=== PATIENT | male | born 1960 | race Caucasian/White ===

== ENCOUNTER → 2016-08-25 | Outpatient (CLI) | payer BC, OTHER ==
[~2016-08-25] VITALS: Ht 165.1 cm; Wt 87.5 kg
[~2016-08-25] MED LIST: ADULT LOW DOSE81 MG PO; ALLOPURINOL 10100 M1 PO; AMBIEN 10 MG TA10 MG PO; AMBIEN CR 6.26.25 MG PO; AMBIENCR PO; ASPIRIN325 PO; FISH OIL 1,0001 EAC5 PO; HALCION0.25 MG PO; LYRICA 75 MG CA75 MG PO; NEURONTIN 300300 M1 PO; OXYCONTIN20 M1 PO; PERCOCET 10-321 EACH PO; RESTORIL15 MG PO; TRILEPTAL150 MG OR; TRILEPTAL150 MG PO
--- NOTE | ~2016-08-25 | HPC ---
[facility] [place] [address] PAIN MANAGEMENT CONSULTATION Name: EUGENIOADALBERTO Oksana Room #: REG [facility] Margaret#: [id number] Admission: 08/25/16 Attend Phys: Noe Jason DO Discharge: Date of : 58 Report #: [id number] THIS REPORT FOR: //name// CC: Harris Jason The patient is a very pleasant 55-year-old gentleman, well known to the pain clinic, typically treated for cervical radiculopathy, status post fairly extensive posterior decompression and neuropathic pain, requiring complex medication management. At last visit, we were concerned for what appeared to be some ongoing persistent hypertension. He returns to pain clinic today. He was seen for a prolonged visit from approximately 08:00 a.m. to 08:30. Greater than 50% of this 25+ minute visit was spent counseling the patient. The patient has been stable on OxyContin 20 mg b.i.d. with Percocet 10/325 up to 4 a day. This equates to a little bit of a supratherapeutic dose, 80 mg of oxycodone equivalent to about 120 mEq of morphine. Nonetheless, he has been quite functional and stable. No problems with daytime somnolence, mental acuity changes, and/or constipation. Last urine drug screen was on 05/16/2016; was positive for prescribed medications and no other medications. We had prescribed Halcion off and on for sleep. He is completely weaned off of this agent. He does use Lyrica, had been prescribed 75 mg 2 tablets at night. He had weaned down to one at night, and really did not notice any manager of change the last 3-4 weeks when he dropped that dose. He returns to pain clinic today noting medications are generally quite sufficient to keep him functional. 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 Notes he has some chronic right shoulder pain, but overall rates his pain at 2/10. PHYSICAL EXAMINATION: Shows a 55-year-old gentleman, BMI is 32.1 kilograms per meter squared. Blood pressure today is 140/84, pulse of 69, respirations are 14. Still on no antihypertensive agents, but he has tried to eat little better, and is trying to lose some weight. BMI today is 32.1 kilograms per meter squared. He had been in the 32.6-32.4, BMI recently. He is again trying to get down to BMI of around 30 kilograms per meter squared. Doing this with dietary discretion and activity. RECOMMENDATION: Long discussion with the patient today about, trying to gradually wean opiate, our goal will be to get down to around 60 mg of oxycodone. Roughly equivalent to 90 mEq of morphine. We talked about trying to drop one Percocet a day (currently takes 4 p.r.n.), drop down to about 3 a day over the next month, and if able, perhaps drop one tablet to 1/2 tablet i.e., using two of the 10 mg Percocet and one 5 mg Percocet p.r.n. Again, with a total goal of dropping down to two Percocet 10/325 and continuing OxyContin [address] [address] PAIN MANAGEMENT CONSULTATION Name: ADALBERTO BECKER Room #: REG [facility] Robles#: [id number] Admission: 08/25/16 Attend Phys: Noe SarabiaGaudencio Eren, DO Discharge: Date of : 58 Report #: [id number] mg b.i.d. over the month. We also talked about Lyrica, having dropped from 150 mg to 75 mg with no notable change in the past 3 weeks. I did give him samples of 50 mg Lyrica tablets to take at bedtime (21 tablets). If he does 3 weeks of this medication, and notes no significant change or i.e. increase in his pain, we will have him simply discontinue that agent altogether. We reviewed the fact that opiate medications are being used to provide analgesia adequate to support activities of daily living, not attempting to achieve a specific pain score on the 0-10 Visual Analog Scale. The current opiate medications are providing sufficient analgesia to allow the patient to participate in activities of daily living. The patient is not exhibiting any aberrant behavior suggestive of drug diversion. The patient is not having any adverse reactions to medications. The patient is not suffering from daytime somnolence or mental acuity changes. The patient is managing opiate-induced constipation with appropriate ciod-mrs-lumugrf agents and dietary considerations. The patient was counseled on concern for caution with operating a motor vehicle while using opiate medications. A physical exam was performed and the patient's functional status was evaluated. All patients with back pain were advised against the bed rest greater than 4 days and were advised to return to normal activities. Pain score assessment was noted and the treatment plan was reviewed with the patient. All current medications, both prescribed and OTC were reviewed and reconciled on the electronic medical record. Tobacco screening was accomplished and smoking cessation was advised when indicated. BMI was noted and diet/exercise modification was recommended for all patients following outside normal parameters. I reviewed with the patient today their responsibilities to safeguard prescription medications, reviewed their responsibility to utilize medications only as prescribed by the physician. They are to seek and receive pain medications only from 1 physician group ( [facility]). They are to use 1 pharmacy and keep the clinic informed if they change pharmacies. Their responsibilities include making followup visits in a timely fashion and to avoid abrupt discontinuation of medication usage. Their responsibilities further include bringing their medications (bottles from the pharmacy with residual pills) to the visit for possible confirmation of pill counts and the patient understands it is their responsibility to submit to random drug screens to ensure both that the medications prescribed are present, and that no other controlled substances are present. All prescriptions provided today were generated electronically. ASSESSMENT: Cervical radiculopathy status post decompressive laminectomy, neuropathic pain component, requiring complex medication management. Prolonged [facility] [address] [place] [address] PAIN MANAGEMENT CONSULTATION Name: ADALBERTO BECKER Room #: REG [facility] Margaret#: [id number] Admission: 08/25/16 Attend Phys: Noe Jason DO Discharge: Date of : 58 Report #: [id number] visit with the patient today, spent reviewing therapeutic options, discussing rationale for trying to use the lowest opiate load, i.e., no significant changes in functional status, with low doses, greater than about 90-100 mg of morphine and concern for higher risk of drug overdose with these agents. The patient understands and is "on board". Discharged in good and stable condition. Followup will be in 3 months for reevaluation. I will have him bring back his prescription bottles. We will do pill-count and see how he was able to wean agents, although for the next 3 months, I did write for his current dose, i.e. Percocet 10/325 up to 4 a day, along with his baseline OxyContin 20 mg b.i.d. <ELECTRONICALLY SIGNED> By: Noe Jason DO 08/27/16 0729 [id number] Noe Jason DO /nt
[2016-08-25 08:16] VITALS: BP 140/84
== END | disposition home or self-care (01) ==
LOC: PAIN 06:57
DX: M54.12 Radiculopathy, cervical region (principal); G89.29 Other chronic pain; Z98.890 Other specified postprocedural states

== ENCOUNTER → 2016-10-31 | Outpatient (CLI) | payer BC, OTHER ==
[~2016-10-31] VITALS: Ht 167.6 cm; Wt 88.0 kg
[~2016-10-31] MED LIST changes: +PERCOCET 7.5-31 EAC1 PO; +PERCOCET 7.5-31 EACH PO
--- NOTE | ~2016-10-31 | HPC ---
[facility] [place] [place] [address] PAIN MANAGEMENT CONSULTATION Name: EUGENIO,ADALBERTO Oksana [facility] [id number] Admission: 10/31/16 Attend Phys: Noe Jason DO Discharge: Date of : 58 Report #: [id number] THIS REPORT FOR: //name// CC: JEFFERY Jason DATE OF SERVICE: 10/31/2016 The patient is a very pleasant 56-year-old gentleman long treated for cervical radiculopathy status post decompressive laminectomy, neuropathic pain requiring complex medication management. Last seen in the pain clinic on 08/25/2016. Continued on baseline narcotics including OxyContin 20 mg b.i.d. with Percocet 10/325 four a day. He successfully weaned off Lyrica with really no significant changes in his function. Today, we did discuss concern for supratherapeutic opiate load, taken essentially 150 mEq of morphine (100 mg of oxycodone) daily. After a long discussion, we elected to trial weaning 10% overall, we will decrease Percocet 10/325 to a 7.5/325 four a day, continuing OxyContin 20 mg b.i.d. The patient notes overall pain is about 3/10, well controlled with current medication. Notes he feels a little more alert during the day having weaned Lyrica. Notes pain continues in the neck and right shoulder. PHYSICAL EXAMINATION: Shows a 56-year-old gentleman, BMI is 31.3 kilograms per meter squared. Vital signs show modest hypertension of 159/87, pulse 67, respirations 14. Cervical range of motion is limited, significant cosmetic defect in the mid cervical spine, status post decompressive laminectomy multiple levels here. Does have limited cervical range of motion. Upper extremity strength, however, is preserved. Medications were reconciled. ASSESSMENT: Symptomatic cervical radiculopathy, status post decompressive laminectomy and neuropathic pain requiring complex medication management. RECOMMENDATIONS: Continue OxyContin 20 mg b.i.d. We will try decreasing the Percocet 10/325 to 7.5/325 tablet. This represents an overall 10% decrease in his opiate load. Follow up in 3 months for reevaluation. A note is made of that urine drug screen 05/26/2016 was positive for prescribed medications. [address] [address] PAIN MANAGEMENT CONSULTATION Name: EUGENIOADALBERTO Room #: REG [facility] Robles#: [id number] Admission: 10/31/16 Attend Phys: Noe Jason DO Discharge: Date of : 58 Report #: [id number] Discharged in good and stable condition. Follow up in 3 months. By: [id number] Noe Jason DO /nt
[2016-10-31 09:53] VITALS: BP 159/87
== END ==
LOC: PAIN 06:55
DX: M54.12 Radiculopathy, cervical region (principal)

== ENCOUNTER → 2017-01-12 | Outpatient (CLI) | payer BC, OTHER ==
[~2017-01-12] VITALS: Ht 167.6 cm; Wt 87.5 kg
--- NOTE | ~2017-01-12 | HPC ---
[place] [address] PAIN MANAGEMENT CONSULTATION Name: EUGENIOADALBERTO Oksana Room #: REG [facility] Robles#: [id number] Admission: 01/12/17 Attend Phys: Noe Jason DO Discharge: Date of : 58 Report #: [id number] THIS REPORT FOR: //name// CC: JEFFERY Jason DATE OF SERVICE: 01/12/2017 HISTORY OF PRESENT ILLNESS: The patient is a very pleasant 56-year-old gentleman being seen for symptomatic cervical radiculopathy status post extensive decompressive laminectomy, neuropathic pain requiring complex medication management. The patient returns to pain clinic today, last visit 10/31/2016. We continued OxyContin 20 mg b.i.d., but decreased Percocet from 10-7.5/325 four a day. Decreased oxycodone overall dose nominally from 80 to 70 mg. The patient notes perhaps some slight change, but states he is doing reasonably well with this. 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 He went back to school, got a masters in education. 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 We have elected to continue the Percocet 7.5/325 through this month and next month. They resume football training in March when I will increase his Percocet back to 10/325 at that point. He notes that discontinuing the Lyrica, which we had done earlier in the year, has afforded significant improvement in his sedation concerns. Really did not have significant change in neuropathic pain. PHYSICAL EXAMINATION: Otherwise notes 56-year-old gentleman. BMI is 31.2 kilograms per meter squared. Significant cervical kyphotic change secondary to the surgery and a posterior midline defect secondary to the extensive decompression. Upper extremity strength is preserved though he has pain, right greater than left arm and slight decrease in subjective strength, though again he is fairly robust active gentleman I cannot deter a significant loss. HEART: Regular rhythmical. LUNGS: Clear. VITAL SIGNS: Stable as noted in the EMR. We reviewed the fact that opiate medications are being used to provide analgesia adequate to support activities of daily living, not attempting to achieve a specific pain score on the 0-10 Visual Analog Scale. The current opiate medications are providing sufficient analgesia to allow the patient to participate in activities of daily living. The patient is not exhibiting any aberrant behavior suggestive of drug diversion. The patient is not having any [address] [address] PAIN MANAGEMENT CONSULTATION Name: EUGENIOADALBERTO Oksana Room #: REG [facility] Margaret#: [id number] Admission: 01/12/17 Attend Phys: Noe Jason DO Discharge: Date of : 58 Report #: [id number] adverse reactions to medications. The patient is not suffering from daytime somnolence or mental acuity changes. The patient is managing opiate-induced constipation with appropriate okrz-hdy-emckase agents and dietary considerations. The patient was counseled on concern for caution with operating a motor vehicle while using opiate medications. A physical exam was performed and the patient's functional status was evaluated. All patients with back pain were advised against the bed rest greater than 4 days and were advised to return to normal activities. Pain score assessment was noted and the treatment plan was reviewed with the patient. All current medications, both prescribed and OTC were reviewed and reconciled on the electronic medical record. Tobacco screening was accomplished and smoking cessation was advised when indicated. BMI was noted and diet/exercise modification was recommended for all patients following outside normal parameters. I reviewed with the patient today their responsibilities to safeguard prescription medications, reviewed their responsibility to utilize medications only as prescribed by the physician. They are to seek and receive pain medications only from 1 physician group ( [facility]). They are to use 1 pharmacy and keep the clinic informed if they change pharmacies. Their responsibilities include making followup visits in a timely fashion and to avoid abrupt discontinuation of medication usage. Their responsibilities further include bringing their medications (bottles from the pharmacy with residual pills) to the visit for possible confirmation of pill counts and the patient understands it is their responsibility to submit to random drug screens to ensure both that the medications prescribed are present, and that no other controlled substances are present. All prescriptions provided today were generated electronically. ASSESSMENT: Chronic pain syndrome requiring complex medication management, neuropathic pain, status post cervical decompressive laminectomy requiring complex medication management. RECOMMENDATION: 1. Continue OxyContin 20 mg b.i.d. unchanged. 2. Continue Percocet 7.5/325 for this month and next month, I have taken the liberty of increasing back to 10/325 product for the "eight week" release prescription, which will be in March. I will see him back in 3 months to evaluate efficacy. Incidentally, the last urine drug screen was in May of 2016, positive for prescribed medications. <ELECTRONICALLY SIGNED> By: Noe Jason DO 01/14/17 1252 [id number] 1212 Noe Jason DO /nt
[2017-01-12 08:00] VITALS: BP 130/86
== END | disposition home or self-care (01) ==
LOC: PAIN 06:33
DX: G89.4 Chronic pain syndrome (principal); M54.12 Radiculopathy, cervical region; F11.20 Opioid dependence, uncomplicated; Z98.890 Other specified postprocedural states

== ENCOUNTER → 2017-04-03 | Outpatient (CLI) | payer BC, OTHER ==
--- NOTE | ~2017-04-03 | HPC ---
[facility] [place] [address] PAIN MANAGEMENT CONSULTATION Name: EUGENIO,ADALBERTO Oksana Room #: REG [facility] Margaret#: [id number] Admission: 04/03/17 Attend Phys: Noe Jason DO Discharge: Date of : 58 Report #: [id number] THIS REPORT FOR: //name// CC: JEFFERY Jason HISTORY OF PRESENT ILLNESS: The patient is a pleasant 56-year-old gentleman long treated for symptomatic cervical radiculopathy status post extensive decompressive laminectomy, neuropathic pain requiring high risk complex medication management. The patient has been remarkably stable on current medications, though at last visit, we did increase his Percocet a little from 7.5/325 to 10/325. The patient returns to pain clinic today noting pain is in the neck, right shoulder and arm, chronic, rates at 4 on a VAS and exacerbated with activity. 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 He continues to be quite physically active. Notes that the slight increase in his opiate analgesic has been helpful. We reviewed the fact that opiate medications are being used to provide analgesia adequate to support activities of daily living, not attempting to achieve a specific pain score on the 0-10 Visual Analog Scale. The current opiate medications are providing sufficient analgesia to allow the patient to participate in activities of daily living. The patient is not exhibiting any aberrant behavior suggestive of drug diversion. The patient is not having any adverse reactions to medications. The patient is not suffering from daytime somnolence or mental acuity changes. The patient is managing opiate-induced constipation with appropriate ykhu-iei-prrrnzc agents and dietary considerations. The patient was counseled on concern for caution with operating a motor vehicle while using opiate medications. A physical exam was performed and the patient's functional status was evaluated. All patients with back pain were advised against the bed rest greater than 4 days and were advised to return to normal activities. Pain score assessment was noted and the treatment plan was reviewed with the patient. All current medications, both prescribed and OTC were reviewed and reconciled on the electronic medical record. Tobacco screening was accomplished and smoking cessation was advised when indicated. BMI was noted and diet/exercise modification was recommended for all patients following outside normal parameters. I reviewed with the patient today their responsibilities to safeguard prescription medications, reviewed their responsibility to utilize medications only as prescribed by the physician. They are to seek and receive pain medications only from 1 physician group ( [facility]). They are to use 1 pharmacy and keep the clinic informed if they change pharmacies. Their [address] [address] PAIN MANAGEMENT CONSULTATION Name: ADALBERTO BECKER [facility] [id number] Admission: 04/03/17 Attend Phys: Noe Jason DO Discharge: Date of : 58 Report #: [id number] responsibilities include making followup visits in a timely fashion and to avoid abrupt discontinuation of medication usage. Their responsibilities further include bringing their medications (bottles from the pharmacy with residual pills) to the visit for possible confirmation of pill counts and the patient understands it is their responsibility to submit to random drug screens to ensure both that the medications prescribed are present, and that no other controlled substances are present. All prescriptions provided today were generated electronically. PHYSICAL EXAMINATION: Shows a 56-year-old gentleman. BMI is 31.2 kilograms per meter squared. Vital signs stable. Cervical range of motion is significantly limited, also has significant cosmetic defect, status post extensive posterior decompressive laminectomy. Upper extremity strength, however, is fairly preserved. Gait is tandem. Lower extremity strength is preserved. ASSESSMENT: Symptomatic cervical radiculopathy status post decompressive laminectomy requiring high risk complex medication management. RECOMMENDATIONS: 1. Buccal swab today, no aberrant behavior suggestive for drug diversion, simply complying with opiate consent to treat contract. 2. Continue current medication including OxyContin 20 mg b.i.d. and Percocet 10/325 up to 4 a day. 3. Follow up in 3 months for reevaluation, earlier if needed. <ELECTRONICALLY SIGNED> By: Noe Jason DO 04/09/17 0847 1219 Noe Jason DO /nt
[2017-04-03 13:07] VITALS: BP 148/95
== END | disposition home or self-care (01) ==
LOC: PAIN 12:53
DX: M54.12 Radiculopathy, cervical region (principal); G89.29 Other chronic pain; Z98.890 Other specified postprocedural states; Z87.891 Personal history of nicotine dependence

== ENCOUNTER → 2017-09-24 | Outpatient (CLI) | payer BC, OTHER ==
[~2017-09-24] VITALS: Ht 167.6 cm; Wt 91.5 kg
[~2017-09-24] MED LIST changes: +OXYCONTIN10 M1 PO; +PERCOCET 10-321 EAC1 PO
--- NOTE | ~2017-09-24 | HPC ---
[facility] [place] [address] PAIN MANAGEMENT CONSULTATION Name: EUGENIOADALBERTO Oksana Room #: REG [facility] Margaret#: [id number] Admission: 09/24/17 Attend Phys: Noe Jason DO Discharge: Date of : 58 Report #: [id number] THIS REPORT FOR: //name// CC: JEFFERY Jason DATE OF SERVICE: 09/24/2017 HISTORY OF PRESENT ILLNESS: The patient is a very pleasant 56-year-old gentleman being treated for cervical radiculopathy status post decompressive laminectomy, neuropathic pain requiring complex medication management. Last seen in the pain clinic on 06/18/2017, continued on Percocet 10/325 four a day for breakthrough pain, OxyContin 20 mg b.i.d. for baseline pain. Equates to about 120 mEq of morphine. We talked about weaning in the spring. He returns to the pain clinic today. His prior random drug screen on 04/03/2017 was positive for prescribed medications as well as nicotine. He states he does use occasional tobacco "dip." I did stress the patient today there is a correlation with nicotine use and axial back pain. Suggest that he consider discontinuing nicotine use. Otherwise, he notes he is doing well with current medication. 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 Does note with physical activity, pain does become a little more problematic. Continues to have pain in neck, shoulder and arms. We reviewed the fact that opiate medications are being used to provide analgesia adequate to support activities of daily living, not attempting to achieve a specific pain score on the 0-10 Visual Analog Scale. The current opiate medications are providing sufficient analgesia to allow the patient to participate in activities of daily living. The patient is not exhibiting any aberrant behavior suggestive of drug diversion. The patient is not having any adverse reactions to medications. The patient is not suffering from daytime somnolence or mental acuity changes. The patient is managing opiate-induced constipation with appropriate fyud-qjt-lmmsyes agents and dietary considerations. The patient was counseled on concern for caution with operating a motor vehicle while using opiate medications. A physical exam was performed and the patient's functional status was evaluated. All patients with back pain were advised against the bed rest greater than 4 days and were advised to return to normal activities. Pain score assessment was noted and the treatment plan was reviewed with the patient. All current medications, both prescribed and OTC were reviewed and reconciled on the electronic medical record. Tobacco screening was accomplished and smoking cessation was advised when indicated. BMI was noted and diet/[place] [address] PAIN MANAGEMENT CONSULTATION Name: ADALBERTO BECKER Room #: REG [facility] Margaret#: [id number] Admission: 09/24/17 Attend Phys: Noe Jason DO Discharge: Date of : 58 Report #: [id number] modification was recommended for all patients following outside normal parameters. I reviewed with the patient today their responsibilities to safeguard prescription medications, reviewed their responsibility to utilize medications only as prescribed by the physician. They are to seek and receive pain medications only from 1 physician group ([facility]). They are to use 1 pharmacy and keep the clinic informed if they change pharmacies. Their responsibilities include making followup visits in a timely fashion and to avoid abrupt discontinuation of medication usage. Their responsibilities further include bringing their medications (bottles from the pharmacy with residual pills) to the visit for possible confirmation of pill counts and the patient understands it is their responsibility to submit to random drug screens to ensure both that the medications prescribed are present, and that no other controlled substances are present. All prescriptions provided today were generated electronically. PHYSICAL EXAMINATION: Otherwise unchanged. Cervical range of motion is significantly limited. Fairly significant cosmetic defect, status post posterior approach of cervical fusion. Upper extremity strength, however, is fairly significant. Gait is tandem. Lower extremity strength is preserved. ASSESSMENT: Symptomatic cervical radiculopathy, status post posterior decompressive laminectomy and fusion, neuropathic pain requiring complex medication management. RECOMMENDATION: Continue OxyContin 20 mg b.i.d. For the next 3 months, we will continue Percocet 10/325 up to 4 a day. We will plan on decreasing this to 7.5/325 at next visit, we had tried to wean opiate in the summer in the past and has done reasonably well. Discharged in good and stable condition. Follow up in 3 months for reevaluation. <ELECTRONICALLY SIGNED> By: Noe Jason DO 09/28/17 0747 [id number] Noe Jason DO /nt
[2017-09-24 14:17] VITALS: BP 151/83
== END ==
LOC: PAIN 07:10
DX: M54.12 Radiculopathy, cervical region (principal); M96.1 Postlaminectomy syndrome, not elsewhere classified; Z79.899 Other long term (current) drug therapy

== ENCOUNTER → 2017-12-10 | Outpatient (CLI) | payer BC, OTHER ==
[~2017-12-10] VITALS: Ht 167.6 cm; Wt 89.2 kg
[~2017-12-10] MED LIST changes: -OXYCONTIN10 M1 PO; -PERCOCET 10-321 EAC1 PO
--- NOTE | ~2017-12-10 | HPC ---
[facility] [place] [place] [address] [place] [address] PAIN MANAGEMENT CONSULTATION Name: EUGENIOADALBERTO Oksana Room #: REG [facility]#: [id number] Admission: 12/10/17 Attend Phys: Noe Jason DO Discharge: Date of : 58 Report #: [id number] THIS REPORT FOR: //name// CC: JEFFERY Jason DATE OF SERVICE: 12/10/2017 The patient is a very pleasant 57-year-old gentleman, long treated in the pain clinic for symptomatic cervical radiculopathy requiring complex medication management with neuropathic pain component. The patient had extensive posterior cervical decompression with some myelopathic symptoms, but has been stable on Percocet 10/325 four a day with OxyContin 20 mg for breakthrough pain b.i.d. This equates to fairly high dose of opiate, 120 mg of morphine a day. At last visit, 09/24/2017, we had discussed need to start to wean opiate load over time. The patient was also counseled regarding nicotine use (tobacco "dip"). He returns to pain clinic today noting subjective pain score is 2 on a VAS. 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 He continues to be quite physically active. 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 He returned to school getting 2 master's degrees, both in education and special needs education. He is desirous of making an impact on young lives and is looking towards working in school administration in the near future. 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 He denies any problem with daytime somnolence, mental acuity changes or constipation. PHYSICAL EXAMINATION: GENERAL: Shows a pleasant 57-year-old gentleman with significant cosmetic defect status post extensive posterior cervical decompression, mild cervical kyphosis. VITAL SIGNS: The BMI 31.7 kg per meter squared, blood pressure 143/88, pulse 60, respirations 16, room air oxygen saturation is 100%. MUSCULOSKELETAL: Cervical range of motion is limited. Upper extremity strength is preserved. Gait is tandem. We reviewed the fact that opiate medications are being used to provide analgesia adequate to support activities of daily living, not attempting to achieve a specific pain score on the 0-10 Visual Analog Scale. [place] [address] PAIN MANAGEMENT CONSULTATION Name: ADALBERTO BECKER Room #: REG [facility]#: [id number] Admission: 12/10/17 Attend Phys: Noe Jason DO Discharge: Date of : 58 Report #: [id number] medications are providing sufficient analgesia to allow the patient to participate in activities of daily living. The patient is not exhibiting any aberrant behavior suggestive of drug diversion. The patient is not having any adverse reactions to medications. The patient is not suffering from daytime somnolence or mental acuity changes. The patient is managing opiate-induced constipation with appropriate ixme-gpn-jgjcxvd agents and dietary considerations. The patient was counseled on concern for caution with operating a motor vehicle while using opiate medications. A physical exam was performed and the patient's functional status was evaluated. All patients with back pain were advised against the bed rest greater than 4 days and were advised to return to normal activities. Pain score assessment was noted and the treatment plan was reviewed with the patient. All current medications, both prescribed and OTC were reviewed and reconciled on the electronic medical record. Tobacco screening was accomplished and smoking cessation was advised when indicated. BMI was noted and diet/exercise modification was recommended for all patients following outside normal parameters. I reviewed with the patient today their responsibilities to safeguard prescription medications, reviewed their responsibility to utilize medications only as prescribed by the physician. They are to seek and receive pain medications only from 1 physician group ( [facility]). They are to use 1 pharmacy and keep the clinic informed if they change pharmacies. Their responsibilities include making followup visits in a timely fashion and to avoid abrupt discontinuation of medication usage. Their responsibilities further include bringing their medications (bottles from the pharmacy with residual pills) to the visit for possible confirmation of pill counts and the patient understands it is their responsibility to submit to random drug screens to ensure both that the medications prescribed are present, and that no other controlled substances are present. All prescriptions provided today were generated electronically. Last random drug screen, 04/03/2017, was positive for prescribed medications. ASSESSMENT: Symptomatic cervical radiculopathy status post decompressive laminectomy, myelopathic symptoms with neuropathic pain component, requiring complex medication management. RECOMMENDATION: As discussed with the patient on the last visit, we pointed out that we are trying to wean all patients to under 90 mg of morphine equivalents. Currently, he is at 120. We have elected to continue OxyContin 20 mg b.i.d. unchanged. We will decrease Percocet 10/325 to 7.5/325. It is roughly an 11% decrease in his overall opiate load, dropping down to 70 mg of oxycodone (105 morphine milligram equivalents). I have taken the liberty of writing for this medication for 2 months. We will follow up at that time. Our plan will be to [address] [address] PAIN MANAGEMENT CONSULTATION Name: ADALBERTO BECKER Room #: [facility]#: [id number] Admission: 12/10/17 Attend Phys: Noe Jason DO Discharge: Date of : 58 Report #: [id number] decrease further down to 90 mg morphine equivalent (60 mg of oxycodone). We can do this by decreasing Percocet to 5/325 or by decreasing the OxyContin load. Unfortunately, OxyContin 15 mg, I believe, might not be covered by his insurance, we may have to use asymmetric dosing, OxyContin 20 mg in the morning and 10 at night. The patient was discharged in good and stable condition after moderately prolonged visit, greater than 50% of the 25-minute visit was spent counseling the patient, reviewing CDC recommendations and discussing our plan for opiate wean. <ELECTRONICALLY SIGNED> By: Noe Jason DO 12/14/17 0711 [id number] Noe Jason DO /nt
[2017-12-10 13:47] VITALS: BP 143/88
== END ==
LOC: PAIN 05:51
DX: M54.12 Radiculopathy, cervical region (principal)

== ENCOUNTER → 2018-01-11 | Outpatient (CLI) | payer BC, OTHER ==
[~2018-01-11] VITALS: Ht 167.6 cm; Wt 90.7 kg
[~2018-01-11] MED LIST changes: +OXYCONTIN10 M1 PO
--- NOTE | ~2018-01-11 | HPC ---
[facility] [place] [address] [place] [address] PAIN MANAGEMENT CONSULTATION Name: JADEN BECKER Oksana Room #: REG [facility]#: [id number] Admission: 01/11/18 Attend Phys: Noe Jason DO Discharge: Date of : 58 Report #: [id number] THIS REPORT FOR: //name// CC: JEFFERY OSBORNE Physician staff Noe Jason DATE OF SERVICE: 01/11/2018 Jaden "Chris" Ernestine is a pleasant 57-year-old gentleman being seen for symptomatic cervical radiculopathy and myelopathic concerns, requiring complex medication management. Last visit 12/10/2017, we had lowered his overall opiate load. He had been stable for several years and OxyContin 20 mg b.i.d. with Percocet 10/325 four a day, equating to roughly 120 mg of morphine equivalents. Last visit, we tried decreasing the Percocet to a 7.5/325 product, 1 tablet 4 times a day, decreasing his overall opiate load to 105 mg morphine equivalents daily. Last random drug screen on 04/03/2017 is positive for prescribed medications, did note positive nicotine. The patient admits to chewing tobacco. He did quit smoking years ago. The patient returns today noting he is doing well. Pain is a 2 on a VAS. Does have some concerns about some increasing weakness in the left hand. He states he has been dropping objects. He had had prior fairly extensive cervical fusion, posterior decompression due to myelopathic symptoms now a decade ago (initial cervical decompression had been 15 years ago). PHYSICAL EXAMINATION: Today does show a 57-year-old gentleman, BMI is 32.3 kg/m2. Blood pressure is 145/72, pulse 69, respirations 14. Cranial nerves 2-12 are grossly intact. Pupils equal, react to light and accommodation. Extraocular muscles are intact. Cervical range of motion is limited in all planes, perhaps 15-20%. Upper extremity strength is generally preserved with the exception that he has some left-sided hypothenar wasting and decreased hand grasp with opposition to the ring and thumb and fifth finger. Two-point discrimination is symmetric about the arms and hands. Biceps reflex is difficult to elicit on the left. It is +1 on the right. Brachioradialis and triceps reflexes are symmetric. Tinel's is negative. Lower extremity patellar reflex absent on the left, 2/4 in the left, 1/4 on the right. Achilles reflexes are symmetric. We reviewed the fact that opiate medications are being used to provide analgesia adequate to support activities of daily living, not attempting to achieve a specific pain score on the 0-10 Visual Analog Scale. The current opiate [address] [address] PAIN MANAGEMENT CONSULTATION Name: JADEN BECKER Room #: REG [facility]#: [id number] Admission: 01/11/18 Attend Phys: Noe Jason DO Discharge: Date of : 58 Report #: [id number] medications are providing sufficient analgesia to allow the patient to participate in activities of daily living. The patient is not exhibiting any aberrant behavior suggestive of drug diversion. The patient is not having any adverse reactions to medications. The patient is not suffering from daytime somnolence or mental acuity changes. The patient is managing opiate-induced constipation with appropriate iuov-uju-peecfkr agents and dietary considerations. The patient was counseled on concern for caution with operating a motor vehicle while using opiate medications. A physical exam was performed and the patient's functional status was evaluated. All patients with back pain were advised against the bed rest greater than 4 days and were advised to return to normal activities. Pain score assessment was noted and the treatment plan was reviewed with the patient. All current medications, both prescribed and OTC were reviewed and reconciled on the electronic medical record. Tobacco screening was accomplished and smoking cessation was advised when indicated. BMI was noted and diet/exercise modification was recommended for all patients following outside normal parameters. I reviewed with the patient today their responsibilities to safeguard prescription medications, reviewed their responsibility to utilize medications only as prescribed by the physician. They are to seek and receive pain medications only from 1 physician group ( [facility]). They are to use 1 pharmacy and keep the clinic informed if they change pharmacies. Their responsibilities include making followup visits in a timely fashion and to avoid abrupt discontinuation of medication usage. Their responsibilities further include bringing their medications (bottles from the pharmacy with residual pills) to the visit for possible confirmation of pill counts and the patient understands it is their responsibility to submit to random drug screens to ensure both that the medications prescribed are present, and that no other controlled substances are present. All prescriptions provided today were generated electronically. I had a prolonged visit with the patient today. The patient was seen from approximately 8:10 to 8:35; greater than 50% of the 25-minute visit was spent counseling the patient. Again, we reviewed concerns for continued nicotine use. I talked about trying to get opiate load under 90 mg morphine equivalents; we discussed CDC risk statification groupings. To this end, we have elected to start an asymmetric OxyContin dosing. States his pain is primarily throughout the day with activity. We will continue OxyContin 20 mg in the morning, but decreased OxyContin 10 at bedtime. Med change today: 1. Oxycontin 20 mg bid decreased to 20 mg AM and 10 mg PM, [address] [place] [address] PAIN MANAGEMENT CONSULTATION Name: JADEN BECKER Room #: [facility]#: [id number] Admission: 01/11/18 Attend Phys: Noe Jason DO Discharge: Date of : 58 Report #: [id number] 2. Percocet 7.5/325 QID (no change) 3. MS Equivalent : 105 mg/d decreased to 90 mg MS equiv/d. The patient is traveling out of state next month. I did instruct the nurses to enable "early release" on his prescriptions if needed. The patient was given 4 and 8-week release prescriptions presently. We will have him follow up in 10-12 weeks. We will have him follow up with one of the [facility] physicians. He has been remarkably stable on his medications. He has always been compliant. No problems with aberrant behaviors suggestive of drug diversion. Discharged in good and stable condition today. Medication changes as noted above. <ELECTRONICALLY SIGNED> By: Noe Jason DO 01/11/18 1047 [id number] Noe Jason DO /nt
[2018-01-11 08:08] VITALS: BP 145/72
== END ==
LOC: PAIN 07:08
DX: G89.29 Other chronic pain (principal); M54.12 Radiculopathy, cervical region; F11.90 Opioid use, unspecified, uncomplicated; Z79.899 Other long term (current) drug therapy

== ENCOUNTER → 2018-03-16 | Outpatient (CLI) | payer BC, OTHER ==
[~2018-03-16] VITALS: Ht 167.6 cm; Wt 90.7 kg
--- NOTE | ~2018-03-16 | HPC ---
[facility] [address] [place] [address] PAIN MANAGEMENT CONSULTATION Name: EUGENIOADALBERTO Oksana Room #[facility] [id number] Admission: 03/16/18 Attend Phys: Doug Jason DO Discharge: Date of : 58 Report #: [id number] THIS REPORT FOR: //name// CC: Doug Whipple Physician staff DATE OF SERVICE: 03/16/2018 REFERRING PHYSICIAN: Dr. Arnie Whipple CHIEF COMPLAINT: Neck pain, bilateral upper extremity pain and paresthesias. HISTORY OF PRESENT ILLNESS: As you know, the patient is a pleasant 57-year-old male who has been followed by my partner, Dr. Noe Jason for extended period of time for chronic neck pain with myelopathic concerns. The patient has been continued on medication management and has been remarkably stable with his oxycodone and OxyContin combinations. He is currently taking 30 mg OxyContin per day along with 7.5/325 Percocet 4 a day. He is at the maximum CDC recommended guidelines of 90 morphine equivalents a day. He returns today in followup visit, further adjustments in his medication management to reduce below the CDC's guidelines, so that he can be seen on an every other month basis. He denies any side effects of medication. He is placing the pain score no greater than 2/10. He states his pain is chronic and aching in sensation and exacerbated with activities and medications, rest and seated position tends to improve pain. ALLERGIES: No known drug allergies. CURRENT MEDICATIONS: [place]-3 fish oil 1 tab per day, allopurinol 100 mg once a day, oxycodone 7.5/325 four times a day, OxyContin 10 mg morning and 20 mg at night. SOCIAL HISTORY: The patient denies tobacco, alcohol, IV or illicit drug use. 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 He is working, not receiving workmen's compensation, unaccompanied today. IMAGING: No new imaging available. K-TRACS and M-TRACS shows no concerning entries. He appears to be filling his medications appropriately. PHYSICAL EXAMINATION: VITAL SIGNS: Blood pressure 143/84, pulse is 57, respiratory rate 16 and unlabored, the patient 99% on room air. Height 5 feet 6 inches tall, weight [address] [address] PAIN MANAGEMENT CONSULTATION Name: ADALBERTO BECKER Oksana Room #: REG [facility]#: [id number] Admission: 03/16/18 Attend Phys: Doug Jason DO Discharge: Date of : 58 Report #: [id number] pounds and BMI calculated 32.3. GENERAL: Well-developed, well-nourished, well-hydrated, 57-year-old male. He appears his stated age. He is placing current pain score no greater than 2/10. HEENT: Normocephalic and atraumatic. Pupils are equal, round and reactive to light. EXTREMITIES: Show no clubbing, no cyanosis and no edema. MUSCULOSKELETAL: Upper extremity strength is generally well preserved 5/5 except for strength over the index and thumb on the left, which shows atrophy of the musculature. Triceps, brachioradialis and biceps reflexes were equal and symmetrical. Tinel's is negative. Phalen's negative. Cervical provocation testing is met with severe restriction of motion. ASSESSMENT: 1. Cervical radiculopathy. 2. Cervical spondylosis with radiculopathy. 3. Displacement of cervical intervertebral disk with radiculopathy. 4. Failed cervical spine surgery. 5. Chronic intractable pain. 6. Opioid dependency. PLAN: 1. The patient returns today in followup visit stating he is receiving good benefit with the OxyContin and oxycodone combination. We have discussed with the patient CDC's guidelines of 90 morphine equivalents or greater require the patient to be seen on a monthly basis. He wishes to reduce his dose to fall within the 50 to 90 mg range of morphine equivalents, which will allow him to be seen on an every other month basis. We will make the following changes in medication therapy today. 2. The patient was provided prescription of OxyContin 10 mg dose in the morning and 20 mg at night. He was given 30 tablets of each with releases of today and 4 weeks from today. 3. The patient was provided a prescription of Percocet 7.5/325 up to 4 tablets a day. I have given the patient #110 tablets, which places the patient below daily CDC's recommended 90 morphine equivalents when calculated over a month. This will allow the patient to be seen on a every other month basis. He was given a prescription of 110 tablets releasing today, 4 weeks from today, 3 months' worth of medication. 4. The patient will submit to a drug screen. He has showed appropriate drug screen in 04/2017. This is a followup per our opioid contract. Findings will be available to the patient next week. 5. We reviewed the fact that opiate medications are being used to provide analgesia adequate to support activities of daily living, not attempting to achieve a specific pain score on the 0-10 Visual Analog Scale. The current opiate medications are providing sufficient analgesia to allow the patient to participate in activities of daily living. The patient is not exhibiting any aberrant behavior suggestive of drug diversion. The patient is not having any [address] [place] [address] PAIN MANAGEMENT CONSULTATION Name: ADALBERTO BECKER Room #: REG [facility]#: [id number] Admission: 03/16/18 Attend Phys: Doug Jason DO Discharge: Date of : 58 Report #: [id number] adverse reactions to medications. The patient is not suffering from daytime somnolence or mental acuity changes. The patient is managing opiate-induced constipation with appropriate desw-dkw-xbctfqx agents and dietary considerations. The patient was counseled on concern for caution with operating a motor vehicle while using opiate medications. A physical exam was performed and the patient's functional status was evaluated. All patients with back pain were advised against the bed rest greater than 4 days and were advised to return to normal activities. Pain score assessment was noted and the treatment plan was reviewed with the patient. All current medications, both prescribed and OTC were reviewed and reconciled on the electronic medical record. Tobacco screening was accomplished and smoking cessation was advised when indicated. BMI was noted and diet/exercise modification was recommended for all patients following outside normal parameters. I reviewed with the patient today their responsibilities to safeguard prescription medications, reviewed their responsibility to utilize medications only as prescribed by the physician. They are to seek and receive pain medications only from 1 physician group ( [facility]). They are to use 1 pharmacy and keep the clinic informed if they change pharmacies. Their responsibilities include making followup visits in a timely fashion and to avoid abrupt discontinuation of medication usage. Their responsibilities further include bringing their medications (bottles from the pharmacy with residual pills) to the visit for possible confirmation of pill counts and the patient understands it is their responsibility to submit to random drug screens to ensure both that the medications prescribed are present, and that no other controlled substances are present. All prescriptions provided today were generated electronically. 6. The patient will return to our clinic in 2 months for medication management, at that time discuss efficacy of the medication and determine if any other changes need to be made. <ELECTRONICALLY SIGNED> By: Doug Jason DO 03/17/18 0838 [id number] Doug Jason DO /nt
[2018-03-16 08:02] VITALS: BP 143/84
== END ==
LOC: PAIN 07:01
DX: M47.22 Other spondylosis with radiculopathy, cervical region (principal); M50.20 Other cervical disc displacement, unspecified cervical region; G89.4 Chronic pain syndrome; F11.20 Opioid dependence, uncomplicated

== ENCOUNTER → 2018-04-28 | Outpatient (CLI) | payer BC, OTHER ==
[~2018-04-28] VITALS: Ht 167.6 cm; Wt 89.0 kg
[~2018-04-28] MED LIST changes: +PERCOCET 10-321 EAC1 PO
--- NOTE | ~2018-04-28 | HPC ---
[facility] [place] [address] PAIN MANAGEMENT CONSULTATION Name: ADALBERTO BECKER Room #: REG [facility]#: [id number] Admission: 04/28/18 Attend Phys: Doug Jason DO Discharge: Date of : 58 Report #: [id number] THIS REPORT FOR: //name// CC: Dr. Arnie OSBORNE Physician staff DATE OF SERVICE: 04/28/2018 REFERRING PHYSICIAN: Dr. Arnie Osborne. CHIEF COMPLAINT: Neck pain, bilateral upper extremity pain with paresthesias. HISTORY OF PRESENT ILLNESS: As you know, the patient is a very pleasant 57-year-old male who returns today in followup visit for adjustments in medication management. As you are aware, we made changes in his medication therapy at last visit to try to comply with CDC's recommended no more than 90 morphine equivalents a day. The patient returns wishing to adjust further the medications to provide better analgesic benefit, but remained within the recommended 90 morphine equivalents. He states his pain today is at level 2/10. Denies any changes in medical history other than the changes in our treatments from last visit. He returns today to make further adjustments. ALLERGIES: No known drug allergies. CURRENT MEDICATIONS: [place]-3 fish oil 1 tab per day, allopurinol 100 mg once a day, oxycodone 7.5/325 three times a day, OxyContin 10 mg in the morning and 20 mg at night. SOCIAL HISTORY: The patient denies tobacco, alcohol, IV or illicit drug use. 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 He is working, not receiving workmen's compensation, unaccompanied today. IMAGING: No new imaging available. K-TRACS and MO-TRACS shows no concerning injuries, appears to be filling his medications appropriately. PHYSICAL EXAMINATION: VITAL SIGNS: Blood pressure 137/82, pulse 65, respiratory rate 18 and unlabored. The patient is 97% on room air. Height 5 feet 6 inches tall, weight 196.2 pounds, BMI calculated 31.7. GENERAL: Well-developed, well-nourished, well-hydrated 57-year-old male appearing stated age, placing pain score today 2/10. HEENT: Normocephalic, atraumatic. Pupils equal, round, reactive to light. [facility] [address] [place] [address] PAIN MANAGEMENT CONSULTATION Name: ADALBERTO BECKER Oksana Room #: REG [facility].#: [id number] Admission: 04/28/18 Attend Phys: Doug Jason DO Discharge: Date of : 58 Report #: [id number] EXTREMITIES: Show no clubbing, no cyanosis, no edema. MUSCULOSKELETAL Lower extremity strength is generally well preserved 5/5 except for strength over the index finger and thumb on the left, which does show again atrophy of the musculature, triceps, brachioradialis and biceps reflexes equal and symmetrical 2+/4. Tinel's negative and Phalen's negative. Cervical provocation testing is met with severe restriction of motion. Pain generated with this maneuver. ASSESSMENT: 1. Cervical radiculopathy. 2. Cervical spondylosis with radiculopathy. 3. Displacement of cervical intervertebral disk with radiculopathy. 4. Failed cervical spine surgery. 5. Chronic intractable pain. 6. Complicated medication management. PLAN: 1. The patient returns today in followup visit requesting further alteration in his medication management. At present, he does not feel the 7.5/325 mg Percocets are working as well as it tends. He is wishing to reduce his long-acting formulation to 10 mg twice a day and increasing his breakthrough pain medication from 7.5/325 oxycodone to 10/325 oxycodone. This does remain just at the highest level of opioids recommended in a chronic pain patient. We have agreed to alter the medication at this time. We will trial this for 2 months and then determine if continuation of this treatment would be warranted. 2. The patient was provided prescription of OxyContin 10 mg dose 1 tab p.o. b.i.d., #60, releases of today, 4 weeks from today, 3 months' worth of medication. 3. The patient was provided prescription of Percocet 10/325 one tab p.o. q. 6 hours p.r.n. for pain, #120, releases of today, 4 weeks from today, 2 months' worth of medication. 4. We reviewed the fact that opiate medications are being used to provide analgesia adequate to support activities of daily living, not attempting to achieve a specific pain score on the 0-10 Visual Analog Scale. The current opiate medications are providing sufficient analgesia to allow the patient to participate in activities of daily living. The patient is not exhibiting any aberrant behavior suggestive of drug diversion. The patient is not having any adverse reactions to medications. The patient is not suffering from daytime somnolence or mental acuity changes. The patient is managing opiate-induced constipation with appropriate wxmb-qbj-ayknldd agents and dietary considerations. The patient was counseled on concern for caution with operating a motor vehicle while using opiate medications. A physical exam was performed and the patient's functional status was evaluated. All patients with back pain were advised against the bed rest greater than 4 days and were advised to return to normal activities. Pain score assessment was [address] [place] [address] PAIN MANAGEMENT CONSULTATION Name: ADALBERTO BECKER Room #: [facility]#: [id number] Admission: 04/28/18 Attend Phys: Doug Jason DO Discharge: Date of : 58 Report #: [id number] noted and the treatment plan was reviewed with the patient. All current medications, both prescribed and OTC were reviewed and reconciled on the electronic medical record. Tobacco screening was accomplished and smoking cessation was advised when indicated. BMI was noted and diet/exercise modification was recommended for all patients following outside normal parameters. I reviewed with the patient today their responsibilities to safeguard prescription medications, reviewed their responsibility to utilize medications only as prescribed by the physician. They are to seek and receive pain medications only from 1 physician group ( [facility]). They are to use 1 pharmacy and keep the clinic informed if they change pharmacies. Their responsibilities include making followup visits in a timely fashion and to avoid abrupt discontinuation of medication usage. Their responsibilities further include bringing their medications (bottles from the pharmacy with residual pills) to the visit for possible confirmation of pill counts and the patient understands it is their responsibility to submit to random drug screens to ensure both that the medications prescribed are present, and that no other controlled substances are present. All prescriptions provided today were generated electronically. 5. The patient will return to our clinic in 2 months for ongoing medication therapy, earlier if further changes need to be made. <ELECTRONICALLY SIGNED> By: Doug Jason DO 05/04/18 1259 [id number] Doug Jason DO /javan
[2018-04-28 13:52] VITALS: BP 137/82
== END ==
LOC: PAIN 06:55
DX: M47.22 Other spondylosis with radiculopathy, cervical region (principal); G89.4 Chronic pain syndrome; M50.10 Cervical disc disorder with radiculopathy, unspecified cervical region; Z79.899 Other long term (current) drug therapy

== ENCOUNTER → 2018-06-16 | Outpatient (CLI) | payer BC, OTHER ==
[~2018-06-16] VITALS: Ht 167.6 cm; Wt 88.8 kg
--- NOTE | ~2018-06-16 | HPC ---
[facility] [address] PAIN MANAGEMENT CONSULTATION Name: ADALBERTO BECKER Room #: REG [facility]#: [id number] Admission: 06/16/18 Attend Phys: Doug Jason DO Discharge: Date of : 58 Report #: [id number] THIS REPORT FOR: //name// CC: Doug Whipple Physician staff DATE OF SERVICE: 06/16/2018 REFERRING PHYSICIAN: Dr. Arnie Whipple. CHIEF COMPLAINT: Neck pain, bilateral upper extremity pain and paresthesias. HISTORY OF PRESENT ILLNESS: As you know, the patient is a very pleasant 57-year-old male who returns today in followup visit for continuation of medication therapy. He is placing current pain score 2/10. He is denying any side effects to the medication at this time including somnolence, decreased mental acuity, disorientation, confusion or mental slowing. He indicates pain is increased with activity, improves with medications, rest and seated position. He returns today in followup visit requesting to receive refill of medications. We have taken the liberty of reviewing K-TRACS, which shows no aberrant entries. He has been appropriate with his therapy to date. He returns requesting refills of his Lyrica, OxyContin and Percocet. ALLERGIES: No known drug allergies. CURRENT MEDICATIONS: [place]-3 fish oil 1 tab per day, allopurinol 100 mg once a day, oxycodone 7.5/325 three times a day, OxyContin 10 mg in the morning and 20 mg at night and Lyrica 75 mg b.i.d. SOCIAL HISTORY: The patient denies tobacco, alcohol or IV or illicit drug use. 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 He is working, not receiving workmen's compensation, unaccompanied today. IMAGING DATA: No new imaging available. PHYSICAL EXAMINATION: VITAL SIGNS: Blood pressure 139/90, pulse 68 and respiratory rate 16 and unlabored. The patient is 97% on room air. Height 5 feet 6 inches tall, weight 195.8 pounds and BMI calculated 31.6. GENERAL: Well-developed, well-nourished, well-hydrated 57-year-old male appearing stated age, placing current pain score at around 2/10. HEENT: Normocephalic and atraumatic. Pupils equal, round and reactive to light. Extraocular muscles are intact. Sclerae nonicteric, without injection. EXTREMITIES: Show no clubbing, no [place]osis [place] [address] PAIN MANAGEMENT CONSULTATION Name: ADALBERTO BECKER [facility] #: [facility] [id number] Admission: 06/16/18 Attend Phys: Doug Jason DO Discharge: Date of : 58 Report #: [id number] MUSCULOSKELETAL: Upper extremity strength is well preserved 5/5, muscle bulk and tone equal and symmetrical in upper extremities. There does appear to be slight atrophy of the musculature over the left index finger and thumb. Phalen's negative and Tinel's negative. Cervical provocation testing met with severe restriction of motion. Spurling's test positive. ASSESSMENT: 1. Cervical radiculopathy. 2. Cervical spondylosis with radiculopathy. 3. Displacement of the cervical intervertebral disk with radiculopathy. 4. Failed cervical spine surgery. 5. Chronic intractable pain. 6. Complicated medication management. PLAN: 1. The patient returns today in followup visit requesting refills of his OxyContin and Percocet as well as his Lyrica. We initiated Lyrica therapy in hopes of improving neuropathic pain. He is noticing some improvement. We will begin escalating this dose further as he is showing no side effects and he has noted some improvement. The following changes were made in medication management today. 2. The patient will continue his Lyrica 75 mg dose, we will escalate to b.i.d. dose with plans to escalate up to 150 mg b.i.d. if necessary. He was given a prescription of Lyrica today with 2 refills. 3. The patient was provided a prescription of OxyContin 10 mg dose. He will take 1 tab in the morning and 1 tab at noon. He was given #60 tablets, releases of today and 4 weeks from today, 2 months' worth of medication. 4. The patient was provided prescription of OxyContin 20 mg dose 1 tab p.o. at bedtime, #30 with releases of today, 4 weeks from today and 2 months' worth of medication. 5. The patient was provided prescription of Percocet 10/325 one tab p.o. q. 6 hours p.r.n. for pain, #120, releasing today, 4 weeks from today. 6. We reviewed the fact that opiate medications are being used to provide analgesia adequate to support activities of daily living, not attempting to achieve a specific pain score on the 0-10 Visual Analog Scale. The current opiate medications are providing sufficient analgesia to allow the patient to participate in activities of daily living. The patient is not exhibiting any aberrant behavior suggestive of drug diversion. The patient is not having any adverse reactions to medications. The patient is not suffering from daytime somnolence or mental acuity changes. The patient is managing opiate-induced constipation with appropriate bpek-vul-pnkbonx agents and dietary considerations. The patient was counseled on concern for caution with operating a motor vehicle while using opiate medications. A physical exam was performed and the patient's functional status was evaluated. All patients with back pain were advised against the bed rest greater than 4 [facility] [address] [place] [address] PAIN MANAGEMENT CONSULTATION Name: EUGENIOADALBERTO Oksana Room #: REG [facility]#: [id number] Admission: 06/16/18 Attend Phys: Doug Jason DO Discharge: Date of : 58 Report #: [id number] days and were advised to return to normal activities. Pain score assessment was noted and the treatment plan was reviewed with the patient. All current medications, both prescribed and OTC were reviewed and reconciled on the electronic medical record. Tobacco screening was accomplished and smoking cessation was advised when indicated. BMI was noted and diet/exercise modification was recommended for all patients following outside normal parameters. I reviewed with the patient today their responsibilities to safeguard prescription medications, reviewed their responsibility to utilize medications only as prescribed by the physician. They are to seek and receive pain medications only from 1 physician group ( [facility]). They are to use 1 pharmacy and keep the clinic informed if they change pharmacies. Their responsibilities include making followup visits in a timely fashion and to avoid abrupt discontinuation of medication usage. Their responsibilities further include bringing their medications (bottles from the pharmacy with residual pills) to the visit for possible confirmation of pill counts and the patient understands it is their responsibility to submit to random drug screens to ensure both that the medications prescribed are present, and that no other controlled substances are present. All prescriptions provided today were generated electronically. 7. We will see the patient back in followup visit in 2 months. By: 0812 0900 Doug Jason DO /nt
[2018-06-16 09:56] VITALS: BP 139/90
== END ==
LOC: PAIN 07:09
DX: M54.2 Cervicalgia (principal); M25.511 Pain in right shoulder; G89.29 Other chronic pain; Z79.899 Other long term (current) drug therapy; Z79.891 Long term (current) use of opiate analgesic; Z72.89 Other problems related to lifestyle

== ENCOUNTER → 2018-08-11 | Outpatient (CLI) | payer BC, OTHER ==
[~2018-08-11] VITALS: Ht 167.6 cm; Wt 91.6 kg
[~2018-08-11] MED LIST changes: +OXYCODONE-ACET1 EAC2 PO
[2018-08-11 10:02] VITALS: BP 165/87
--- NOTE | 2018-08-11 10:04 | NUR ---
Pain Clinic Assessment: 1. History of Osteoarthritis: NO History of Rheumatoid Arthritis: NO 2. Height: 5 ft. 6 in. 167.6 cm. Weight: 202.0 lb. oz. 91.627 kg. Patient's BMI: 32.6 3. Vital Signs: BP: 165/87 Pulse: 73 Resp: 16 Temp: 02 Sat: 98 ECG Mon: 4. Pain Intensity: 2 5. Fall Risk: Dizziness: N Needs help standing or walking: N Fallen in the last 3 months: N Fall risk comments: 6. Patient on Blood Thinner: None 7. History of Hypertension: N 8. Opioid Therapy greater than 6 weeks: Y Opiate Contract Signed: 03/14/16 9. Risk Assessment Tool Provided: MODERATE RISK 01/07 10. Functional Assessment Tool: 11. Recreational Drug Use: Never Drug Type: Tobacco Use: Never Smoker Tobacco Type: Amount or Packs/day: How Many Years: Alcohol Use: Past use Frequency: Quant:
--- NOTE | 2018-08-12 09:16 | HPC ---
[facility] [place] [address] [place] [address] PAIN MANAGEMENT CONSULTATION Name: ADALBERTO BECKER Oksana Room #: [facility] [id number] Admission: 08/11/18 Attend Phys: Erica Puentes Discharge: Date of : 58 Report #: [id number] THIS REPORT FOR: //name// CC: Erica OSBORNE Physician staff DATE OF SERVICE: 08/11/2018 CHIEF COMPLAINT: Neck pain, bilateral upper extremity pain and paresthesias. HISTORY OF PRESENT ILLNESS: As you know, this is a very pleasant 57-year-old gentleman who returns to the pain clinic today for continuation of medication therapy. He tells me his pain score is a 2/10 today in his neck and right shoulder. He has pain increases with activity, but the medication and resting are very helpful. He tells me that the current medication regimen that he is on is a very good balance and it is working well for him. He would like a refill of his medications. He does tell me that he will be going on vacation in October for spring break with his family and would need an early refill by just a few days at that time. He just wanted us to be aware of that and wondering if we would be able to accommodate an early refill for his vacation. The patient does deny any daytime sleepiness or constipation. He tells me that he takes medications to help with any constipation that he may have [id number]-[id number]. He would like a refill of his OxyContin, oxycodone and Lyrica today. ALLERGIES: No known drug allergies. CURRENT LIST OF MEDICATIONS: Oxycodone 10/325 up to 4 times a day, OxyContin 10 mg twice a day, Lyrica 75 mg daily, allopurinol 100 mg daily and fish oil twice a day. PQRS: 1. Denies any osteoarthritis or rheumatoid arthritis. 2. Height is 5 feet 6 inches, weight is 202, BMI is 32.6. 3. Vital signs: Blood pressure 165/87, pulse is 73, respirations 16, oxygen sat 98%. 4. Pain score is 2/10. 5. Fall risk. Denies dizziness, does not need help walking or standing, has not fallen in the last 3 months. 6. The patient is not on any blood thinners or any antihypertensive medicines. 7. Opiate therapy is greater than 6 weeks, therefore an opioid contract is on the chart. 8. His risk assessment tool is moderate and his functional assessment of 21/70. 9. The patient does not use any recreational drugs, does not smoke and does not drink alcohol. [address] [address] PAIN MANAGEMENT CONSULTATION Name: ADALBERTO BECKER Room #: REG Frank Robles#: [id number] Admission: 08/11/18 Attend Phys: Erica Puentes Discharge: Date of : 58 Report #: [id number] We did check the prescription monitoring system, filling appropriately from Dr. Doug Jason. It still remains on his K-TRACS of a prescription filled by Dioni Ordaz, which [facility] inadvertently put the wrong physician in. The patient tried to get that removed, but it is a script actually from Dr. Doug Jason. The patient does have a recent drug screen on the chart. PHYSICAL EXAMINATION: GENERAL: This is a well-developed, well-nourished, well-hydrated 57-year-old gentleman who appears his stated age, placing his pain score at 2/10 today. HEENT: Normocephalic, atraumatic. Pupils equal, round and reactive to light. Extraocular muscles are intact. EXTREMITIES: No clubbing, no cyanosis, no edema. MUSCULOSKELETAL: Upper extremity strength is judged to be 5/5 symmetrically in upper extremity, does complain of some tenderness in his right shoulder and lower neck. The patient complains of pain on rotational range of motion of his cervical spine. ASSESSMENT: 1. Cervical radiculopathy. 2. Cervical spondylosis with radiculopathy. 3. Displacement of cervical intervertebral disk with radiculopathy. 4. Failed cervical spine surgery. 5. Chronic intractable pain. 6. Complicated medical management under terms of written opioid agreement. We reviewed the fact that opiate medications are being used to provide analgesia adequate to support activities of daily living, not attempting to achieve a specific pain score on the 0-10 Visual Analog Scale. The current opiate medications are providing sufficient analgesia to allow the patient to participate in activities of daily living. The patient is not exhibiting any aberrant behavior suggestive of drug diversion. The patient is not having any adverse reactions to medications. The patient is not suffering from daytime somnolence or mental acuity changes. The patient is managing opiate-induced constipation with appropriate mmbv-yse-dopwoss agents and dietary considerations. The patient was counseled on concern for caution with operating a motor vehicle while using opiate medications. A physical exam was performed and the patient's functional status was evaluated. All patients with back pain were advised against the bed rest greater than 4 days and were advised to return to normal activities. Pain score assessment was noted and the treatment plan was reviewed with the patient. All current medications, both prescribed and OTC were reviewed and reconciled on the electronic medical record. Tobacco screening was accomplished and smoking cessation was advised when indicated. BMI was noted and diet/exercise modification was recommended for all patients following outside normal parameters. [facility] [address] [place] [address] PAIN MANAGEMENT CONSULTATION Name: ADALBERTO BECKER Room #: REG RUBA Robles#: [id number] Admission: 08/11/18 Attend Phys: Erica SO Sanchezjc Discharge: Date of : 58 Report #: [id number] I reviewed with the patient today their responsibilities to safeguard prescription medications, reviewed their responsibility to utilize medications only as prescribed by the physician. They are to seek and receive pain medications only from 1 physician group ( [facility]). They are to use 1 pharmacy and keep the clinic informed if they change pharmacies. Their responsibilities include making followup visits in a timely fashion and to avoid abrupt discontinuation of medication usage. Their responsibilities further include bringing their medications (bottles from the pharmacy with residual pills) to the visit for possible confirmation of pill counts and the patient understands it is their responsibility to submit to random drug screens to ensure both that the medications prescribed are present, and that no other controlled substances are present. All prescriptions provided today were generated electronically. PLAN: 1. Treatment options were discussed with the patient today, he tells me that he is doing well with his pain control on his current pain regimen. He tells me that he has decreased his Lyrica from twice a day to once at bedtime, feels that is very helpful, script given today for 75 mg of Lyrica #30 with one additional refill. 2. OxyContin 10 mg twice a day, script given for today and 4-week of that medication. The patient recently filled medicine and is on time. 3. Percocet , #120, scripts for today and for an 8-week release, giving him 3 months of his Percocet, this will make it, so his OxyContin and his oxycodone are together at the same time. The patient had had extra OxyContin in the past, from when he was weaning down, he still had some extra medications that he had used, so we will only give him 2 months of that medication today. Within 3 months, the patient should be back on the same schedule for his narcotic scripts. The patient verbalizes understanding of why these scripts were written this way today. 4. The patient will be going on spring break in October. He was requesting early refill at that time. The pharmacy will call and ask for an early refill for 2-3 days early from his scheduled fill, so he does not have to try and fill the prescription in [place]. A note will be written on the chart for this. The patient is seen today in collaboration with Dr. Doug Jason. He will follow up in 3 months' time frame and then return to a 2-month followup appointment after that appointment. <ELECTRONICALLY SIGNED> By: Erica Puentes 08/12/18 0916 [id number] Erica Puentes /nt
== END ==
LOC: PAIN 06:51
DX: M47.22 Other spondylosis with radiculopathy, cervical region (principal); M50.10 Cervical disc disorder with radiculopathy, unspecified cervical region; G89.4 Chronic pain syndrome; Z79.891 Long term (current) use of opiate analgesic; Z79.899 Other long term (current) drug therapy

== ENCOUNTER → 2018-10-25 | Outpatient (CLI) | payer BC, OTHER ==
[~2018-10-25] VITALS: Ht 167.6 cm; Wt 91.4 kg
[2018-10-25 08:13] VITALS: BP 149/99
--- NOTE | 2018-10-25 08:21 | NUR ---
Pain Clinic Assessment: 1. History of Osteoarthritis: NO History of Rheumatoid Arthritis: NO 2. Height: 5 ft. 6 in. 167.6 cm. Weight: 201.4 lb. oz. 91.355 kg. Patient's BMI: 32.5 3. Vital Signs: BP: 149/99 Pulse: 63 Resp: 16 Temp: 02 Sat: 100 ECG Mon: 4. Pain Intensity: 2 5. Fall Risk: Dizziness: N Needs help standing or walking: N Fallen in the last 3 months: N Fall risk comments: 6. Patient on Blood Thinner: None 7. History of Hypertension: N 8. Opioid Therapy greater than 6 weeks: Y Opiate Contract Signed: 03/14/16 9. Risk Assessment Tool Provided: 3 low 10. Functional Assessment Tool: 11. Recreational Drug Use: Never Drug Type: Tobacco Use: Never Smoker Tobacco Type: Amount or Packs/day: How Many Years: Alcohol Use: Past use Frequency: Quant:
--- NOTE | 2018-10-26 07:39 | HPC ---
[facility] [address] [address] [place] [address] PAIN MANAGEMENT CONSULTATION Name: ADALBERTO BECKER Room #: REG [facility] Margaret#: [id number] Admission: 10/25/18 ������������������ Attend Phys: Erica Puentes Discharge: ������������������ Date of : 58 Report #: [id number] THIS REPORT FOR: //name// CC: Erica OSBORNE Physician staff DATE OF SERVICE: 10/25/2018 CHIEF COMPLAINT: Neck pain and bilateral upper extremity pain. HISTORY OF PRESENT ILLNESS: The patient returns to the pain clinic today for refill of his medications. He is a very pleasant 58-year-old gentleman who has had ongoing neck pain and right shoulder pain. 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 He tells me in the past he had tried Dr. 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 He tells me that medications and rest are very helpful in relieving his pain. He denies any problems with constipation. He tells me he also finds that his Lyrica is very helpful, especially in the evening and at nighttime. ALLERGIES: No known drug allergies. CURRENT LIST OF MEDICATIONS: Lyrica 75 mg daily, oxycodone 10/325 four times a day, OxyContin 10 mg b.i.d., allopurinol 100 mg daily and omega-3 1000 mg b.i.d. PQRS: 1. The patient denies any history of osteoarthritis or rheumatoid arthritis. 2. Height is 5 feet 6 inches, weight is 201 and BMI is 32. 3. Vital signs: Blood pressure 149/99, pulse 63, respirations 16 and oxygen sat 100. 4. Pain score 2/10. 5. Denies dizziness, does not need help walking or standing, has not fallen in the last 3 months. 6. The patient is not on blood thinners and he does not take hypertension medicines. 7. Opioid therapy is greater than 6 weeks; therefore, an opioid signed contract is on the chart. His risk assessment tool is low. Functional assessment is . 8. Recreational drug use, he denies. He does not smoke and occasionally drinks alcohol. We checked the prescription monitoring system. The patient filling appropriately for his medications from our doctor and there is also a recent drug screen on the chart that coincides with the medicines [place] [address] PAIN MANAGEMENT CONSULTATION Name: ADALBERTO BECKER Room #: REG [facility]#: [id number] Admission: 10/25/18 ������������������ Attend Phys: Erica Puentes Discharge: ������������������ Date of : 58 Report #: [id number] PHYSICAL EXAMINATION: GENERAL: This is a well-developed, well-nourished 58-year-old gentleman who appears his stated age. Placing his pain score today at 2/10. He is alert and orientated and a very good historian. HEENT: Normocephalic and atraumatic. Pupils equal, round and reactive to light. Extraocular eye muscles are intact. EXTREMITIES: No clubbing, no cyanosis and no edema. MUSCULOSKELETAL: Upper extremity strength judged to be 5/5 in all major muscle groups. He does complain of some pain in his neck with rotational range of motion. ASSESSMENT: 1. Cervical radiculopathy. 2. Cervical spondylosis with radiculopathy. 3. Displacement of cervical intervertebral disk with radiculopathy. 4. Failed cervical spine surgery. 5. Complex intractable pain. 6. Complex medical management in terms of written opioid agreement. We reviewed the fact that opiate medications are being used to provide analgesia adequate to support activities of daily living, not attempting to achieve a specific pain score on the 0-10 Visual Analog Scale. The current opiate medications are providing sufficient analgesia to allow the patient to participate in activities of daily living. The patient is not exhibiting any aberrant behavior suggestive of drug diversion. The patient is not having any adverse reactions to medications. The patient is not suffering from daytime somnolence or mental acuity changes. The patient is managing opiate-induced constipation with appropriate gqwn-qbf-yghynjz agents and dietary considerations. The patient was counseled on concern for caution with operating a motor vehicle while using opiate medications. A physical exam was performed and the patient's functional status was evaluated. All patients with back pain were advised against the bed rest greater than 4 days and were advised to return to normal activities. Pain score assessment was noted and the treatment plan was reviewed with the patient. All current medications, both prescribed and OTC were reviewed and reconciled on the electronic medical record. Tobacco screening was accomplished and smoking cessation was advised when indicated. BMI was noted and diet/exercise modification was recommended for all patients following outside normal parameters. I reviewed with the patient today their responsibilities to safeguard prescription medications, reviewed their responsibility to utilize medications only as prescribed by the physician. They are to seek and receive pain medications only from 1 physician group ( [facility]). They are to use [address] [address] PAIN MANAGEMENT CONSULTATION Name: ADALBERTO BECKER Room #: REG RUBA Robles#: [id number] Admission: 10/25/18 ������������������ Attend Phys: Erica Puentes Discharge: ������������������ Date of : 58 Report #: [id number] pharmacy and keep the clinic informed if they change pharmacies. Their responsibilities include making followup visits in a timely fashion and to avoid abrupt discontinuation of medication usage. Their responsibilities further include bringing their medications (bottles from the pharmacy with residual pills) to the visit for possible confirmation of pill counts and the patient understands it is their responsibility to submit to random drug screens to ensure both that the medications prescribed are present, and that no other controlled substances are present. All prescriptions provided today were generated electronically. PLAN: 1. We discussed treatment options with the patient today. I discussed with him that OxyContin has been slowly being removed from the market by the assembler faucets and he takes OxyContin 10 twice a day. The patient also is at the 90 morphine milliequivalent according to the CDC guidelines; therefore, we should start to think about decreasing his medications. The patient's pain score is 2/10, very well controlled with these medications that he is willing to try and decrease. We discussed a plan as to take twice a day for another 2 weeks, then to decrease to 1 tablet a day for the next 2 weeks in the next month and then to decrease to one pill every other day. If he feels like he can just stop after one pill a day, he will do that, but this gives him several months to decrease his medications. He will continue to take his oxycodone 10/325 four times a day. The patient understands the need to decrease his medications. He thinks that he should be able to do that, not having too much increase in pain. He states that injections used to help in the past and we discussed having another cervical injection if his pain during this decrease does become bothersome. 2. Script was given today for OxyContin 10 mg #60 for release today and 4-week. 3. Oxycodone 10/325, #120 to be released today and 4-week and Lyrica 75 mg tablets, #30 with one additional refill. 4. The patient will call if he is having problems reducing his medicines or for when he needs another appointment for medication refills. 5. The patient seen with Dr. Doug Jason who collaborated care. ��������������������������������������������� <ELECTRONICALLY SIGNED> ���������������������������������������� By: Erica Puentes ��������������������������������������������� 10/26/18 0739 [id number] Erica Puentes /nt
== END ==
LOC: PAIN 06:50
DX: M47.22 Other spondylosis with radiculopathy, cervical region (principal); M50.10 Cervical disc disorder with radiculopathy, unspecified cervical region; G89.4 Chronic pain syndrome; Z79.891 Long term (current) use of opiate analgesic; Z79.899 Other long term (current) drug therapy

== ENCOUNTER → 2018-12-16 | Outpatient (CLI) | payer BC, OTHER ==
[~2018-12-16] VITALS: Ht 167.6 cm; Wt 89.6 kg
[2018-12-16 08:52] VITALS: BP 143/91
--- NOTE | 2018-12-16 09:05 | NUR ---
Pain Clinic Assessment: 1. History of Osteoarthritis: NO History of Rheumatoid Arthritis: NO 2. Height: 5 ft. 6 in. 167.6 cm. Weight: 197.6 lb. oz. 89.631 kg. Patient's BMI: 31.9 3. Vital Signs: BP: 143/91 Pulse: 69 Resp: 16 Temp: 02 Sat: 100 ECG Mon: 4. Pain Intensity: 4 NOW 7 AVG 5. Fall Risk: Dizziness: N Needs help standing or walking: N Fallen in the last 3 months: N Fall risk comments: 6. Patient on Blood Thinner: None 7. History of Hypertension: N 8. Opioid Therapy greater than 6 weeks: Y Opiate Contract Signed: 03/14/16 9. Risk Assessment Tool Provided: 3 low 10. Functional Assessment Tool: 11. Recreational Drug Use: Never Drug Type: Tobacco Use: Never Smoker Tobacco Type: Amount or Packs/day: How Many Years: Alcohol Use: Past use Frequency: Quant:
--- NOTE | 2018-12-17 08:17 | HPC ---
[facility] [place] [address] PAIN MANAGEMENT CONSULTATION Name: ADALBERTO BECKER [facility]: [facility] [id number] Admission: 12/16/18 ������������������ Attend Phys: Erica Puentes Discharge: ������������������ Date of : 58 Report #: [id number] THIS REPORT FOR: //name// CC: Erica OSBORNE Physician staff DATE OF SERVICE: 12/16/2018 CHIEF COMPLAINT: Neck pain and bilateral upper extremity pain. HISTORY OF PRESENT ILLNESS: This is a very pleasant 58-year-old gentleman who returns to the pain clinic today for his ongoing chronic neck and right shoulder pain. He tells me his pain score is 4 currently, but an average is 7/10. 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 He tells me he has no problems with constipation or daytime sleepiness. His pain is worse with his activity, but the medications and resting and sitting are very helpful. ALLERGIES: No known drug allergies. EGGS. MEDICATIONS: Lyrica 75 mg daily, Percocet 10/325 up to 4 times a day, OxyContin 10 mg b.i.d., allopurinol daily and fish oil daily. PQRS: 1. Denies any history of osteoarthritis or rheumatoid arthritis. 2. Height is 5 feet 6 inches, weight is 197 pounds, BMI is 31. 3. Vital signs: Blood pressure 143/91, pulse is 69, respirations 16, oxygen sat is 100. 4. Pain score is 4/10 with an average of 7/10. 5. Denies dizziness. Does not need help walking or standing. Has not fallen in the last three months. 6. The patient is not on any blood thinners. He does not take medicine for hypertension. 7. Opioid therapy is greater than 6 weeks; therefore, opioid signed contact is on the chart. 8. Risk assessment tool is low. Functional assessment is . 9. Recreational drug use: He denies. He is not a smoker and does not drink alcohol. We did check the prescription monitoring system. The patient is filling appropriately for his medications. He does have a recent drug screen on the chart. No aberrant behavior noted and he does tell me he safeguards his medications. [address] [address] PAIN MANAGEMENT CONSULTATION Name: ADALBERTO BECKER Room #: REG Frank Robles#: [id number] Admission: 12/16/18 ������������������ Attend Phys: Erica Puentes Discharge: ������������������ Date of : 58 Report #: [id number] PHYSICAL EXAMINATION: GENERAL: This is a well-developed, well-nourished 58-year-old gentleman, who appears his stated age. Placing his pain score today at 4/10. He is alert and orientated and his affect is appropriate. HEENT: Normocephalic, atraumatic. Pupils equal, round and reactive to light. Extraocular eye muscles are intact. EXTREMITIES: No clubbing, no cyanosis, no edema. MUSCULOSKELETAL: Complains of pain in his neck with rotational range of motion and flexion, extension that does radiate into his upper right shoulder. His upper extremity strength judged to be 5/5 in all major muscle groups. ASSESSMENT: 1. Cervical radiculopathy. 2. Cervical spondylosis with radiculopathy. 3. Displacement of cervical intervertebral disk with radiculopathy. 4. Failed cervical spine surgery. 5. Complex intractable pain. 6. Complex medical management in terms of written opioid agreement. We reviewed the fact that opiate medications are being used to provide analgesia adequate to support activities of daily living, not attempting to achieve a specific pain score on the 0-10 Visual Analog Scale. The current opiate medications are providing sufficient analgesia to allow the patient to participate in activities of daily living. The patient is not exhibiting any aberrant behavior suggestive of drug diversion. The patient is not having any adverse reactions to medications. The patient is not suffering from daytime somnolence or mental acuity changes. The patient is managing opiate-induced constipation with appropriate nany-uqs-yspizpc agents and dietary considerations. The patient was counseled on concern for caution with operating a motor vehicle while using opiate medications. A physical exam was performed and the patient's functional status was evaluated. All patients with back pain were advised against the bed rest greater than 4 days and were advised to return to normal activities. Pain score assessment was noted and the treatment plan was reviewed with the patient. All current medications, both prescribed and OTC were reviewed and reconciled on the electronic medical record. Tobacco screening was accomplished and smoking cessation was advised when indicated. BMI was noted and diet/exercise modification was recommended for all patients following outside normal parameters. I reviewed with the patient today their responsibilities to safeguard prescription medications, reviewed their responsibility to utilize medications only as prescribed by the physician. They are to seek and receive pain medications only from 1 physician group ([facility]). They are to use [address] [address] PAIN MANAGEMENT CONSULTATION Name: ADALBERTO BECKER Room #: REG RUBA Robles#: [id number] Admission: 12/16/18 ������������������ Attend Phys: Erica Puentes Discharge: ������������������ Date of : 58 Report #: [id number] pharmacy and keep the clinic informed if they change pharmacies. Their responsibilities include making followup visits in a timely fashion and to avoid abrupt discontinuation of medication usage. Their responsibilities further include bringing their medications (bottles from the pharmacy with residual pills) to the visit for possible confirmation of pill counts and the patient understands it is their responsibility to submit to random drug screens to ensure both that the medications prescribed are present, and that no other controlled substances are present. All prescriptions provided today were generated electronically. PLAN: 1. We discussed treatment options with the patient. The patient is going to try over this summer to decrease his OxyContin to try and wean off of that. He tells me he has been doing some reading about the CDC guidelines. We discussed that his morphine milliequivalent is 90. The government would like to try to have people at 50 or below. This patient does have chronic ongoing pain issues. I do not know that we will get him to that number. The patient would like to at least try to get off his OxyContin. When school is out, he is going to try to decrease to one OxyContin a day and then after 3-4 weeks, decrease the other OxyContin and see if he is able to tolerate his pain with just taking his breakthrough pain medicines. We did discuss possibly increasing his Lyrica back up to two a day if his pain increases with his radicular and neuropathic components. The patient is agreeable with this plan. 2. Scripts given today for OxyContin 10 mg #60 for release today and 4-week and oxycodone 10/325, #120 to release today and 4-week, Lyrica 75 mg q. day, #30 with one additional refill. Samples given for 75 mg of Lyrica in case the patient does need to increase his Lyrica dose after he has decreased his OxyContin. 3. The patient was instructed to call if he is having any problems with weaning and needs to ask us additional questions. 4. The patient is seen with Dr. Hanson, who collaborated care today. ��������������������������������������������� <ELECTRONICALLY SIGNED> ���������������������������������������� By: Erica Puentes ��������������������������������������������� 12/17/18 0817 [id number] [id number] Erica Puentes /nt
== END ==
LOC: PAIN 06:45
DX: M47.22 Other spondylosis with radiculopathy, cervical region (principal); M50.10 Cervical disc disorder with radiculopathy, unspecified cervical region; G89.4 Chronic pain syndrome; Z79.899 Other long term (current) drug therapy; Z98.1 Arthrodesis status

== ENCOUNTER → 2019-01-18 | Outpatient (CLI) | payer BC, OTHER | LOC: MRI 10:17 | DX: M47.22 Other spondylosis with radiculopathy, cervical region (principal); M50.121 Cervical disc disorder at C4-C5 level with radiculopathy; M50.122 Cervical disc disorder at C5-C6 level with radiculopathy; M50.123 Cervical disc disorder at C6-C7 level with radiculopathy; M48.02 Spinal stenosis, cervical region; M48.04 Spinal stenosis, thoracic region; M25.78 Osteophyte, vertebrae ==

== ENCOUNTER → 2019-03-01 | Outpatient (CLI) | payer BC, OTHER ==
[~2019-03-01] VITALS: Ht 167.6 cm; Wt 88.5 kg
[~2019-03-01] MED LIST changes: +FLEXERIL PO; +IBUPROFEN 800800 M1 PO; +MEDROL DOSPAK21 TA1 PO
[2019-03-01 08:49] VITALS: BP 158/86
--- NOTE | 2019-03-01 08:58 | NUR ---
Pain Clinic Assessment: 1. History of Osteoarthritis: NO History of Rheumatoid Arthritis: NO 2. Height: 5 ft. 6 in. 167.6 cm. Weight: 195.0 lb. oz. 88.452 kg. Patient's BMI: 31.5 3. Vital Signs: BP: 158/86 Pulse: 64 Resp: 14 Temp: 02 Sat: 99 ECG Mon: 4. Pain Intensity: 4 5. Fall Risk: Dizziness: N Needs help standing or walking: N Fallen in the last 3 months: N Fall risk comments: 6. Patient on Blood Thinner: None 7. History of Hypertension: N 8. Opioid Therapy greater than 6 weeks: Y Opiate Contract Signed: 03/14/16 9. Risk Assessment Tool Provided: 3 low 10. Functional Assessment Tool: 11. Recreational Drug Use: Never Drug Type: Tobacco Use: Never Smoker Tobacco Type: Amount or Packs/day: How Many Years: Alcohol Use: Past use Frequency: Quant:
--- NOTE | 2019-03-08 09:14 | HPC ---
[facility] [place] [address] [place] [address] PAIN MANAGEMENT CONSULTATION Name: EUGENIOADALBERTO Oksana [facility] #: [facility] [id number] Admission: 03/01/19 ������������������ Attend Phys: Doug Jason DO Discharge: ������������������ Date of : 58 Report #: [id number] THIS REPORT FOR: //name// CC: Dr. Sole OSBORNE DATE OF SERVICE: 03/01/2019 REFERRING PHYSICIAN: Dr. Osborne CHIEF COMPLAINT: Neck pain, right upper extremity pain with paresthesias, intermittent left lower extremity pain with paresthesias. HISTORY OF PRESENT ILLNESS: As you know, the patient is a very pleasant 58-year-old male returning in followup visit for medication management. He has recently seen Dr. Milton Teran, his neurosurgeon who has advised a cervical fusion. At this point, the patient and Dr. Tearn decided he would return to physical therapy to try to strengthen his right upper extremity musculature. Once he has completed this, then surgery options may be necessary. He has begun physical therapy, has been in approximately 2-3 weeks. He is seeing improvement in his mobility. Pain remains about a level 4/10. He returns today in followup visit stating medications are working beneficially despite the pain level of 4/10. He wishes a refills on medication and discuss his possible surgical options. ALLERGIES: No known drug allergies. CURRENT MEDICATIONS: Lyrica 75 mg p.o. at bedtime, Percocet 10/325 six times a day p.r.n. pain, OxyContin 10 mg b.i.d., allopurinol 100 mg once a day, and omega-3 fish oil 1 tab a day. SOCIAL HISTORY: The patient denies tobacco, alcohol, IV, or illicit drug use. He is unaccompanied today. IMAGING: No new imaging available. PHYSICAL EXAMINATION: VITAL SIGNS: Blood pressure 158/86, pulse 64, respiratory rate 14 and unlabored. The patient is 99% on room air. Height 5 feet 6 inches tall, weight 195 pounds, BMI calculated 31.5. GENERAL: Well-developed, well-nourished, well-hydrated 58-year-old male appearing stated age, pain is rated today 4/10. HEENT: Normocephalic, atraumatic. Pupils equal, round, reactive to light. EXTREMITIES: Show no clubbing, no cyanosis, and no edema. MUSCULOSKELETAL: Upper extremity strength remains symmetrical 5/5[place] [address] PAIN MANAGEMENT CONSULTATION Name: ADALBERTO BECKER Room #: [facility]#: [id number] Admission: 03/01/19 ������������������ Attend Phys: Doug Jason DO Discharge: ������������������ Date of : 58 Report #: [id number] decreased muscle bulk noted with biceps and triceps on the right when compared to left. Spurling's test is positive right. ASSESSMENT: 1. Cervical radiculopathy. 2. Cervical spondylosis with radiculopathy. 3. Displacement of cervical intervertebral disk with radiculopathy. 4. Failed cervical spine surgery. 5. Complicated medication management utilizing scheduled medications. 6. Chronic intractable pain. PLAN: 1. The patient returns today in followup visit where we have discussed at length the surgical options presented with Dr. Milton Teran at their last visit. I do feel that Dr. Teran is correct and that, a cervical fusion would be necessary. I also agree that physical therapy to maintain use of the right upper extremity is important and he has noted good improvement in his mobility, strength remains equal and symmetrical, though he does have diminished muscle bulk on the right when compared to left. This is being evaluated and treated through the physical therapy group. As for pain control, his pain is now a level 4/10, which is a reduction of nearly 50% since our last visit. He wishes no changes in medication management at this time. 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 He returns for medication management. 2. We reviewed the fact that opiate medications are being used to provide analgesia adequate to support activities of daily living, not attempting to achieve a specific pain score on the 0-10 Visual Analog Scale. The current opiate medications are providing sufficient analgesia to allow the patient to participate in activities of daily living. The patient is not exhibiting any aberrant behavior suggestive of drug diversion. The patient is not having any adverse reactions to medications. The patient is not suffering from daytime somnolence or mental acuity changes. The patient is managing opiate-induced constipation with appropriate pyzm-hbk-clwdzei agents and dietary considerations. The patient was counseled on concern for caution with operating a motor vehicle while using opiate medications. A physical exam was performed and the patient's functional status was evaluated. All patients with back pain were advised against the bed rest greater than 4 days and were advised to return to normal activities. Pain score assessment was noted and the treatment plan was reviewed with the patient. All current medications, both prescribed and OTC were reviewed and reconciled on the electronic medical record. Tobacco screening was accomplished and smoking cessation was advised when indicated. BMI was noted and diet/exercise modification was recommended for all patients following outside normal parameters. [address] [address] PAIN MANAGEMENT CONSULTATION Name: ADALBERTO BECKER Room #: REG [facility]#: [id number] Admission: 03/01/19 ������������������ Attend Phys: Doug Jason DO Discharge: ������������������ Date of : 58 Report #: [id number] I reviewed with the patient today their responsibilities to safeguard prescription medications, reviewed their responsibility to utilize medications only as prescribed by the physician. They are to seek and receive pain medications only from 1 physician group ( [facility]). They are to use 1 pharmacy and keep the clinic informed if they change pharmacies. Their responsibilities include making followup visits in a timely fashion and to avoid abrupt discontinuation of medication usage. Their responsibilities further include bringing their medications (bottles from the pharmacy with residual pills) to the visit for possible confirmation of pill counts and the patient understands it is their responsibility to submit to random drug screens to ensure both that the medications prescribed are present, and that no other controlled substances are present. All prescriptions provided today were generated electronically. 3. The patient was provided a prescription of OxyContin 10 mg dose 1 tab p.o. b.i.d., #60, releasing today and 4 weeks from today, 2 months' worth of medication. 4. The patient was provided a refill prescription of his oxycodone 10/325 one tab p.o. q. 4 hours p.r.n. for pain. I have given the patient #180 releasing today and 4 weeks from today. I did discuss with the patient that we will ultimately have to begin weaning off the immediate release medication as they are not appropriate for long-term therapy. We wish to continue the therapy at this time as he leads into his football season and will be exacerbating his pain along with his physical therapy. Once he has completed these, we will then begin weaning off the medication as tolerated. 5. The patient was provided prescription of Lyrica 75 mg dose 1 tab p.o. q.a.m. #30 tablets with 1 refill, 2 months' worth of medication. 6. We will see the patient back in followup visit in 2 months for medication management. At that time, we will also discuss the efficacy of the physical therapy provided today and discuss whether or not he will be moving forward with the surgical options if necessary. ��������������������������������������������� <ELECTRONICALLY SIGNED> ���������������������������������������� By: Doug Jason DO ��������������������������������������������� 03/08/19 0914 [id number] 0017 Doug Jason DO /nt
== END ==
LOC: PAIN 06:50
DX: M47.22 Other spondylosis with radiculopathy, cervical region (principal); M50.10 Cervical disc disorder with radiculopathy, unspecified cervical region; G89.4 Chronic pain syndrome; M79.662 Pain in left lower leg; M79.641 Pain in right hand; Z79.899 Other long term (current) drug therapy

== ENCOUNTER → 2019-04-20 | Outpatient (CLI) | payer BC, OTHER ==
[~2019-04-20] VITALS: Ht 165.1 cm; Wt 87.5 kg
[2019-04-20 08:47] VITALS: BP 157/92
--- NOTE | 2019-04-20 08:53 | NUR ---
Pain Clinic Assessment: 1. History of Osteoarthritis: NO History of Rheumatoid Arthritis: NO 2. Height: 5 ft. 5 in. 165.1 cm. Weight: 193.0 lb. oz. 87.544 kg. Patient's BMI: 32.1 3. Vital Signs: BP: 157/92 Pulse: 64 Resp: 16 Temp: 02 Sat: 99 ECG Mon: 4. Pain Intensity: 4 5. Fall Risk: Dizziness: N Needs help standing or walking: N Fallen in the last 3 months: N Fall risk comments: 6. Patient on Blood Thinner: None 7. History of Hypertension: N 8. Opioid Therapy greater than 6 weeks: Y Opiate Contract Signed: 03/14/16 9. Risk Assessment Tool Provided: 3 low 10. Functional Assessment Tool: 11. Recreational Drug Use: Never Drug Type: Tobacco Use: Never Smoker Tobacco Type: Amount or Packs/day: How Many Years: Alcohol Use: Past use Frequency: Quant:
--- NOTE | 2019-04-26 13:41 | HPC ---
[facility] [place] [address] PAIN MANAGEMENT CONSULTATION Name: EUGENIOADALBERTO Oksana [facility] [id number] Admission: 04/20/19 ������������������ Attend Phys: Doug Jason DO Discharge: ������������������ Date of : 58 Report #: [id number] THIS REPORT FOR: //name// CC: Doug OSBORNE Physician staff DATE OF SERVICE: 04/20/2019 CHIEF COMPLAINT: Neck pain, right upper extremity pain and paresthesias, intermittent left upper extremity pain and paresthesias. HISTORY OF PRESENT ILLNESS: As you know, the patient is a very pleasant 58-year-old male who has returned today in followup visit with continued neck pain involving mainly the right upper extremity, but now intermittently on the left. He just has recently been seen by Dr. Teran in regards to surgical options and the patient is showing atrophy of the musculature and thus will need surgery eventually. Plan is for surgery in June based on current scheduling. He returns today in followup visit requesting me refill on medications. He takes OxyContin 10 mg twice a day, utilizing oxycodone up to 6 times a day in the 10/325 mg dose and utilizes Lyrica for neuropathic pain control. Overall, the patient states pain is well controlled with this medication with pain level of 4/10. Activities exacerbate symptoms; medications, rest, seated position and steroids tend to improve pain. He returns today in followup visit for refill of medications with plans to undergo surgery in late May or early June. ALLERGIES: No known drug allergies. CURRENT MEDICATIONS: Lyrica 75 mg p.o. at bedtime, Percocet 10/325 six times a day, OxyContin 10 mg b.i.d., allopurinol 100 mg once a day, omega-3 fish oil 1 tab per day. SOCIAL HISTORY: The patient denies tobacco, alcohol, IV or illicit drug use. He is unaccompanied today. IMAGING: No new imaging available. PHYSICAL EXAMINATION: VITAL SIGNS: Blood pressure 157/92, pulse 64, respiratory rate 16 and unlabored. The patient is 99% on room air. Height 5 feet 5 inches tall, weight 193 pounds and BMI calculated 32.1. GENERAL: Well-developed, well-nourished, well-hydrated 58-year-old male, appearing stated age, pain is rated today around 4/10. HEENT: Normocephalic, atraumatic. Pupils equal, round, reactive to light. [facility] [address] [place] [address] PAIN MANAGEMENT CONSULTATION Name: ADALBERTO BECKER Room #: [facility]#: [id number] Admission: 04/20/19 ������������������ Attend Phys: Doug Jason DO Discharge: ������������������ Date of : 58 Report #: [id number] EXTREMITIES: Show no clubbing, no cyanosis, no edema. MUSCULOSKELETAL: Upper extremity strength is symmetrical at 5/5, though he has some giveaway strength with abduction and internal and external rotation of the right upper extremity due to muscle weakness and pain. Decreased muscle bulk is noted in the biceps, triceps of the right when compared to left. Spurling's test positive on right. ASSESSMENT: 1. Cervical radiculopathy. 2. Cervical spondylosis with radiculopathy. 3. Displacement of a cervical intervertebral disk with radiculopathy. 4. Failed cervical spine surgery. 5. Complicated medication management utilizing scheduled medications. 6. Chronic intractable pain. PLAN: 1. The patient returns today in followup visit requesting refill on medications. He feels medications are working beneficially for pain control. The patient and I did discuss at length the recent issues with the surveying technician of OxyContin and oxycodone. They did file for bankruptcy earlier this week, which may make it difficult to receive these medications in the very near future as they will not be manufactured for a longer period. We did discuss that ultimately we will need to come off these medications given they will not be available on the market very soon. At this point, we recommend he continues the medication at current dosing assuming he can receive this level of medication. We recommend that he contact his neurosurgeon to move up his surgical option given this change in the availability of these medications. 2. We reviewed the fact that opiate medications are being used to provide analgesia adequate to support activities of daily living, not attempting to achieve a specific pain score on the 0-10 Visual Analog Scale. The current opiate medications are providing sufficient analgesia to allow the patient to participate in activities of daily living. The patient is not exhibiting any aberrant behavior suggestive of drug diversion. The patient is not having any adverse reactions to medications. The patient is not suffering from daytime somnolence or mental acuity changes. The patient is managing opiate-induced constipation with appropriate urjl-fmi-sfvuycr agents and dietary considerations. The patient was counseled on concern for caution with operating a motor vehicle while using opiate medications. A physical exam was performed and the patient's functional status was evaluated. All patients with back pain were advised against the bed rest greater than 4 days and were advised to return to normal activities. Pain score assessment was noted and the treatment plan was reviewed with the patient. All current medications, both prescribed and OTC were reviewed and reconciled on the electronic medical record. Tobacco screening was accomplished and smoking cessation was advised when indicated. BMI was noted and diet/exercise [address] [place] [address] PAIN MANAGEMENT CONSULTATION Name: ADALBERTO BECKER Room #: REG [facility].#: [id number] Admission: 04/20/19 ������������������ Attend Phys: Doug Jason DO Discharge: ������������������ Date of : 58 Report #: [id number] modification was recommended for all patients following outside normal parameters. I reviewed with the patient today their responsibilities to safeguard prescription medications, reviewed their responsibility to utilize medications only as prescribed by the physician. They are to seek and receive pain medications only from 1 physician group ( [facility]). They are to use 1 pharmacy and keep the clinic informed if they change pharmacies. Their responsibilities include making followup visits in a timely fashion and to avoid abrupt discontinuation of medication usage. Their responsibilities further include bringing their medications (bottles from the pharmacy with residual pills) to the visit for possible confirmation of pill counts and the patient understands it is their responsibility to submit to random drug screens to ensure both that the medications prescribed are present, and that no other controlled substances are present. All prescriptions provided today were generated electronically. 3. The patient was provided prescription of OxyContin 10 mg dose 1 tab p.o. b.i.d., #60, releasing today 1 month worth of medication. 4. The patient was provided prescription of oxycodone 10/325 one tab p.o. q. 4 hours p.r.n. for pain. I have given the patient #180 tablets, which is equivalent of 60 mg of oxycodone a day or 90 morphine equivalents, which is at the top dose of the CDC's recommended daily dose. We will need to wean off these medications quickly as well. 5. The patient was provided prescription of Lyrica 75 mg dose 1 tab p.o. daily, given #30 with 1 refill, 2 months' worth of medication. 6. The patient will submit to urine drug screen as part of our monitoring program. We will have the results at our next visit. 7. We have reviewed the patient's PDMP. There are no concerning entries on the [place] or [place] side. 8. We will see the patient back in followup visit in 1 month for further medication management. We have placed the patient on a 1 month return visit given the level of opioid medication he is on which is well over the recommended CDC 90 morphine equivalents places him at high risk for side effects and conditions around the medication as well as our concern that availability of this medication may not be obtainable in the very near future due to this bankruptcy filed by the surveying technician. ��������������������������������������������� <ELECTRONICALLY SIGNED> ���������������������������������������� By: Doug Jason DO ��������������������������������������������� 04/26/19 1341 [id number] [id number] Doug Jason DO /nt
== END ==
LOC: PAIN 06:56
DX: M47.22 Other spondylosis with radiculopathy, cervical region (principal); M50.10 Cervical disc disorder with radiculopathy, unspecified cervical region; G89.4 Chronic pain syndrome

== ENCOUNTER → 2019-05-24 | Outpatient (CLI) | payer BC, OTHER ==
[~2019-05-24] VITALS: Ht 167.6 cm; Wt 89.4 kg
[2019-05-24 08:08] VITALS: BP 155/93
--- NOTE | 2019-05-24 08:09 | NUR ---
Pain Clinic Assessment: 1. History of Osteoarthritis: NO History of Rheumatoid Arthritis: NO 2. Height: 5 ft. 6 in. 167.6 cm. Weight: 197.0 lb. oz. 89.359 kg. Patient's BMI: 31.8 3. Vital Signs: BP: 155/93 Pulse: 64 Resp: 14 Temp: 02 Sat: 99 ECG Mon: 4. Pain Intensity: 4 5. Fall Risk: Dizziness: N Needs help standing or walking: N Fallen in the last 3 months: N Fall risk comments: 6. Patient on Blood Thinner: None 7. History of Hypertension: N 8. Opioid Therapy greater than 6 weeks: Y Opiate Contract Signed: 03/14/16 9. Risk Assessment Tool Provided: 3 low 10. Functional Assessment Tool: 11. Recreational Drug Use: Never Drug Type: Tobacco Use: Never Smoker Tobacco Type: Amount or Packs/day: How Many Years: Alcohol Use: Past use Frequency: Quant:
--- NOTE | 2019-06-07 12:47 | HPC ---
[facility] [place] [address] [place] [address] PAIN MANAGEMENT CONSULTATION Name: ADALBERTO BECKER Oksana Room #: REG [facility].#: [id number] Admission: 05/24/19 Attend Phys: Doug Jason DO Discharge: Date of : 58 Report #: [id number] THIS REPORT FOR: //name// CC: Doug Whipple DO Physician staff DATE OF SERVICE: 05/24/2019 REFERRING PHYSICIAN: Arnie Whipple DO CHIEF COMPLAINT: Neck pain, right upper extremity pain with paresthesias. HISTORY OF PRESENT ILLNESS: As you know, the patient is a very pleasant 58-year-old male who returns today in followup visit for refill of medications. He continues to experience neck pain and mainly right upper extremity pain with paresthesias with intermittent left upper extremity symptoms that have progressed. He has plans to undergo cervical spine surgery with Dr. Milton Teran, 06/17/2019. He returns today in followup visit, reporting pain score around 4/10. States his pain is dull, aching, numbness and tingling, exacerbated with activity, improves with medications, rest, seated position and steroid injections. He returns today in followup visit for refill of medications with plans to follow up with his neurosurgeon for the surgery, 06/17/2019, and return to our clinic after being released from care post-surgery. ALLERGIES: No known drug allergies. CURRENT MEDICATIONS: Lyrica 75 mg p.o. at bedtime, Percocet 10/325 six times a day p.r.n. pain, OxyContin 10 mg b.i.d., allopurinol 100 mg once a day, omega-3 fish oil 1 tab per day. SOCIAL HISTORY: The patient denies tobacco, alcohol, IV or illicit drug use. He is working, not receiving workmen's compensation, unaccompanied today. IMAGING: No new imaging available. PHYSICAL EXAMINATION: VITAL SIGNS: Blood pressure 155/93, pulse 64, respiratory rate 14 and unlabored. The patient is 99% on room air. Height 5 feet 6 inches tall, weight 197 pounds, BMI calculated 31.8. GENERAL: Well-developed, well-nourished, well-hydrated 58-year-old male appearing stated age, pain is rated today 4/10. HEENT: Normocephalic, atraumatic. Pupils equal, round, reactive to light. EXTREMITIES: Show no clubbing, no cyanosis, and no edema. [facility] [address] [place] [address] PAIN MANAGEMENT CONSULTATION Name: ADALBERTO BECKER Room #: [facility]#: [id number] Admission: 05/24/19 Attend Phys: Doug Jason DO Discharge: Date of : 58 Report #: [id number] MUSCULOSKELETAL: Upper extremity strength remains generally 5/5, though there is some giveaway strength noted with abduction and internal and external rotation of the right upper extremity when compared to the left. Decreased muscle bulk is noted over the biceps, triceps on the right when compared to left. Spurling's test positive right. He appears to be intact to light touch from C5 through T1 dermatomes. ASSESSMENT: 1. Cervical radiculopathy. 2. Cervical spondylosis with radiculopathy. 3. Displacement of a cervical intervertebral disk with radiculopathy. 4. Failed cervical spine surgery. 5. Complicated medication management using chronic opioids. 6. Chronic intractable pain. PLAN: 1. The patient has returned today in followup visit requesting refill of medications. He has plans to undergo cervical spine surgery with Dr. Adin Teran on 06/17/2019. He needs medications to be able to reach that deadline. After the surgery, the patient will be followed by Dr. Teran for approximately 2-3 weeks until he is released from surgical care, he will then return to our clinic where we will begin adjusting medications with plans to wean off of opioids if at all possible. The patient is very amenable to this treatment plan. He returns today for refills of his medications. 2. The patient was provided prescription of OxyContin 10 mg dose 1 tab p.o. b.i.d., I have given the patient #60 tablets, no refills. 3. The patient was provided prescription of oxycodone 10/325 one tab every 6 hours p.r.n. for pain. I have given the patient #180 tablets, no refills. I did advise the patient to begin weaning off of these medications as quickly as possible, specifically 2 weeks before the surgery to reduce his post-surgical tolerance to opioids allowing for better postoperative pain control. The patient was advised to begin the titration no less than 2 weeks prior to surgery. He should reduce his reliance on the oxycodone if at all possible. 4. The patient was provided refill prescription of his Lyrica 75 mg dose 1 tab p.o. every day, #30, no refills. 5. We will see the patient back in followup visit in approximately 1-1/2 month where we will help make adjustments in medication management, hopefully being able to wean off opioids entirely over a very short period of time. The patient is excited to try to come off opioids post-surgery. <ELECTRONICALLY SIGNED> By: Doug Jason DO 06/07/19 1247 [id number] 1036 Doug Jason DO /javan
== END ==
LOC: PAIN 06:41
DX: M47.22 Other spondylosis with radiculopathy, cervical region (principal); M50.20 Other cervical disc displacement, unspecified cervical region; G89.4 Chronic pain syndrome; Z79.891 Long term (current) use of opiate analgesic

== ENCOUNTER → 2019-06-29 | Outpatient (CLI) | payer BC, OTHER ==
[~2019-06-29] VITALS: Ht 167.6 cm; Wt 89.4 kg
[2019-06-29 12:35] VITALS: BP 159/101
--- NOTE | 2019-06-29 12:38 | NUR ---
Pain Clinic Assessment: 1. History of Osteoarthritis: NECK History of Rheumatoid Arthritis: DENIES 2. Height: 5 ft. 6 in. 167.6 cm. Weight: 197.0 lb. oz. 89.359 kg. Patient's BMI: 31.8 3. Vital Signs: BP: 159/101 Pulse: 70 Resp: 14 Temp: 02 Sat: 98 ECG Mon: 4. Pain Intensity: 4 5. Fall Risk: Dizziness: N Needs help standing or walking: N Fallen in the last 3 months: N Fall risk comments: 6. Patient on Blood Thinner: None 7. History of Hypertension: N 8. Opioid Therapy greater than 6 weeks: Y Opiate Contract Signed: 03/14/16 9. Risk Assessment Tool Provided: 3 low 10. Functional Assessment Tool: 11. Recreational Drug Use: Never Drug Type: Tobacco Use: Never Smoker Tobacco Type: Amount or Packs/day: How Many Years: Alcohol Use: Past use Frequency: Quant:
--- NOTE | 2019-07-04 09:16 | HPC ---
[facility] [address] [place] [address] PAIN MANAGEMENT CONSULTATION Name: ADALBERTO BECKER [facility] [id number] Admission: 06/29/19 Attend Phys: Erica Puentes Discharge: Date of : 58 Report #: [id number] THIS REPORT FOR: //name// CC: Erica Eller Physician staff DATE OF SERVICE: 06/29/2019 CHIEF COMPLAINT: Neck pain, right upper extremity pain with paresthesias. HISTORY OF PRESENT ILLNESS: This is a very pleasant 58-year-old gentleman who returns to the pain clinic today for followup post-cervical fusion for medication management. He reports he had surgery by Dr. Adin Teran on 06/14/2019 and has been doing extremely well since this time. He feels like he has good range of motion in his right upper extremity with less numbness and tingly. He reports some significant pain in his neck post-surgery for a few days, but that has subsided. He is here today to discuss decreasing his medications. He is reporting a pain score of 4/10, again in his right arm and shoulder as well as his cervical area. He denies any problem with overmedication or constipation from his opioids. ALLERGIES: No known drug allergies. CURRENT LIST OF MEDICATIONS: Oxycodone 10/325 p.r.n., OxyContin 10 b.i.d., Lyrica 75 mg daily, allopurinol 100 mg daily, and fish oil. PQRS: 1. He has a history of osteoarthritis in his cervical spine. Denies rheumatoid arthritis. 2. Height is 5 feet 6 inches, weight is 197, BMI is 31. 3. Vital signs 159/101, pulse is 70, respirations 14, oxygen sat is 98. 4. Pain score is 4/10. 5. Denies dizziness, does not need help walking or standing, has not fallen in the last 3 months. 6. The patient is not on any blood thinners and he does not take hypertension medicines, but he is going to discuss this with his primary due to recent elevation of his blood pressure. 7. Opioid therapy is greater than 6 weeks; therefore, an opioid signed contract is on the chart. Risk assessment tool is low. Functional assessment is 1470. 8. Recreational drug use, he denies. He is not a smoker and alcohol use in the past. According to the prescription monitoring system, the patient is filling [facility] [address] [place] [address] PAIN MANAGEMENT CONSULTATION Name: ADALBERTO BECKER Room #: REG [facility] Margaret#: [id number] Admission: 06/29/19 Attend Phys: Erica Puentes Discharge: Date of : 58 Report #: [id number] appropriately. He did have a recent medication fill from Dr. Adin Teran postoperatively. He does safeguard his meds at all times. PHYSICAL EXAMINATION: GENERAL: This is alert and orientated, 58-year-old gentleman who appears his stated age, placing his pain score today at 4/10. HEENT: Normocephalic, atraumatic. Extraocular eye muscles are intact. NECK: He has a well-healed scar in his anterior portion of his neck with slight redness. MUSCULOSKELETAL: He is able to move his right extremity in all planes with no increase in pain. Still has slight decrease in muscle bulk in his bicep and tricep on his right side when compared to the left. He appears to be intact to light touch at C5 through T1. His upper extremity strength judged to be 5/5. ASSESSMENT: 1. Cervical radiculopathy. 2. Cervical spondylosis with radiculopathy. 3. Cervical fusion. 4. Displacement of cervical intervertebral disk with radiculopathy. 5. Complicated medical management under terms of chronic opioid therapy. 6. Chronic intractable pain. We reviewed the fact that opiate medications are being used to provide analgesia adequate to support activities of daily living, not attempting to achieve a specific pain score on the 0-10 Visual Analog Scale. The current opiate medications are providing sufficient analgesia to allow the patient to participate in activities of daily living. The patient is not exhibiting any aberrant behavior suggestive of drug diversion. The patient is not having any adverse reactions to medications. The patient is not suffering from daytime somnolence or mental acuity changes. The patient is managing opiate-induced constipation with appropriate dpvb-zgl-jbfxzsp agents and dietary considerations. The patient was counseled on concern for caution with operating a motor vehicle while using opiate medications. A physical exam was performed and the patient's functional status was evaluated. All patients with back pain were advised against the bed rest greater than 4 days and were advised to return to normal activities. Pain score assessment was noted and the treatment plan was reviewed with the patient. All current medications, both prescribed and OTC were reviewed and reconciled on the electronic medical record. Tobacco screening was accomplished and smoking cessation was advised when indicated. BMI was noted and diet/exercise modification was recommended for all patients following outside normal parameters. I reviewed with the patient today their responsibilities to safeguard prescription medications, reviewed their responsibility to utilize medications [address] [address] PAIN MANAGEMENT CONSULTATION Name: ADALBERTO BECKER Room #: [facility] [id number] Admission: 06/29/19 Attend Phys: Erica Puentes Discharge: Date of : 58 Report #: [id number] only as prescribed by the physician. They are to seek and receive pain medications only from 1 physician group ( [facility]). They are to use 1 pharmacy and keep the clinic informed if they change pharmacies. Their responsibilities include making followup visits in a timely fashion and to avoid abrupt discontinuation of medication usage. Their responsibilities further include bringing their medications (bottles from the pharmacy with residual pills) to the visit for possible confirmation of pill counts and the patient understands it is their responsibility to submit to random drug screens to ensure both that the medications prescribed are present, and that no other controlled substances are present. All prescriptions provided today were generated electronically. PLAN: 1. We discussed treatment options with the patient today. The patient feels that he is doing quite well since his recent cervical fusion. He is here today to discuss possible decreasing of his opioids. He has currently decreased his OxyContin taking 1 tablet of 10 mg a day and taking 6 oxycodone 10 mg pills daily. We will taper him slowly to prevent any withdrawal symptoms and have given him a written profile of these instructions. He is to stop his OxyContin today. Continue his OxyIR 10 mg 6 a day for 1 week. The patient has these prescriptions at home. 2. The patient will then refill oxycodone 10/325 taking 5 tablets a day for 2 weeks, then decrease to 4 tablets a day for 2 weeks. Scripts given for #130 of these medications for his second month. He will continue to decrease his oxycodone to 3 tablets a day, #90 pills set electronically to his pharmacist. 3. We will continue him on his Lyrica 75 mg at bedtime, #30 with one additional refill sent electronically as well. 4. The patient instructed to call if he has any problems with this weaning schedule. He has increased pain or suffers any withdrawal type symptoms. The patient verbalizes understanding. He feels like he will be able to decrease his medications without difficulty. 5. We encouraged the patient to see his primary care doctor regarding his elevated blood pressure. 6. The patient is seen in collaboration with Dr. Doug Jason today. <ELECTRONICALLY SIGNED> By: Erica Puentes 07/04/19 0916 1328 1435 Erica Puentes /nt
== END ==
LOC: PAIN 06:51
DX: M47.22 Other spondylosis with radiculopathy, cervical region (principal); M50.10 Cervical disc disorder with radiculopathy, unspecified cervical region; M43.22 Fusion of spine, cervical region; M79.631 Pain in right forearm; Z79.891 Long term (current) use of opiate analgesic

== ENCOUNTER → 2019-09-13 | Outpatient (CLI) | payer BC, OTHER ==
[~2019-09-13] VITALS: Ht 167.6 cm; Wt 89.7 kg
[2019-09-13 10:12] VITALS: BP 139/82
--- NOTE | 2019-09-13 10:24 | NUR ---
Pain Clinic Assessment: 1. History of Osteoarthritis: NECK History of Rheumatoid Arthritis: DENIES 2. Height: 5 ft. 6 in. 167.6 cm. Weight: 197.8 lb. oz. 89.722 kg. Patient's BMI: 31.9 3. Vital Signs: BP: 139/82 Pulse: 70 Resp: 16 Temp: 02 Sat: 97 ECG Mon: 4. Pain Intensity: 4 5. Fall Risk: Dizziness: N Needs help standing or walking: N Fallen in the last 3 months: N Fall risk comments: 1 6. Patient on Blood Thinner: None 7. History of Hypertension: N 8. Opioid Therapy greater than 6 weeks: Y Opiate Contract Signed: 03/14/16 9. Risk Assessment Tool Provided: 3 low 10. Functional Assessment Tool: 11. Recreational Drug Use: Never Drug Type: Tobacco Use: Never Smoker Tobacco Type: Amount or Packs/day: How Many Years: Alcohol Use: Past use Frequency: Quant:
--- NOTE | 2019-09-14 08:32 | HPC ---
[facility] [place] [address] PAIN MANAGEMENT CONSULTATION Name: ADALBERTO BECKER Room #: REG [facility].#: [id number] Admission: 09/13/19 Attend Phys: Erica Puentes Discharge: Date of : 58 Report #: [id number] THIS REPORT FOR: cc: JEFFERY OSBORNE Physician not on staff Erica Puentes THIS REPORT FOR: //name// CC: Erica OSBORNE Physician staff DATE OF SERVICE: 09/13/2019 CHIEF COMPLAINT: Neck pain, right upper extremity pain and paresthesias. HISTORY OF PRESENT ILLNESS: This is a very pleasant 58-year-old gentleman who returns to the pain clinic today for refill of his medication and discussion about his neuropathic pain pills. He feels that he is slowly getting better since his cervical fusion in June, but his work duties have significantly increased, which is causing him to have more pain while he is at work. He feels that he tried to decrease his medicine too quickly as well as return to work after his surgery. He believes this is all playing a part in why he has continued to having some increased pain. He is here today to discuss increasing his Lyrica to 2 tablets a day as well as continuing on his oxycodone 5 pills a day for 1 more month and then decreasing to 4 tablets. He reports he is having neck pain greater on the left than the right, which is opposite of his original pain. He feels that his arm pain has significantly decreased. His pain is increased with activity, but the medicines are very beneficial. 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 ALLERGIES: No known drug allergies. CURRENT LIST OF MEDICATIONS: Oxycodone 10/325 p.r.n., Lyrica 75 mg, allopurinol 100 mg daily and fish oil. PQRS: 1. 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 Denies any rheumatoid arthritis. 2. Height is 5 feet 6 inches, weight is 197, BMI is 31. 3. Vital signs 139/82, pulse is 70, respirations 16, oxygen sat is 97. 4. Pain score is 4/10. 5. Denies dizziness, does not need help walking or standing, [place] [address] PAIN MANAGEMENT CONSULTATION Name: ADALBERTO BECKER Room #: [facility]#: [id number] Admission: 09/13/19 Attend Phys: Erica Puentes Discharge: Date of : 58 Report #: [id number] the last 3 months. 6. The patient is not on any blood thinners or medicine for hypertension. 7. Opioid therapy is greater than 6 weeks; therefore, an opioid signed contract is on the chart. Risk assessment tool is low. Functional assessment is 14/70. 8. Recreational drug use, he denies. He is not a smoker and does not drink alcohol. According to the prescription monitoring system, the patient is filling appropriately for his medications. He is out of his medications today, though due to having to take a slightly increased amount of his opioids in the last few weeks. His current morphine mEq is 75, at 5 a day, which we will continue him on for 1 more month, then decreasing to 4, which will have him at 60 morphine milliequivalents per day. The patient is seen in our clinic every 2 months. PHYSICAL EXAMINATION: GENERAL: This is alert and orientated 58-year-old gentleman who appears his stated age, placing his current pain score at 4/10. HEENT: Normocephalic, atraumatic. Extraocular eye muscles are intact. NECK: He has a well-healed scar in the anterior portion of his neck and pain on his posterior musculature of his neck, is tender. The patient is able to move his neck without difficulty in all range of motion main. MUSCULOSKELETAL: The patient appears to have upper extremity strength judged to be 5/5 and appears intact for light touch from C5 through T1. ASSESSMENT: 1. Cervical radiculopathy. 2. Cervical spondylosis with radiculopathy. 3. Cervical fusion. 4. Chronic intractable pain. 5. Displacement of cervical intervertebral disk with radiculopathy. 6. Complex medical management under terms of written opioid agreement. PLAN: 1. We discussed treatment options with the patient today. The patient continues to have difficulty decreasing his medications as quickly as he was hopeful to. He reports he is having increased workload and stresses at work, which have been requiring him to be more active throughout his day in order to perform his job. He has been taking 5 tablets of his oxycodone a day. He is requesting to continue this for 1 more month. He believes he will be able to decrease to 4 after that time. I discussed this with Dr. Doug Jason, we are agreeable to continue his oxycodone 10/325 five a day for the first month and then decrease to 120 pills in the 4-week release. 2. We did increase his Lyrica 75 mg to take 2 tablets either both at bedtime or one after he comes home from work and then take the other prior to bedtime. We will send these electronically for 60 with 1 additional refill. 3. The patient will continue to try to decrease his medicine as able. We will [facility] [address] [place] [address] PAIN MANAGEMENT CONSULTATION Name: ADALBERTO BECKER [id number] Admission: 09/13/19 Attend Phys: Erica Puentes Discharge: Date of : 58 Report #: [id number] discuss further decreasing at his next visit in 2 months. The patient is seen today in collaboration with Dr. Doug Jason. <ELECTRONICALLY SIGNED> By: Erica Puentes 09/14/19 0832 [id number] 1220 Erica Puentes /nt
== END ==
LOC: PAIN 06:51
DX: M47.22 Other spondylosis with radiculopathy, cervical region (principal); M50.10 Cervical disc disorder with radiculopathy, unspecified cervical region; M43.22 Fusion of spine, cervical region; Z79.899 Other long term (current) drug therapy

== ENCOUNTER → 2019-11-01 | Outpatient (CLI) | payer BC, OTHER ==
[~2019-11-01] VITALS: Ht 167.6 cm; Wt 91.1 kg
[~2019-11-01] MED LIST changes: +MOBIC7.5 MG PO
[2019-11-01 08:27] VITALS: BP 157/92
--- NOTE | 2019-11-01 08:55 | NUR ---
Pain Clinic Assessment: 1. History of Osteoarthritis: NECK History of Rheumatoid Arthritis: DENIES 2. Height: 5 ft. 6 in. 167.6 cm. Weight: 200.8 lb. oz. 91.082 kg. Patient's BMI: 32.4 3. Vital Signs: BP: 157/92 Pulse: 75 Resp: 16 Temp: 02 Sat: 100 ECG Mon: 4. Pain Intensity: 6-7 5. Fall Risk: Dizziness: N Needs help standing or walking: N Fallen in the last 3 months: N Fall risk comments: 1 6. Patient on Blood Thinner: None 7. History of Hypertension: N 8. Opioid Therapy greater than 6 weeks: Y Opiate Contract Signed: 03/14/16 9. Risk Assessment Tool Provided: 3 low 10. Functional Assessment Tool: 11. Recreational Drug Use: Never Drug Type: Tobacco Use: Never Smoker Tobacco Type: Amount or Packs/day: How Many Years: Alcohol Use: Past use Frequency: Quant:
--- NOTE | 2019-11-02 15:38 | HPC ---
[facility] [address] [place] [address] PAIN MANAGEMENT CONSULTATION Name: ADALBERTO BECKER Room #: REG [facility]#: [id number] Admission: 11/01/19 Attend Phys: Erica Puentes Discharge: Date of : 58 Report #: [id number] THIS REPORT FOR: cc: JEFFERY OSBORNE Physician not on staff Erica Puentes ~ DATE OF SERVICE: 11/01/2019 CHIEF COMPLAINT: Neck pain, right upper extremity pain and paresthesias. HISTORY OF PRESENT ILLNESS: This is a very pleasant 59-year-old gentleman who returns to the pain clinic today for followup for his medication management. He had a cervical fusion by Dr. Adin Teran in June. He continues to try to wean down on his medications, though he has been having significant muscle tightness and deep aching feeling in his cervical spine that radiates into his right trapezius, right shoulder. 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 At times in the past month, he had days that he took 6 pain pills. Other days, he was able to get by with 4. He is here to discuss medication options as well as other therapies that may be beneficial in helping reduce some of his pain. Today, he is reporting his pain score is 6-7. Again, it does increase with activity, but medications, resting and not moving, he feels have been beneficial. Today, he is sitting in a very guarded position in his chair. ALLERGIES: No known drug allergies. CURRENT LIST OF MEDICATIONS: Oxycodone 10/325 up to 5 times a day, allopurinol and fish oil. PATIENT'S PQRS: 1. He has arthritic changes in his neck. Denies any rheumatoid arthritis. 2. Height is 5 feet 6 inches, weight is 200, BMI is 32. 3. Vital signs 157/92, pulse is 75, respirations 16, oxygen sat is 100. 4. Pain score is 6-7. 5. Denies dizziness, does not need help walking or standing, has not fallen in the last 3 months. 6. The patient is not on any blood thinners or medicine for hypertension. 7. Opioid therapy is greater than 6 weeks; therefore, an opioid signed contract is on the chart. Risk assessment tool is low. Functional assessment is 14 of 70. 8. Recreational drug use, he denies. He is not a smoker and does not drink alcohol. According to the prescription monitoring system, the patient's last fill was [address] [address] PAIN MANAGEMENT CONSULTATION Name: ADABLERTO BECKER Room #: REG [facility] Margaret#: [id number] Admission: 11/01/19 Attend Phys: Erica Puentes Discharge: Date of : 58 Report #: [id number] 10/10, so he is early today for his medication refill, but he has been taking more than prescribed this past month due to activity. According to the CDC guidelines, his morphine mEq is 60-75 MMEs per day. PHYSICAL EXAMINATION: GENERAL: This is alert and orientated 59-year-old gentleman who returns to the pain clinic who appears his stated age, placing his current pain score at 6-7. HEENT: Normocephalic, atraumatic. Extraocular eye muscles are intact. NECK: He has a well-healed anterior scar. Pain is in his trapezius muscles, greater on the right than the left, radiates to his shoulder, very tender sitting in a guarded position. He is able to move his neck in all ranges of field with increase in pain. MUSCULOSKELETAL: The patient appears to have upper extremity strength judged to be 5/5 and appears to be intact for light touch from C5-T1. ASSESSMENT: 1. Cervical radiculopathy. 2. Cervical spondylosis with radiculopathy. 3. Cervical fusion. 4. Myofascial pain. 5. Intractable chronic pain. 6. Complex medical management under terms of written opioid agreement. We reviewed the fact that opiate medications are being used to provide analgesia adequate to support activities of daily living, not attempting to achieve a specific pain score on the 0-10 Visual Analog Scale. The current opiate medications are providing sufficient analgesia to allow the patient to participate in activities of daily living. The patient is not exhibiting any aberrant behavior suggestive of drug diversion. The patient is not having any adverse reactions to medications. The patient is not suffering from daytime somnolence or mental acuity changes. The patient is managing opiate-induced constipation with appropriate jkam-abq-jlncbvh agents and dietary considerations. The patient was counseled on concern for caution with operating a motor vehicle while using opiate medications. PLAN: 1. We discussed treatment options for greater than 30 minutes today. The patient understands the need to decrease his medications, but still is struggling with increased pain. At times in the past month, he has had to take 6 pills a day, but he understands our goal is to try and get to 4 a day at least. The patient is willing to try that if we give him other modalities to help with his pain control. 2. We discussed physical therapy as well as acupuncture. His muscles are very tight and he is sitting in a guarded position. I believe if he seeks physical therapy, therapeutic massage, myofascial release, TENS unit and possibly acupuncture, these may be beneficial in reducing some of that inflamed tissue. [facility] [address] [place] [address] PAIN MANAGEMENT CONSULTATION Name: ADALBERTO BECKER [facility] #: [facility] [id number] Admission: 11/01/19 Attend Phys: Erica Puentes Discharge: Date of : 58 Report #: [id number] I encouraged him to move his neck as much as possible and not have it so stiffed. We will send him to [facility] as well as [facility], chiropractic for acupuncture therapy to help relieve some of his myofascial pain. 3. We will start him on an anti-inflammatory to see if that can help reduce some of his inflammation that he may be experiencing in his neck and decrease some of his pain, meloxicam 7.5 mg b.i.d. prescription for 30 with 1 additional refill given. The patient told about the risk of side effects of GI complications with this medicine and to take this medicine with food. 4. We discussed his opioid use in great detail. Our overall goal is to decrease him to under 50 MME. The first month, we will allow him up to 5 a day. I encouraged the patient to try to take 4 a day and on a significant bad day, he may increase to 5 or even taking half a pill. Then, the second month, we will decrease him to 4 times a day of his Percocet 10/325. The scripts were sent electronically by Dr. Doug Jason. 5. The patient has weaned off his Lyrica. He is not having any burning, numbness, tingly pain since his surgery. He reported that medicine did cause him to feel foggy and sleepy. 6. The patient will return in 2 months. I also encouraged him to follow up with Dr. Adin Teran for a postoperative visit. It has been 6 months since his surgery. 7. The patient is seen in collaboration today with Dr. Doug Jason. <ELECTRONICALLY SIGNED> By: Erica Puentes 11/02/19 1538 [id number] 1231 Erica Puentes /nt
== END ==
LOC: PAIN 06:41
DX: M47.22 Other spondylosis with radiculopathy, cervical region (principal); M43.22 Fusion of spine, cervical region; G89.29 Other chronic pain; F11.20 Opioid dependence, uncomplicated; M79.641 Pain in right hand; Z79.84 Long term (current) use of oral hypoglycemic drugs; Z79.899 Other long term (current) drug therapy

== ENCOUNTER → 2019-12-20 | Outpatient (CLI) | payer BC, OTHER ==
[~2019-12-20] VITALS: Ht 167.6 cm; Wt 93.2 kg
[2019-12-20 08:00] VITALS: BP 148/99
--- NOTE | 2019-12-20 08:10 | NUR ---
Pain Clinic Assessment: 1. History of Osteoarthritis: NECK History of Rheumatoid Arthritis: DENIES 2. Height: 5 ft. 6 in. 167.6 cm. Weight: 205.4 lb. oz. 93.169 kg. Patient's BMI: 33.2 3. Vital Signs: BP: 148/99 Pulse: 62 Resp: 18 Temp: 02 Sat: 99 ECG Mon: 4. Pain Intensity: 4-6 5. Fall Risk: Dizziness: N Needs help standing or walking: N Fallen in the last 3 months: N Fall risk comments: 1 6. Patient on Blood Thinner: None 7. History of Hypertension: N 8. Opioid Therapy greater than 6 weeks: Y Opiate Contract Signed: 03/14/16 9. Risk Assessment Tool Provided: 3 low 10. Functional Assessment Tool: 11. Recreational Drug Use: Never Drug Type: Tobacco Use: Never Smoker Tobacco Type: Amount or Packs/day: How Many Years: Alcohol Use: Past use Frequency: Quant:
--- NOTE | 2019-12-20 10:24 | HPC ---
[facility] [address] [address] PAIN MANAGEMENT CONSULTATION Name: ADALBERTO BECKER Room #: REG [facility]#: [id number] Admission: 12/20/19 Attend Phys: Erica Puentes Discharge: Date of : 58 Report #: [id number] THIS REPORT FOR: cc: JEFFERY OSBORNE Physician not on staff Erica Puentes ~ CC: Doug Jason DO DATE OF SERVICE: 12/20/2019 CHIEF COMPLAINT: Neck pain, right upper extremity pain and paresthesias. HISTORY OF PRESENT ILLNESS: As you know, this is a very pleasant 59-year-old gentleman who returns to the pain clinic today for refill of his opioid medications. He continued to have ongoing neck and shoulder discomfort that radiates into his arms. We have been slowly decreasing his medications. He reports today that he feels that he is on a good regimen currently rating his pain score at 4-6 depending on the time of day. He believes that the muscles in his neck are not as tight as they were at his last visit. He has had some massage, though he has been unable to have acupuncture. Due to the COVID-19 outbreak they are not open, but is still looking at that option as well. He is taking 4 tablets of oxycodone a day and has been taking Lyrica at bedtime. He finds this regimen beneficial, stating his pain is a constant, deep ache, worse with any activity and in the morning, but he feels that his medication and resting improve his pain. Today, he would like refills, a slight early refill due to going out of town to see his father over the holiday weekend. ALLERGIES: No known drug allergies. CURRENT LIST OF MEDICATIONS: Meloxicam 7.5 b.i.d., oxycodone 10/325 p.r.n., allopurinol, fish oil, and Lyrica 75 mg. PQRS: 1. He has arthritic changes in his neck. Denies any rheumatoid arthritis. 2. Height is 5 feet 6 inches, weight is 205, BMI is 33. 3. Vital signs; blood pressure 148/99, pulse is 62, respirations 18, oxygen sat is 99. Pain score is 4-6. 4. Fall risk. Denies dizziness, does not need help walking or standing, has not fallen in the last 3 months. The patient is not on any blood thinners or medicine for hypertension. His opioid therapy is greater than 6 weeks; therefore, an opioid signed contract on the chart. Risk assessment tool is low. Functional assessment is 14/70. 5. Recreational drug use, he denies. He is not a smoker and does not drink alcohol. [address] [address] PAIN MANAGEMENT CONSULTATION Name: ADALBERTO BECKER Room #: REG [facility]#: [id number] Admission: 12/20/19 Attend Phys: Erica Puentes Discharge: Date of : 58 Report #: [id number] According to the prescription monitoring system, the patient is filling appropriately. He is due to fill on the , but is requesting an early refill for Thursday the due to the holiday weekend and going out of town. His current morphine mEq according to the CDC guidelines is 60 MME per day. PHYSICAL EXAMINATION: GENERAL: This is alert and orientated 59-year-old gentleman who appears his stated age, placing his current pain score from 4-6. HEENT: Normocephalic, atraumatic. Extraocular eye muscles are intact. He is wearing a mask. NECK: He has a well-healed anterior scar. Tightness in his trapezius muscle is present. Slight atrophy of the upper trapezius musculature on right , but he is able to move his neck in all ranges with limited movement due to his surgical changes. MUSCULOSKELETAL: The patient upper extremity strength judged to be 5/5 in all major muscle groups and he is intact from C5-T1. ASSESSMENT: 1. Cervical radiculopathy. 2. Cervical spondylosis with radiculopathy. 3. Cervical fusion. 4. Myofascial pain. 5. Intractable chronic pain. 6. Complex medical management under terms of written opioid agreement. We reviewed the fact that opiate medications are being used to provide analgesia adequate to support activities of daily living, not attempting to achieve a specific pain score on the 0-10 Visual Analog Scale. The current opiate medications are providing sufficient analgesia to allow the patient to participate in activities of daily living. The patient is not exhibiting any aberrant behavior suggestive of drug diversion. The patient is not having any adverse reactions to medications. The patient is not suffering from daytime somnolence or mental acuity changes. The patient is managing opiate-induced constipation with appropriate wcxg-gqe-fxuwqwg agents and dietary considerations. The patient was counseled on concern for caution with operating a motor vehicle while using opiate medications. PLAN: 1. We discussed treatment options with the patient today. The patient feels that he is able to tolerate his current pain regimen, rating his pain slightly less than he had in previous visits, would like to continue his oxycodone 10/325 four times a day and Lyrica 75 mg 1-2 tablets at night. We will send these medications electronically by Dr. Doug Jason for his oxycodone to be released on 12/23/2019 and 01/26/2020 due to a vacation fill for the first month and Lyrica will be sent for 2 months. [facility] [address] [place] [address] PAIN MANAGEMENT CONSULTATION Name: ADALBERTO BECKER Room #: REG [facility] Margaret#: [id number] Admission: 12/20/19 Attend Phys: Erica Puentes Discharge: Date of : 58 Report #: [id number] 2. 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 The patient verbalizes understanding. He will try to make an appointment when the COVID virus has subsided and he is able to make appointments. 3. The patient is seen in collaboration with Dr. Doug Jason. <ELECTRONICALLY SIGNED> By: Erica Puentes 12/20/19 [id number] Erica Puentes /javan
== END ==
LOC: PAIN 06:46
DX: R20.2 Paresthesia of skin (principal); M79.621 Pain in right upper arm; M47.22 Other spondylosis with radiculopathy, cervical region; G89.29 Other chronic pain; F11.20 Opioid dependence, uncomplicated; Z98.1 Arthrodesis status; Z79.899 Other long term (current) drug therapy

== ENCOUNTER → 2020-02-14 | Outpatient (CLI) | payer BC, OTHER ==
[~2020-02-14] VITALS: Ht 167.6 cm; Wt 90.4 kg
[2020-02-14 08:18] VITALS: BP 123/85
--- NOTE | 2020-02-14 08:34 | NUR ---
Pain Clinic Assessment: 1. History of Osteoarthritis: NECK History of Rheumatoid Arthritis: DENIES 2. Height: 5 ft. 6 in. 167.6 cm. Weight: 199.2 lb. oz. 90.357 kg. Patient's BMI: 32.2 3. Vital Signs: BP: 123/85 Pulse: 67 Resp: 16 Temp: 02 Sat: 100 ECG Mon: 4. Pain Intensity: 6 5. Fall Risk: Dizziness: N Needs help standing or walking: N Fallen in the last 3 months: N Fall risk comments: 1 6. Patient on Blood Thinner: None 7. History of Hypertension: N 8. Opioid Therapy greater than 6 weeks: Y Opiate Contract Signed: 03/14/16 9. Risk Assessment Tool Provided: 3 low 10. Functional Assessment Tool: 11. Recreational Drug Use: Never Drug Type: Tobacco Use: Never Smoker Tobacco Type: Amount or Packs/day: How Many Years: Alcohol Use: Past use Frequency: Quant:
--- NOTE | 2020-02-15 09:16 | HPC ---
[facility] [place] [address] [address] PAIN MANAGEMENT CONSULTATION Name: ADALBERTO BECKER Room #: REG [facility]#: [id number] Admission: 02/14/20 Attend Phys: Erica Puentes Discharge: Date of : 58 Report #: [id number] THIS REPORT FOR: cc: JEFFERY OSBORNE Physician not on staff Erica Puentes ~ CC: SHAHZAD DOMINIQUE DO DATE OF SERVICE: 02/14/2020 CHIEF COMPLAINT: Neck pain, right upper extremity pain and paresthesias. HISTORY OF PRESENT ILLNESS: This is a 59-year-old gentleman who returns to the pain clinic today for refill of his medications that he feels are beneficial in relieving some of his neck and right arm pain. Today, he is reporting some ongoing numbness and tingling in his right upper extremity that does radiate into his hand, stating his pain is a constant ache at 6/10, worse with any activity and turning his head. He feels the medication as well as resting and sitting or repositioning are beneficial. He denies problems with constipation or daytime somnolence as a result of his opioid medications. Today, he is requesting refills. ALLERGIES: No known drug allergies. CURRENT LIST OF MEDICATIONS: Lyrica 75 mg twice a day, Percocet 10/325 b.i.d., allopurinol, fish oil, and meloxicam. PQRS: 1. He has arthritic changes in his neck. Denies any rheumatoid arthritis. 2. Height is 5 feet 6 inches, weight is 199, BMI is 32. 3. Vital signs 123/85, pulse is 67, respirations 16, oxygen sat is 100. 4. Pain score 6-10. 5. Denies dizziness, does not need help walking or standing, has not fallen in the last 3 months. 6. The patient is not on any blood thinners or medicine for hypertension. 7. Opioid therapy is greater than 6 weeks; therefore, an opioid signed contract is on the chart. Risk assessment tool is low. Functional assessment is . 8. Recreational drug use, he denies. He is not a smoker and does not drink alcohol. According to the prescription monitoring system, the patient is due to fill his medications next week, filling them in a timely fashion. His morphine mEq is 60 MME per day. PHYSICAL EXAMINATION: GENERAL: This is an alert and orientated, well-developed, well-nourished, [address] [address] PAIN MANAGEMENT CONSULTATION Name: ADALBERTO BECKER [id number] Admission: 02/14/20 Attend Phys: Erica Puentes Discharge: Date of : 58 Report #: [id number] well-hydrated 59-year-old gentleman who appears his stated age, placing his current pain score at 6/10. HEENT: Normocephalic, atraumatic. Extraocular eye muscles are intact. Wearing a mask. NECK: He has a well-healed cervical scar. He has tightness in his trapezius muscle on the right side with slight atrophy as well. Numbness and tingly located following the C6 through C8 dermatomal distribution. MUSCULOSKELETAL: Upper extremity strength is symmetrical at 5/5 with good sensation from C5 to T1. ASSESSMENT: 1. Cervical radiculopathy. 2. Cervical spondylosis with radiculopathy. 3. Cervical fusion. 4. Myofascial pain. 5. Chronic intractable pain. 6. Complex medical management under terms of written opioid agreement. We reviewed the fact that opiate medications are being used to provide analgesia adequate to support activities of daily living, not attempting to achieve a specific pain score on the 0-10 Visual Analog Scale. The current opiate medications are providing sufficient analgesia to allow the patient to participate in activities of daily living. The patient is not exhibiting any aberrant behavior suggestive of drug diversion. The patient is not having any adverse reactions to medications. The patient is not suffering from daytime somnolence or mental acuity changes. The patient is managing opiate-induced constipation with appropriate fbey-mdt-zdtnpbo agents and dietary considerations. The patient was counseled on concern for caution with operating a motor vehicle while using opiate medications. PLAN: 1. We discussed treatment options with the patient today. The patient finds that his current regimen of 4 oxycodone a day is beneficial, taking Lyrica in the late evening and then in the middle of the night. He does have some daytime sleepiness in the morning, but feels that this medication has been beneficial as well. Today, we will have Dr. Shahzad Dominique send electronically his oxycodone 10/325, #120 for release in 1-week and 5 weeks as well as his Lyrica 75 mg b.i.d., #60 with one refill. 2. We discussed his meloxicam. The patient had taken it for 1 month, then did discontinue it. He cannot remember if it was beneficial or not or caused any stomach upset. We will refill this 7.5 b.i.d., #60 with 1 refill and instructed the patient to take it in the morning with breakfast and at dinner for at least 1 week, then decrease to daily to see if it is beneficial in decreasing some of inflammation that he is experiencing in his neck. 3. We did discuss a possible cervical epidural steroid injection by Dr. Shahzad Dominique if his numbness continues in his right arm or [facility] [address] [place] [address] PAIN MANAGEMENT CONSULTATION Name: EUGENIOADALBERTO JACKSON Room #: [facility] Margaret#: [id number] Admission: 02/14/20 Attend Phys: Erica Puentes Discharge: Date of : 58 Report #: [id number] Jeffry for an evaluation. 4. The patient is seen in collaboration with Dr. Shahzad Dominique today. The patient will return in 2 months. <ELECTRONICALLY SIGNED> By: Erica Puentes 02/15/20 0916 [id number] Erica Puentes /nt
== END ==
LOC: PAIN 06:49
PROVIDERS: ATTEND Clinical Nurse Specialist Adult Health
DX: M47.22 Other spondylosis with radiculopathy, cervical region (principal); M54.2 Cervicalgia; M79.621 Pain in right upper arm; R20.2 Paresthesia of skin; M43.22 Fusion of spine, cervical region; M79.18 Myalgia, other site; G89.29 Other chronic pain; I10 Essential (primary) hypertension; F11.90 Opioid use, unspecified, uncomplicated

== ENCOUNTER → 2020-04-17 | Outpatient (CLI) | payer BC, OTHER ==
[~2020-04-17] VITALS: Ht 167.6 cm; Wt 89.6 kg
[2020-04-17 08:05] VITALS: BP 152/84
--- NOTE | 2020-04-17 08:09 | NUR ---
Pain Clinic Assessment: 1. History of Osteoarthritis: NECK History of Rheumatoid Arthritis: DENIES 2. Height: 5 ft. 6 in. 167.6 cm. Weight: 197.6 lb. oz. 89.631 kg. Patient's BMI: 31.9 3. Vital Signs: BP: 152/84 Pulse: 69 Resp: 14 Temp: 02 Sat: 99 ECG Mon: 4. Pain Intensity: 4 5. Fall Risk: Dizziness: N Needs help standing or walking: N Fallen in the last 3 months: N Fall risk comments: 1 6. Patient on Blood Thinner: None 7. History of Hypertension: N 8. Opioid Therapy greater than 6 weeks: Y Opiate Contract Signed: 03/14/16 9. Risk Assessment Tool Provided: 3 low 10. Functional Assessment Tool: 11. Recreational Drug Use: Never Drug Type: Tobacco Use: Never Smoker Tobacco Type: Amount or Packs/day: How Many Years: Alcohol Use: Past use Frequency: Quant:
--- NOTE | 2020-04-17 13:20 | HPC ---
[facility] [place] [address] [place] [address] PAIN MANAGEMENT CONSULTATION Name: ADALBERTO BECKER Room #: REG [facility]#: [id number] Admission: 04/17/20 Attend Phys: Erica Puentes Discharge: Date of : 58 Report #: [id number] THIS REPORT FOR: cc: JEFFERY OSBORNE Physician not on staff Erica Puentes ~ CC: Doug Jason DO DATE OF SERVICE: 04/17/2020 CHIEF COMPLAINT: Neck pain, right upper extremity pain, and paresthesias. HISTORY OF PRESENT ILLNESS: This is a very pleasant 59-year-old gentleman, who returns to the pain clinic today for a refill of his medications. He reports that he is doing quite well on his current pain regimen, rating his pain score of 4/10 today, stating it is mostly in his neck and bilateral arms. It is an aching, constant discomfort that is worse with activity. He feels though that the current regimen has been beneficial. He is able to sleep at night and that is helpful as well. 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 Today, he is requesting refills of his oxycodone. ALLERGIES: No known drug allergies. CURRENT LIST OF MEDICATIONS: Lyrica 75 mg b.i.d., oxycodone 10/325 p.r.n., meloxicam p.r.n., allopurinol, and fish oil. PATIENT'S PQRS: 1. He has arthritic changes in his neck. Denies any rheumatoid arthritis. 2. Height is 5 feet 6 inches, weight is 197, BMI is 31. Vital signs 152/84, pulse is 69, respirations 14, oxygen sat is 99. Pain score is 4/10. 3. Denies dizziness, does not need help walking or standing, has not fallen in the last 3 months. The patient is not on any blood thinners or medicine for hypertension, though his blood pressure has been elevated again today. 4. Opioid therapy is greater than 6 weeks; therefore, an opioid signed contract is on the chart. Risk assessment is low. Functional assessment is 40/70. 5. Recreational drug use, he denies. He is not a smoker and does not drink alcohol. According to the prescription monitoring system, the patient is filling appropriately for his medications in a timely fashion. He is due to fill his medications this week. His morphine milliequivalent according to the CDC guidelines is 60 MME. PHYSICAL EXAMINATION: [address] [address] PAIN MANAGEMENT CONSULTATION Name: EUGENIOADALBERTO Oksana Room #: REG [facility] Robles#: [id number] Admission: 04/17/20 Attend Phys: Erica Puentes Discharge: Date of : 58 Report #: [id number] GENERAL: This is a well-developed, well-nourished, alert and orientated 59-year-old gentleman who appears his stated age, placing his current pain score at 4/10. HEENT: Normocephalic, atraumatic. Extraocular eye muscles are intact. Sclerae are nonintrinsic. He is wearing a mask. NECK: He has tenderness in his cervical region that does radiate into the C6-C8 dermatomal distribution. He has well-healed scars in his cervical area. MUSCULOSKELETAL: His upper extremity strength judged to be 5/5 with good sensation from C5-T1. ASSESSMENT: 1. Cervical radiculopathy. 2. Cervical spondylosis with radiculopathy. 3. Cervical fusion. 4. Myofascial pain. 5. Chronic intractable pain. 6. Complex medical management under terms of written opioid agreement. PLAN: 1. We discussed treatment options with the patient today. He finds the current regimen of 4 oxycodone 10/325 beneficial in controlling his pain. We will have Dr. Doug Jason send scripts for today and 4 weeks supply electronically for refills of this medication. We reviewed the fact that opiate medications are being used to provide analgesia adequate to support activities of daily living, not attempting to achieve a specific pain score on the 0-10 Visual Analog Scale. The current opiate medications are providing sufficient analgesia to allow the patient to participate in activities of daily living. The patient is not exhibiting any aberrant behavior suggestive of drug diversion. The patient is not having any adverse reactions to medications. The patient is not suffering from daytime somnolence or mental acuity changes. The patient is managing opiate-induced constipation with appropriate wiqz-sns-rzijxfp agents and dietary considerations. The patient was counseled on concern for caution with operating a motor vehicle while using opiate medications. 2. The patient encouraged to take his meloxicam when his pain is increased, especially if he notices increase in the weather that causes discomfort in his neck. He states occasionally he also has some knee pain that he notices with weather changes. He will try to remember to take the meloxicam during those times. 3. We did discuss his blood pressure, which was elevated at 152/84 and has been elevated in the past few times. His primary care doctor has been suggesting starting on a low-dose antihypertensive. Patient reports he may have to consider doing that since it remains slightly elevated. [address] [place] [address] PAIN MANAGEMENT CONSULTATION Name: ADALBERTO BECKER Room #: [facility] Margaret#: [id number] Admission: 04/17/20 Attend Phys: Erica Puentes Discharge: Date of : 58 Report #: [id number] 4. The patient is seen in collaboration with Dr. Doug Jason. He will return in 2 months. <ELECTRONICALLY SIGNED> By: Erica Puentes 04/17/20 1320 [id number] [id number] Erica Puentes /nt
== END ==
LOC: PAIN 06:39
PROVIDERS: ATTEND Clinical Nurse Specialist Adult Health
DX: M47.22 Other spondylosis with radiculopathy, cervical region (principal); M79.641 Pain in right hand; R20.2 Paresthesia of skin; M43.22 Fusion of spine, cervical region; M79.10 Myalgia, unspecified site; G89.29 Other chronic pain; F11.20 Opioid dependence, uncomplicated

== ENCOUNTER → 2020-05-30 | Outpatient (CLI) | payer BC, OTHER ==
[~2020-05-30] VITALS: Ht 167.6 cm; Wt 92.1 kg
[2020-05-30 13:11] VITALS: BP 154/86
--- NOTE | 2020-05-30 13:17 | NUR ---
Pain Clinic Assessment: 1. History of Osteoarthritis: NECK History of Rheumatoid Arthritis: DENIES 2. Height: 5 ft. 6 in. 167.6 cm. Weight: 203.0 lb. oz. 92.080 kg. Patient's BMI: 32.8 3. Vital Signs: BP: 154/86 Pulse: 59 Resp: 16 Temp: 02 Sat: 100 ECG Mon: 4. Pain Intensity: 5 5. Fall Risk: Dizziness: N Needs help standing or walking: N Fallen in the last 3 months: N Fall risk comments: 1 6. Patient on Blood Thinner: None 7. History of Hypertension: N 8. Opioid Therapy greater than 6 weeks: Y Opiate Contract Signed: 03/14/16 9. Risk Assessment Tool Provided: MOD 10. Functional Assessment Tool: 11. Recreational Drug Use: Never Drug Type: Tobacco Use: Never Smoker Tobacco Type: Amount or Packs/day: How Many Years: Alcohol Use: Past use Frequency: Quant:
--- NOTE | 2020-05-30 13:22 | NUR ---
Pain Clinic Assessment: 1. History of Osteoarthritis: NECK History of Rheumatoid Arthritis: DENIES 2. Height: 5 ft. 6 in. 167.6 cm. Weight: 203.0 lb. oz. 92.080 kg. Patient's BMI: 32.8 3. Vital Signs: BP: 154/86 Pulse: 59 Resp: 16 Temp: 02 Sat: 100 ECG Mon: 4. Pain Intensity: 5 5. Fall Risk: Dizziness: N Needs help standing or walking: N Fallen in the last 3 months: N Fall risk comments: 1 6. Patient on Blood Thinner: None 7. History of Hypertension: N 8. Opioid Therapy greater than 6 weeks: Y Opiate Contract Signed: 03/14/16 9. Risk Assessment Tool Provided: MOD-6 10. Functional Assessment Tool: 11. Recreational Drug Use: Never Drug Type: Tobacco Use: Never Smoker Tobacco Type: Amount or Packs/day: How Many Years: Alcohol Use: Past use Frequency: Quant:
--- NOTE | 2020-05-31 13:02 | HPC ---
[facility] [place] [address] [address] [place] [address] PAIN MANAGEMENT CONSULTATION Name: ADALBERTO BECKER Room #: REG [facility] Quiroz.#: [id number] Admission: 05/30/20 Attend Phys: Erica Puentes Discharge: Date of : 58 Report #: [id number] CC: Erica YOO MD DATE OF SERVICE: 05/30/2020 CHIEF COMPLAINT: Neck pain, right upper extremity pain and paresthesias. HISTORY OF PRESENT ILLNESS: This is a very pleasant 59-year-old gentleman who returns to the pain clinic today for discussion and refill of his medications. Today, he is reporting his pain score a 5/10, most significantly in his cervical spine that does radiate into his right shoulder, though at times, it does radiate down his left arm as well. It is an aching, constant, burning pain, worse with physical activity. He feels that the medications are beneficial at times as well as rest. He denies problems with constipation as a result of his opioid medications. Today, he is wondering if he is at his maximum oxycodone level due to the fact that at times he does have increasing pain. ALLERGIES: No known drug allergies. EGGS. CURRENT LIST OF MEDICATIONS: Oxycodone 10/325 q.i.d. p.r.n., Lyrica 75 mg b.i.d., meloxicam 7.5 mg, allopurinol, and fish oil. PQRS: 1. He has osteoarthritis in his neck. Denies any rheumatoid arthritis. 2. Height is 5 feet 6 inches, weight is 203, BMI is 32. 3. Vital signs; blood pressure 154/86, pulse is 59, respirations 16, oxygen sat is 100%. 4. Pain score is 5/10. 5. Denies dizziness, does not need help walking or standing, has not fallen in the last 3 months. 6. The patient is not on any blood thinners or medicine for hypertension. 7. His opioid therapy is greater than 6 weeks; therefore, an opioid signed contract is on the chart. Risk assessment is moderate. Functional assessment is 40/70. 8. Recreational drug use, he denies. He is not a smoker and does not drink alcohol. According to the prescription monitoring system his morphine milliequivalent per day is 60, filling them in a timely fashion. There is a drug screen on the chart that is appropriate and we will recheck this at his next visit. PHYSICAL EXAMINATION: GENERAL: This is alert and orientated 59-year-old gentleman who appears his stated age. He is well-developed, well-nourished, placing his current pain score at 5/10. HEENT: Normocephalic, atraumatic. Extraocular eye muscles are intact. He is wearing a mask. NECK: He has tenderness in his cervical spine that radiates into C6-C8 dermatomal distribution greater down his right arm to his mid forearm. He has well-healed cervical scar is in his cervical spine. MUSCULOSKELETAL: Upper extremity strength is symmetrical at 5/5. Increasing tenderness in his right shoulder, but able to move in all planes without difficulty. ASSESSMENT: 1. Cervical radiculopathy. 2. Cervical spondylosis with radiculopathy. 3. Cervical fusion. 4. Myofascial pain. 5. Chronic intractable pain. 6. Complex medical management under terms of written opioid agreement. We reviewed the fact that opiate medications are being used to provide analgesia adequate to support activities of daily living, not attempting to achieve a specific pain score on the 0-10 Visual Analog Scale. The current opiate medications are providing sufficient analgesia to allow the patient to participate in activities of daily living. The patient is not exhibiting any aberrant behavior suggestive of drug diversion. The patient is not having any adverse reactions to medications. The patient is not suffering from daytime somnolence or mental acuity changes. The patient is managing opiate-induced constipation with appropriate blur-mcq-zuiirnc agents and dietary considerations. The patient was counseled on concern for caution with operating a motor vehicle while using opiate medications. A physical exam was performed and the patient's functional status was evaluated. All patients with back pain were advised against the bed rest greater than 4 days and were advised to return to normal activities. Pain score assessment was noted and the treatment plan was reviewed with the patient. All current medications, both prescribed and OTC were reviewed and reconciled on the electronic medical record. Tobacco screening was accomplished and smoking cessation was advised when indicated. BMI was noted and diet/exercise modification was recommended for all patients following outside normal parameters. I reviewed with the patient today their responsibilities to safeguard prescription medications, reviewed their responsibility to utilize medications only as prescribed by the physician. They are to seek and receive pain medications only from 1 physician group ( [facility]). They are to use 1 pharmacy and keep the clinic informed if they change pharmacies. Their responsibilities include making followup visits in a timely fashion and to avoid abrupt discontinuation of medication usage. Their responsibilities further include bringing their medications (bottles from the pharmacy with residual pills) to the visit for possible confirmation of pill counts and the patient understands it is their responsibility to submit to random drug screens to ensure both that the medications prescribed are present, and that no other controlled substances are present. All prescriptions provided today were generated electronically. PLAN: 1. We discussed treatment options with the patient today. I explained to him that he is at 60 morphine milliequivalent according to the CDC guidelines. CDC would like every patient to be below 50. In our chronic pain population we strive for that amount but that several of our patients are in the 60-90 morphine milliequivalent, which is where he falls. That is why he is seen every 2 months for closer observation of his medications. I encouraged the patient to use his adjunct treatments that we are prescribing for him as opposed to increasing any opioids. We discussed his Lyrica, encouraging him to take 2 tablets at night to see if that is more beneficial or at least when he is having more days of increased pain. 2. We did discuss his meloxicam in depth. Encouraged him to take them on a daily basis with food for breakfast. Utilizing this medication for at least a month to see if that helps reduce some of his generalized aches and pains as well as his ongoing cervical issues. Reminding the patient to be mindful of any GI problems. If his pain is relieved at once daily, he is to continue that, but also enabling him to take 2 tablets a day on days that his pain has flared. Patient verbalizes understanding. 3. We did discuss possible epidurals or myofascial injections in the future with Dr. Doug Jason who he will see at his next visit. We can reevaluate him at that time. 4. The patient is seen today in collaboration with Dr. Doug Jason. We will repeat a UDS at the next visit as it had been over a year at that time. <ELECTRONICALLY SIGNED> By: Erica Puentes 05/31/20 1302 1406 [id number] Erica Puentes /nt
== END ==
LOC: PAIN 06:54
PROVIDERS: ATTEND Clinical Nurse Specialist Adult Health
DX: M47.22 Other spondylosis with radiculopathy, cervical region (principal); G89.4 Chronic pain syndrome; Z79.891 Long term (current) use of opiate analgesic

== ENCOUNTER → 2020-07-03 | Outpatient (CLI) | payer BC, OTHER ==
[~2020-07-03] VITALS: Ht 167.6 cm; Wt 90.6 kg
[2020-07-03 09:47] VITALS: BP 137/98
--- NOTE | 2020-07-03 10:20 | NUR ---
Pain Clinic Assessment: 1. History of Osteoarthritis: NECK History of Rheumatoid Arthritis: DENIES 2. Height: 5 ft. 6 in. 167.6 cm. Weight: 199.8 lb. oz. 90.629 kg. Patient's BMI: 32.3 3. Vital Signs: BP: 137/98 Pulse: 80 Resp: 16 Temp: 02 Sat: 100 ECG Mon: 4. Pain Intensity: 6 TO 8 5. Fall Risk: Dizziness: N Needs help standing or walking: N Fallen in the last 3 months: N Fall risk comments: 1 6. Patient on Blood Thinner: None 7. History of Hypertension: Y 8. Opioid Therapy greater than 6 weeks: Y Opiate Contract Signed: 03/14/16 9. Risk Assessment Tool Provided: MOD-6 10. Functional Assessment Tool: 11. Recreational Drug Use: Never Drug Type: Tobacco Use: Never Smoker Tobacco Type: Amount or Packs/day: How Many Years: Alcohol Use: Past use Frequency: Quant:
--- NOTE | 2020-07-04 12:16 | HPC ---
[facility] [address] PAIN MANAGEMENT CONSULTATION Name: ADALBERTO BECKER [facility] #: [facility] [id number] Admission: 07/03/20 Attend Phys: Doug Jason DO Discharge: Date of : 58 Report #: [id number] THIS REPORT FOR: cc: ARNIE OSBORNE Physician not on staff Doug Jason DO ~ DATE OF SERVICE: 07/03/2020 REFERRING PHYSICIAN: Arnie Osborne DO CHIEF COMPLAINT: Neck pain, right upper extremity pain with paresthesias. HISTORY OF PRESENT ILLNESS: As you know, the patient is a 59-year-old male who has returned today in followup visit with progressively worsening symptoms involving the cervical spine and right upper extremity. The patient underwent surgery and has not followed up with Neurosurgery despite the fact that his symptoms are progressively worsening. He is now experiencing pain at a level of up to 6-8/10. He is unable to sleep at night. His symptoms are essentially the same as they were prior to the previous surgery. He returns to discuss the possibility of adjusting medications. As you are aware, the patient was on excessively high doses of opioid medication initiated during the time of treatment options that were limited and opioid medications were a viable alternative treatment. This has been proven to be a short-term treatment option only as long-term benefits are not reproducible nor noted to show improved functionality. We have been doing our best to wean the patient down off of opioid medications with the understanding that the opioid medications have no legitimate long-term treatment response. The patient unfortunately feels that the medications are continuing to work beneficially and stating that he is confident that with increasing his opioids from 4 tablets a day to 5 tablets a day will resolve his symptoms. I have advised the patient at this time, this does not make clinical sense, but as he continues to work up with Neurosurgery, we have agreed to provide him the 5 a day and thus he returns to receive those refills. He denies injury or trauma or any changes in medical history since our last visit. ALLERGIES: No known drug allergies. CURRENT MEDICATIONS: Percocet 10/325s four times a day, meloxicam 7.5 mg once a day, allopurinol 100 mg twice a day, omega-3 fish oil 1 tab per day. SOCIAL HISTORY: The patient reports he is a nonsmoker. Denies IV or illicit drug use. Denies any chronic alcohol use. He is unaccompanied today. IMAGING: No new imaging available. [address] [address] PAIN MANAGEMENT CONSULTATION Name: ADALBERTO BECKER Room #: [facility]#: [id number] Admission: 07/03/20 Attend Phys: Doug Jason DO Discharge: Date of : 58 Report #: [id number] PHYSICAL EXAMINATION: VITAL SIGNS: Blood pressure 137/98, pulse 80, respiratory rate 16 and unlabored. The patient is 100% on room air. Height 5 feet 6 inches tall, weight 199.8 pounds, BMI calculated 32.3. GENERAL: Well-developed, well-nourished, well-hydrated 59-year-old male, he appears stated age, pain is rated anywhere from 6-8/10. HEENT: Normocephalic, atraumatic. Pupils equal, round and reactive. Speech is fluent. EXTREMITIES: Show no clubbing, no cyanosis. No appreciable edema. MUSCULOSKELETAL: Lower extremity strength appears symmetrical 5/5. Muscle bulk and tone is equal and symmetrical, some giveaway strength noted with cervical provocation testing against resistance. ASSESSMENT: 1. Chronic cervical radiculopathy. 2. Failed cervical spine surgery. 3. Opioid dependency. 4. Chronic intractable pain. PLAN: 1. The patient returns today in followup visit where we have discussed at length his progressively worsening symptoms. He is yet to follow up with Neurosurgery and I believe this is necessary for him to discuss the options for treatment. Reescalating doses of opioid medications have a limited effect and has not been shown to be a long-term treatment option for patients. It is not recommended in any of the literature that opioids should be utilized for any time longer than approximately 3 to up to 6 months postoperative and then discontinued. The patient has been on these medications since his visits with Dr. Noe Jason in 2006. Even with more appropriate treatment, his pain tends to continue. He returns stating that he has a followup with Dr. Teran in the next couple of weeks, but wishes adjustments in medication management at this time as we await that surgical discussion. We have agreed to provide an increase in the medication for a short-term with the understanding that long-term treatment would have to be addressed more with intrathecal pump therapy or other adjunctive treatment course and with less opioid use. 2. As part of our opioid screening process, the patient will submit urine drug screen as this is part of the contract with [facility]. The patient reports we will find no aberrancy in his testing. 3. We reviewed the fact that opiate medications are being used to provide analgesia adequate to support activities of daily living, not attempting to achieve a specific pain score on the 0-10 Visual Analog Scale. The current opiate medications are providing sufficient analgesia to allow the patient to participate in activities of daily living. The patient is not exhibiting any aberrant behavior suggestive of drug diversion. The patient is not having any [address] [place] [address] PAIN MANAGEMENT CONSULTATION Name: ADALBERTO BECKER Room #: [facility]#: [id number] Admission: 07/03/20 Attend Phys: Doug Jason DO Discharge: Date of : 58 Report #: [id number] adverse reactions to medications. The patient is not suffering from daytime somnolence or mental acuity changes. The patient is managing opiate-induced constipation with appropriate rpdt-oyc-rrxrrep agents and dietary considerations. The patient was counseled on concern for caution with operating a motor vehicle while using opiate medications. A physical exam was performed and the patient's functional status was evaluated. All patients with back pain were advised against the bed rest greater than 4 days and were advised to return to normal activities. Pain score assessment was noted and the treatment plan was reviewed with the patient. All current medications, both prescribed and OTC were reviewed and reconciled on the electronic medical record. Tobacco screening was accomplished and smoking cessation was advised when indicated. BMI was noted and diet/exercise modification was recommended for all patients following outside normal parameters. I reviewed with the patient today their responsibilities to safeguard prescription medications, reviewed their responsibility to utilize medications only as prescribed by the physician. They are to seek and receive pain medications only from 1 physician group ([facility]). They are to use 1 pharmacy and keep the clinic informed if they change pharmacies. Their responsibilities include making followup visits in a timely fashion and to avoid abrupt discontinuation of medication usage. Their responsibilities further include bringing their medications (bottles from the pharmacy with residual pills) to the visit for possible confirmation of pill counts and the patient understands it is their responsibility to submit to random drug screens to ensure both that the medications prescribed are present, and that no other controlled substances are present. All prescriptions provided today were generated electronically. 4. The patient will have an increase in his Percocet from four 10/325 tablets per day to five 10/325 tablets a day with the understanding that he is now at 75 morphine equivalents, which will require him to be seen on a monthly basis. The patient was advised there will be no early refills of these medications, he can take no more than 5 tablets per day and should minimize his reliance on these medications as much as possible. A prescription for 150 tablets were sent to the local pharmacy. I did advise the patient that this will not be a long-term treatment goal that if he needs to remain on opioid medications that we would recommend looking towards an intrathecal pump as this will provide better baseline pain control and less reliance on oral medications and the complications therein. 5. The patient indicates that he has discontinued the use of his Lyrica, stating that he was having side effects to the medication. It is unfortunate that this individual has chosen to discontinue the agent that is likely providing the greatest analgesic benefit. We will address this again at followup visit if no surgical options are recommended. He will need to be on a neuropathic medication to gain any type of analgesic benefit. Next, the patient was provided prescription of Mobic 7.5 mg 1 tab p.o. b.i.d. I have given the patient #60 with 1 refill. He is denying side effects of dyspepsia, [address] [address] PAIN MANAGEMENT CONSULTATION Name: EUGENIOADALBERTO Oksana Room #: REG [facility].#: [id number] Admission: 07/03/20 Attend Phys: Doug E. Eren, DO Discharge: Date of : 58 Report #: [id number] worsening of blood pressure, lower extremity edema with its use. Continue the therapy. 6. We will see the patient back in followup visit in 1 month. At that time, the patient will have had a chance to see Dr. Teran and we will then be able to discuss the surgical options presented to him in regards to his ongoing and progressively worsening neck pain. <ELECTRONICALLY SIGNED> By: Doug Jason DO 07/04/20 1216 1207 [id number] Doug Jsaon DO /nt
== END ==
LOC: PAIN 06:45
PROVIDERS: ATTEND Anesthesiology Pain Medicine
DX: M54.12 Radiculopathy, cervical region (principal); M79.641 Pain in right hand; R20.2 Paresthesia of skin; G89.29 Other chronic pain; M96.1 Postlaminectomy syndrome, not elsewhere classified; F11.20 Opioid dependence, uncomplicated

== ENCOUNTER → 2020-07-31 | Outpatient (CLI) | payer BC, OTHER ==
[~2020-07-31] VITALS: Ht 165.1 cm; Wt 90.6 kg
[2020-07-31 08:01] VITALS: BP 132/85
--- NOTE | 2020-07-31 08:08 | NUR ---
Pain Clinic Assessment: 1. History of Osteoarthritis: NECK History of Rheumatoid Arthritis: DENIES 2. Height: 5 ft. 5 in. 165.1 cm. Weight: 199.8 lb. oz. 90.629 kg. Patient's BMI: 33.2 3. Vital Signs: BP: 132/85 Pulse: 71 Resp: 16 Temp: 02 Sat: 99 ECG Mon: 4. Pain Intensity: 2 5. Fall Risk: Dizziness: N Needs help standing or walking: N Fallen in the last 3 months: N Fall risk comments: 1 6. Patient on Blood Thinner: None 7. History of Hypertension: Y 8. Opioid Therapy greater than 6 weeks: Y Opiate Contract Signed: 03/14/16 9. Risk Assessment Tool Provided: MOD-6 10. Functional Assessment Tool: 11. Recreational Drug Use: Never Drug Type: Tobacco Use: Never Smoker Tobacco Type: Amount or Packs/day: How Many Years: Alcohol Use: Past use Frequency: Quant:
--- NOTE | 2020-07-31 12:22 | HPC ---
[facility] [place] [address] PAIN MANAGEMENT CONSULTATION Name: ADALBERTO BECKER Room #: [facility] [id number] Admission: 07/31/20 Attend Phys: Doug Jason DO Discharge: Date of : 58 Report #: [id number] THIS REPORT FOR: cc: JEFFERY OSBORNE Physician not on staff Doug Jason DO ~ DATE OF SERVICE: 07/31/2020 CHIEF COMPLAINT: Neck pain, upper extremity pain with paresthesias. HISTORY OF PRESENT ILLNESS: As you know, the patient is a 59-year-old male who has undergone surgery to address cervical radiculopathy involving the cervical spine and right upper extremity. He underwent surgery to alleviate and decompress the neural compression noted on imaging. Unfortunately, his symptoms resolved temporarily, but quickly returned. We started the patient on appropriate medication in the form of neuropathic medications, but the patient was experiencing side effects. He continues to take oxycodone, which he states is providing improvement. He was last seen in our clinic on 07/03/2020, requesting an increase in his medication as he was not seeing a prolonged benefit. He has not followed up with Neurosurgery despite our request to do so. He has plans to see Neurosurgery first part of August. He has returned today for refill of medications. The patient is denying side effects of sleepiness, disorientation, confusion, mental slowing and constipation with its use. We have also reviewed the patient's urine drug screen, it is negative for any opioids, positive only for nicotine. He has no neuropathic medications on the list of medications at present. ALLERGIES: No known drug allergies. CURRENT MEDICATIONS: Percocet 10/325 one tab p.o. q. 6 hours p.r.n. for pain, meloxicam 7.5 mg once a day, allopurinol 100 mg twice a day, omega-3 fish oil 1 tab per day. SOCIAL HISTORY: The patient reports he is a nonsmoker, but does chew tobacco consistently. Denies IV or illicit drug use. Denies any chronic alcohol use. He is unaccompanied today. IMAGING: No new imaging available. PHYSICAL EXAMINATION: VITAL SIGNS: Blood pressure 132/85, pulse 71, respiratory rate 16 and unlabored. The patient is 99% on room air. Height 5 feet 5 inches tall, weight 199.8 pounds, BMI calculated 33.2. GENERAL: Well-developed, well-nourished, well-hydrated 59-year-old male appearing stated age. He is placing current pain score 2/10. HEENT: Normocephalic, atraumatic. Pupils equal, round, [place] [address] PAIN MANAGEMENT CONSULTATION Name: ADALBERTO BECKER Room #: REG [facility] Margaret#: [id number] Admission: 07/31/20 Attend Phys: Doug Jason DO Discharge: Date of : 58 Report #: [id number] patient is wearing a mask in compliance with COVID-19 regulations. EXTREMITIES: Show no clubbing, no cyanosis, no edema. MUSCULOSKELETAL: Upper extremity strength remains symmetrical 5/5. There are some changes from a muscle bulk when comparing upper extremities. This is consistent with findings from previous evaluations. Cervical provocation testing is met with slight increase in overall pain. Tactile sensation is intact. ASSESSMENT: 1. Chronic cervical radiculopathy. 2. Failed cervical spine surgery. 3. Opioid dependency. 4. Chronic intractable pain. PLAN: 1. The patient returns today in followup visit requesting refill on medications. He feels the combination of oxycodone along with changes in his daily activity has improved pain. He has discontinued the use of neuropathic medications stating it was causing too many side effects. This is unfortunate as it is the medication of choice for neuropathic symptoms. I advised the patient at this time that we would recommend neuropathic medications over any other form of treatment as that is the only medication indicated and appropriate for use. The patient states that he could not tolerate the medication and cannot reinitiate the therapy. He has requested refill of his opioid medications today. 2. The patient and I discussed at length today that long-term treatment with opioid medications is not recommended nor appropriate. We have agreed to provide the patient with medication prior to his surgical consultation. If the patient is not seeing significant benefit from a surgical standpoint and he is not a candidate for further surgical decompression, then we will have to look towards specifically neuropathic medications or a spinal cord stimulator as a long-term opioid therapy is not indicated nor recommended for chronic nerve related pain. The patient and I had this long discussion today in regards to this issue. 3. We also discussed the patient's urine drug screen obtained 07/03/2020. This showed negative for any opioid medication, but did show positive for nicotine. I have advised the patient at this time that this is an inappropriate urine drug screen and we have significant concerns in regards to his misuse of medications. It was also noted that his neuropathic medications were only mildly positive, which indicates he has not taken it in some time. We have agreed to provide medication as he looks toward surgical options, but then we will have to discuss more appropriate treatments if long-term treatment is going to be medication management. 4. The patient was provided prescription of oxycodone 10/325 one tab p.o. q. 4 hours p.r.n. for pain. I have given the patient #150 tablets to release today. Prescriptions were sent via e-scribe to local pharmacy. The patient was advised to take the medication only when necessary, not to take the medication [address] [address] PAIN MANAGEMENT CONSULTATION Name: EUGENIOADALBERTO WILLOUGHBY Room #: REG [facility]#: [id number] Admission: 07/31/20 Attend Phys: Doug Jason DO Discharge: Date of : 58 Report #: [id number] prophylactically. We will discuss weaning parameters in followup visit. 5. The patient will be continued on Mobic 7.5 mg 1 tab b.i.d. I have given the patient #60 tablets, no refills. He will continue the medication for his anti-inflammatory effects. 6. Plans to see the patient back in followup visit in 1-2 months. He will be following up with Neurosurgery before our next visit, we will discuss the treatment course recommended through their services understanding that long-term opioid medication cannot be and will not be provided as it is not appropriate in this case for neuropathic symptoms. We will see him back in followup visit in 1 month. <ELECTRONICALLY SIGNED> By: Doug Jason DO 07/31/20 1222 0902 [id number] Doug Jason, DO /nt
== END ==
LOC: PAIN 06:45
PROVIDERS: ATTEND Anesthesiology Pain Medicine
DX: M54.12 Radiculopathy, cervical region (principal); R20.2 Paresthesia of skin; F11.20 Opioid dependence, uncomplicated; G89.29 Other chronic pain

== ENCOUNTER → 2020-09-19 | Outpatient (CLI) | payer BC, OTHER ==
[~2020-09-19] VITALS: Ht 167.6 cm; Wt 91.6 kg
[2020-09-19 12:55] VITALS: BP 133/83
--- NOTE | 2020-09-19 12:58 | NUR ---
Pain Clinic Assessment: 1. History of Osteoarthritis: NECK History of Rheumatoid Arthritis: DENIES 2. Height: 5 ft. 6 in. 167.6 cm. Weight: 202.0 lb. oz. 91.627 kg. Patient's BMI: 32.6 3. Vital Signs: BP: 133/83 Pulse: 65 Resp: 16 Temp: 02 Sat: 98 ECG Mon: 4. Pain Intensity: 2 5. Fall Risk: Dizziness: N Needs help standing or walking: N Fallen in the last 3 months: N Fall risk comments: 1 6. Patient on Blood Thinner: None 7. History of Hypertension: Y 8. Opioid Therapy greater than 6 weeks: Y Opiate Contract Signed: 03/14/16 9. Risk Assessment Tool Provided: MOD-6 10. Functional Assessment Tool: 11. Recreational Drug Use: Never Drug Type: Tobacco Use: Never Smoker Tobacco Type: Amount or Packs/day: How Many Years: Alcohol Use: Past use Frequency: Quant:
--- NOTE | 2020-09-20 10:15 | HPC ---
[facility] [place] [address] PAIN MANAGEMENT CONSULTATION Name: ADALBRETO BECKER Room #: REG [facility]#: [id number] Admission: 09/19/20 Attend Phys: Erica Puentes Discharge: Date of : 58 Report #: [id number] THIS REPORT FOR: cc: JEFFERY OSBORNE Physician not on staff Erica Puentes ~ DATE OF SERVICE: 09/19/2020 CHIEF COMPLAINT: Neck pain, upper extremity pain and paresthesias. HISTORY OF PRESENT ILLNESS: As you know, this is a 59-year-old gentleman who returns to the pain clinic today for ongoing medication management. He continues to have cervical radiculopathy that affects his right upper extremity. He has had cervical decompression greater than a year ago and was continued to have ongoing pain. He reports he did follow up with Neurosurgery since our last visit. Surgeon told him when his pain is so severe that his medications are not effective, then he is to return and have surgery. At this time, the patient is reporting a pain score of 2/10, believing that his pain regimen is currently relieving most of his pain, so presently he is not considering surgery. He states his pain is worse in his neck and right arm and shoulder. It is an aching, constant in sensation that is worse with activity. The medication as well as rest and sitting are beneficial. He denies any constipation issues as a result of his medications and he does not experience any disorientation or confusion as a result of his medications as well. ALLERGIES: No known drug allergies. CURRENT LIST OF MEDICATIONS: Percocet 10/325 up to 5 times a day, meloxicam 7.5 mg daily, allopurinol and fish oil. PQRS: 1. He has arthritic changes in his neck. Denies any rheumatoid arthritis. 2. Height is 5 feet 6 inches, weight is 202, BMI is 32. 3. Vital signs; blood pressure 133/83, pulse is 64, respirations 16, oxygen sat is 98%. 4. Pain score 2/10. 5. Denies dizziness, does not need help walking or standing, has not fallen in the last 3 months. 6. The patient is not on blood thinners, but does not take medicine for hypertension. 7. Opioid therapy is greater than 6 weeks, opioid signed contract is on the chart. Risk assessment is moderate. Functional assessment is 40/70. 8. Recreational drug use, he denies any tobacco use and does not drink alcohol. According to the prescription monitoring system, he is due to fill his medications next week. His morphine mEq is 80 MME per day. There is a drug [address] [address] PAIN MANAGEMENT CONSULTATION Name: EUGENIOADALBERTO Oksana Room #: REG [facility]#: [id number] Admission: 09/19/20 Attend Phys: Erica Puentes Discharge: Date of : 58 Report #: [id number] screen in the chart. We will recheck this at his next visit as well. PHYSICAL EXAMINATION: GENERAL: This is alert and orientated 59-year-old gentleman who appears his stated age, rating his pain score at 2/10. HEENT: Normocephalic and atraumatic. Extraocular eye muscles are intact. He is a good historian and his speech is fluent. He is wearing a mask. NECK: He has pain that follows into his right shoulder. MUSCULOSKELETAL: Cervical provocation testing is met with increasing pain. His upper extremity strength is symmetrical at 5/5, though he does have well-healed surgical scars in his cervical spine and his pain follows the C6-C7, C7-C8 dermatomal distribution. ASSESSMENT: 1. Cervical radiculopathy. 2. Failed cervical spine surgery. 3. Opioid dependency. 4. Chronic intractable pain. 5. Myofascial pain. 6. Complex medical management under terms of written opioid agreement. PLAN: 1. We discussed treatment options with the patient today. The patient did follow up with the neurosurgeon as we instructed him to do at his last visit. At this time, they are holding off on surgery until his pain does increase. Currently, he believes the medication regimen is helping. We will have Dr. Doug Jason sent his Percocet , #150 to his pharmacy for today and 4-week supply and meloxicam 7.5, quantity 60 with one additional refill. The patient does take this daily and does increase it as needed when his pain is more severe. He does report that the meloxicam does help much of his arthritic changes. 2. We did discuss briefly temazepam, which is an osteoarthritic medication that will be coming to the market. The patient is interested in possibly trialing that medication when it is available in decreasing or weaning off his opioids. 3. 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 He is scheduled to have his second one in 2 weeks. 4. The patient will return in 2 months. The patient is seen today in collaboration with Dr. Doug Jason. <ELECTRONICALLY SIGNED> By: Erica Puentes 09/20/20 1015 1331 1507 Erica Puentes /javan
== END ==
LOC: PAIN 07:11
PROVIDERS: ATTEND Clinical Nurse Specialist Adult Health
DX: M54.12 Radiculopathy, cervical region (principal); G89.29 Other chronic pain; M79.10 Myalgia, unspecified site; F11.20 Opioid dependence, uncomplicated; M96.1 Postlaminectomy syndrome, not elsewhere classified; Z79.899 Other long term (current) drug therapy

== ENCOUNTER → 2020-11-07 | Outpatient (CLI) | payer BC, OTHER ==
[~2020-11-07] VITALS: Ht 167.6 cm; Wt 91.4 kg
[2020-11-07 08:33] VITALS: BP 128/81
--- NOTE | 2020-11-07 08:46 | NUR ---
Pain Clinic Assessment: 1. History of Osteoarthritis: NECK History of Rheumatoid Arthritis: DENIES 2. Height: 5 ft. 6 in. 167.6 cm. Weight: 201.4 lb. oz. 91.355 kg. Patient's BMI: 32.5 3. Vital Signs: BP: 128/81 Pulse: 67 Resp: 16 Temp: 02 Sat: 100 ECG Mon: 4. Pain Intensity: 2 TO 4 5. Fall Risk: Dizziness: N Needs help standing or walking: N Fallen in the last 3 months: N Fall risk comments: 1 6. Patient on Blood Thinner: None 7. History of Hypertension: Y 8. Opioid Therapy greater than 6 weeks: Y Opiate Contract Signed: 03/14/16 9. Risk Assessment Tool Provided: MOD-6 10. Functional Assessment Tool: 11. Recreational Drug Use: Never Drug Type: Tobacco Use: Never Smoker Tobacco Type: Amount or Packs/day: How Many Years: Alcohol Use: Past use Frequency: Quant:
--- NOTE | 2020-11-08 16:05 | HPC ---
[facility] [place] [address] PAIN MANAGEMENT CONSULTATION Name: ADALBERTO BECKER Room #: REG [facility]#: [id number] Admission: 11/07/20 Attend Phys: Erica Puentes Discharge: Date of : 58 Report #: [id number] THIS REPORT FOR: cc: JEFFERY OSBORNE Physician not on staff Erica Puentes ~ DATE OF SERVICE: 11/07/2020 CHIEF COMPLAINT: Neck pain, upper extremity pain and paresthesias. HISTORY OF PRESENT ILLNESS: This is a very pleasant 60-year-old gentleman who returns to the pain clinic today for renewal of his opioid medication. As you know, he suffers continuous neck pain, though he has had surgery. His pain is mostly located in his neck and radiates into his right shoulder and right arm. He describes it as a constant, aching pain and rating his pain score today at 2-4. He believes the medications as well as resting and sitting have been beneficial in reducing his pain. The patient is excited that he is back to work. 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 He felt when he was at home he was more sedentary, which did increase his pain. He denies daytime somnolence or constipation as a result of his opioid medications. ALLERGIES: No known drug allergies. CURRENT LIST OF MEDICATIONS: Oxycodone 10/325, meloxicam, Lyrica p.r.n., allopurinol and fish oil. PATIENT'S PQRS: 1. 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 Denies any rheumatoid arthritis. 2. Height is 5 feet 6 inches, weight is 201, BMI is 32. 3. Vital signs 128/81, pulse is 67, respirations 16, oxygen sat is 100. 4. Pain score is 2-4. 5. Denies dizziness, does not need help walking or standing, has not fallen in the last 3 months. 6. The patient is not on any blood thinners, but does have a history of hypertension. 7. Opioid therapy is greater than 6 weeks; therefore, an opioid signed contract is on the chart. Risk assessment is moderate. Functional assessment is 40/70. 8. Recreational drug use in the past. He chews tobacco and does not drink alcohol. According to the prescription monitoring system, he is due to fill his medications next week, filling them in a timely fashion. His morphine milliequivalent is 75 MMEs. We will collect a random drug screen on this [address] [address] PAIN MANAGEMENT CONSULTATION Name: EUGENIOADALBERTO Oksana Room #: REG [facility] Margaret#: [id number] Admission: 11/07/20 Attend Phys: Erica Puentes Discharge: Date of : 58 Report #: [id number] patient today. He reports taking his last medication this morning. PHYSICAL EXAMINATION: GENERAL: This is a well-developed, well-nourished, well-hydrated 60-year-old gentleman who appears his stated age, placing his current pain score from 2-4. HEENT: Normocephalic, atraumatic. Pupils equal, round and reactive to light. He is wearing a mask. EXTREMITIES: No clubbing, no cyanosis, no edema. MUSCULOSKELETAL: He has a well-healed scar in his cervical region. His cervical provocation testing is met with increasing pain and has tenderness in his cervical spine that radiates into his right shoulder, decreased muscle bulk in his upper extremity on his right side, though his strength is symmetrical at 5/5 with good sensation. His pain follows the C6-C7, C7-C8 dermatomal distribution. ASSESSMENT: 1. Cervical radiculopathy. 2. Failed cervical spine syndrome. 3. Opioid dependency. 4. Chronic intractable pain. 5. Myofascial pain. 6. Complex medical management under written opioid agreement. We reviewed the fact that opiate medications are being used to provide analgesia adequate to support activities of daily living, not attempting to achieve a specific pain score on the 0-10 Visual Analog Scale. The current opiate medications are providing sufficient analgesia to allow the patient to participate in activities of daily living. The patient is not exhibiting any aberrant behavior suggestive of drug diversion. The patient is not having any adverse reactions to medications. The patient is not suffering from daytime somnolence or mental acuity changes. The patient is managing opiate-induced constipation with appropriate leol-tgc-gqmphle agents and dietary considerations. The patient was counseled on concern for caution with operating a motor vehicle while using opiate medications. PLAN: 1. We discussed treatment options with the patient today. 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 He believes his pain is even slightly decreased, rating at a 2-4 today. He also does continue to try and walk more now that the weather has improved and feels like this is beneficial as well. Today, he would like to continue his oxycodone. Scripts will be sent electronically by Dr. Doug Jason for , #50, for today and a 4-week supply. 2. We will continue him on his meloxicam. He does not take this on a daily basis, but feels it is beneficial in helping with his osteoarthritic issues, 7.5 meloxicam, #60 with 5 refills will be sent electronically. [facility] [address] [place] [address] PAIN MANAGEMENT CONSULTATION Name: ADALBERTO BECKER Oksana Room #: REG [facility].#: [id number] Admission: 11/07/20 Attend Phys: Erica Puentes Discharge: Date of : 58 Report #: [id number] 3. We will collect a random drug screen on this patient today. Time spent with the patient in consultation, reviewing recent studies and clinical notes, physical examination and correlation of findings and medical documentation to determine treatment options 14 minutes. Time spent in preparation for appointment reviewing prescription monitoring system and reviewing previous records and proposed treatment options and current list of medications 5 minutes. Time spent preparing and sending electronic prescriptions with collaborating physician, documentation of visit and plan of treatment and collection of urine 8 minutes. Total time spent 27 minutes. <ELECTRONICALLY SIGNED> By: Erica Puentes 11/08/20 [id number] [id number] Erica Puentes /nt
== END ==
LOC: PAIN 06:42
PROVIDERS: ATTEND Clinical Nurse Specialist Adult Health
DX: M54.12 Radiculopathy, cervical region (principal); M79.643 Pain in unspecified hand; R20.2 Paresthesia of skin; M79.10 Myalgia, unspecified site; G89.29 Other chronic pain; F11.20 Opioid dependence, uncomplicated; Z79.899 Other long term (current) drug therapy

== ENCOUNTER → 2021-01-02 | Outpatient (CLI) | payer BC, OTHER ==
[~2021-01-02] VITALS: Ht 167.6 cm; Wt 88.4 kg
[2021-01-02 08:13] VITALS: BP 140/63
--- NOTE | 2021-01-02 08:19 | NUR ---
Pain Clinic Assessment: 1. History of Osteoarthritis: NECK History of Rheumatoid Arthritis: DENIES 2. Height: 5 ft. 6 in. 167.6 cm. Weight: 194.8 lb. oz. 88.361 kg. Patient's BMI: 31.5 3. Vital Signs: BP: 140/63 Pulse: 64 Resp: 16 Temp: 02 Sat: 100 ECG Mon: 4. Pain Intensity: 3 5. Fall Risk: Dizziness: N Needs help standing or walking: N Fallen in the last 3 months: N Fall risk comments: 1 6. Patient on Blood Thinner: None 7. History of Hypertension: Y 8. Opioid Therapy greater than 6 weeks: Y Opiate Contract Signed: 03/14/16 9. Risk Assessment Tool Provided: MOD-6 10. Functional Assessment Tool: 11. Recreational Drug Use: Never Drug Type: Tobacco Use: Never Smoker Tobacco Type: Amount or Packs/day: How Many Years: Alcohol Use: Past use Frequency: Quant:
== END ==
LOC: PAIN 06:53
PROVIDERS: ATTEND Clinical Nurse Specialist Adult Health
DX: G89.29 Other chronic pain (principal); M54.12 Radiculopathy, cervical region; M79.18 Myalgia, other site; Z98.890 Other specified postprocedural states; Z91.012 Allergy to eggs; Z79.891 Long term (current) use of opiate analgesic; Z79.899 Other long term (current) drug therapy

== ENCOUNTER → 2021-03-06 | Outpatient (CLI) | payer BC, OTHER ==
[~2021-03-06] VITALS: Ht 167.6 cm; Wt 87.5 kg
[~2021-03-06] MED LIST changes: +MELOXICAM7.5 MG PO
[2021-03-06 08:21] VITALS: BP 157/88
--- NOTE | 2021-03-06 08:23 | NUR ---
Pain Clinic Assessment: 1. History of Osteoarthritis: NECK History of Rheumatoid Arthritis: DENIES 2. Height: 5 ft. 6 in. 167.6 cm. Weight: 193.0 lb. oz. 87.544 kg. Patient's BMI: 31.2 3. Vital Signs: BP: 157/88 Pulse: 66 Resp: 16 Temp: 02 Sat: 100 ECG Mon: 4. Pain Intensity: 2 5. Fall Risk: Dizziness: N Needs help standing or walking: N Fallen in the last 3 months: N Fall risk comments: 1 6. Patient on Blood Thinner: None 7. History of Hypertension: Y 8. Opioid Therapy greater than 6 weeks: Y Opiate Contract Signed: 03/14/16 9. Risk Assessment Tool Provided: MOD-6 10. Functional Assessment Tool: 11. Recreational Drug Use: Never Drug Type: Tobacco Use: Never Smoker Tobacco Type: Amount or Packs/day: How Many Years: Alcohol Use: Past use Frequency: Quant:
--- NOTE | 2021-03-11 08:33 | HPC ---
[facility] [address] [address] [place] [address] PAIN MANAGEMENT CONSULTATION Name: ADALBERTO BECKER Room #: REG [facility]#: [id number] Admission: 03/06/21 Attend Phys: Erica Puentes Discharge: Date of : 58 Report #: [id number] THIS REPORT FOR: cc: JEFFERY OSBORNE Physician not on staff Erica Puentes ~ cc: Doug Jason DO DATE OF SERVICE: 03/06/2021 CHIEF COMPLAINT: Neck pain, upper extremity pain and paresthesias. HISTORY OF PRESENT ILLNESS: This is a pleasant 60-year-old gentleman who returns to the pain clinic today for renewal of his medications that he takes for his ongoing cervical radiculopathy and myofascial pain. Today, he is reporting a pain score of 2/10 stating that his current regimen of oxycodone 10/325 and meloxicam have been beneficial in decreasing his pain. His pain starts in his cervical region and radiates down his neck into his shoulder, describing it as an aching, dull sensation that is worse with activity. 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 At that time, he may need to restart his Lyrica 75 mg at bedtime, but currently he has not been taking that medication. He denies constipation or daytime somnolence. He does have somnolence issues when he is taking the Lyrica for the first few hours in the morning. CURRENT LIST OF MEDICATIONS: Oxycodone 10/325 up to five times a day, meloxicam 7.5 mg b.i.d., Lyrica p.r.n., allopurinol, and fish oil. PQRS: 1. 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 Denies any rheumatoid arthritis. Height is 5 feet 6 inches, weight is 193. BMI is 31. 2. Vital signs; blood pressure 157/88, pulse is 66, respirations 16, oxygen sat is 100. 3. Pain score is 2/10. 4. Denies dizziness, does not need help walking or standing, has not fallen in the last 3 months. 5. The patient is not on any blood thinners, but does take medicine for hypertension. Opioid therapy is greater than 6 weeks; therefore, an opioid signed contract is on the chart. Risk assessment is moderate. Functional assessment is 40/70. 6. Recreational drug use, he denies. He is not a smoker and does not drink alcohol. According to the prescription monitoring system, he filled on 02/12 filling in a timely fashion. His morphine mEq is 75 MMEs. There is a current drug screen on the chart that is appropriate for his medication. It was positive for nicotine, which he does say that he occasionally does uses chewing tobacco. [address] [address] PAIN MANAGEMENT CONSULTATION Name: ADALBERTO BECKER Room #: REG [facility]#: [id number] Admission: 03/06/21 Attend Phys: Erica Puentes Discharge: Date of : 58 Report #: [id number] PHYSICAL EXAMINATION: GENERAL: This is alert, orientated, pleasant 60-year-old gentleman who appears his stated age, rating his pain score today at 2/10. HEENT: Normocephalic, atraumatic. Extraocular eye muscles are intact. He is wearing a mask. EXTREMITIES: No clubbing, no cyanosis, no edema. MUSCULOSKELETAL: Upper extremity strength remains symmetrical at 5/5. There are some changes in his muscle bulk when comparing extremities. Cervical provocation testing is met with slight increase in pain overall. Sensation is intact. Pain follows his C6-C7, C7-C8 dermatomal distribution. IMPRESSION: 1. Cervical radiculopathy. 2. Failed cervical spine surgery. 3. Opioid dependency. 4. Chronic intractable pain. 5. Myofascial pain. 6. Complex medical management utilizing scheduled opioid medications. We reviewed the fact that opiate medications are being used to provide analgesia adequate to support activities of daily living, not attempting to achieve a specific pain score on the 0-10 Visual Analog Scale. The current opiate medications are providing sufficient analgesia to allow the patient to participate in activities of daily living. The patient is not exhibiting any aberrant behavior suggestive of drug diversion. The patient is not having any adverse reactions to medications. The patient is not suffering from daytime somnolence or mental acuity changes. The patient is managing opiate-induced constipation with appropriate yihc-dwr-fxnxiki agents and dietary considerations. The patient was counseled on concern for caution with operating a motor vehicle while using opiate medications. A physical exam was performed and the patient's functional status was evaluated. All patients with back pain were advised against the bed rest greater than 4 days and were advised to return to normal activities. Pain score assessment was noted and the treatment plan was reviewed with the patient. All current medications, both prescribed and OTC were reviewed and reconciled on the electronic medical record. Tobacco screening was accomplished and smoking cessation was advised when indicated. BMI was noted and diet/exercise modification was recommended for all patients following outside normal parameters. I reviewed with the patient today their responsibilities to safeguard prescription medications, reviewed their responsibility to utilize medications only as prescribed by the physician. They are to seek and receive pain medications only from 1 physician group ( [facility]). They are to use [address] [facility] [address] [place] [address] PAIN MANAGEMENT CONSULTATION Name: EUGENIOADALBERTO Oksana Room #: REG [facility]#: [id number] Admission: 03/06/21 Attend Phys: Erica SO Sanchezjc Discharge: Date of : 58 Report #: [id number] pharmacy and keep the clinic informed if they change pharmacies. Their responsibilities include making followup visits in a timely fashion and to avoid abrupt discontinuation of medication usage. Their responsibilities further include bringing their medications (bottles from the pharmacy with residual pills) to the visit for possible confirmation of pill counts and the patient understands it is their responsibility to submit to random drug screens to ensure both that the medications prescribed are present, and that no other controlled substances are present. All prescriptions provided today were generated electronically. PLAN: 1. We discussed treatment options with the patient today. The patient feels the current regimen allows him to be as active as he would like with very minimal pain and would like to continue his oxycodone , #150. We will have Dr. Doug Jason send these electronically to his pharmacy today. We did discuss possible shortage of medications due to distribution issues. He has elected to change to the [facility] downstairs. They do have plenty of this medication in stock and will fill this for him today, filling his second script in 5 weeks. We did discuss he has been having issues from his current pharmacy where they questioned him of why he takes opioids every time he fills his medications. 2. We will continue his meloxicam, which he does find beneficial in helping with his osteoarthritic joints with no GI upset. Scripts sent for meloxicam 7.5, #60, with 5 additional refills. 3. No Lyrica is sent today. The patient may be start this medication this fall and at that time, may need another refill. The patient will return in 2 months. Time spent with patient in consultation, reviewing recent studies and clinical notes, physician report, physical examination and correlation of findings and medical documentation to determine possible treatment options 13 minutes. Time spent preparation for appointment reviewing prescription monitoring system reports, reviewing previous records and proposed treatment options and current medications 5 minutes. Time spent preparing and sending electronic prescriptions with collaborating physician, Dr. Doug Jason, documentation of visit and plan of treatment 5 minutes. Total time spent 23 minutes. <ELECTRONICALLY SIGNED> By: Erica Puentes 03/11/21 [id number] Erica Puentes /javan
== END ==
LOC: PAIN 06:48
PROVIDERS: ATTEND Clinical Nurse Specialist Adult Health
DX: M54.12 Radiculopathy, cervical region (principal); G89.4 Chronic pain syndrome; Z79.891 Long term (current) use of opiate analgesic; Z79.899 Other long term (current) drug therapy

== ENCOUNTER → 2021-05-06 | Outpatient (CLI) | payer BC, OTHER ==
[~2021-05-06] VITALS: Ht 167.6 cm; Wt 86.5 kg
[2021-05-06 08:35] VITALS: BP 161/88
--- NOTE | 2021-05-06 08:38 | NUR ---
Pain Clinic Assessment: 1. History of Osteoarthritis: NECK History of Rheumatoid Arthritis: DENIES 2. Height: 5 ft. 6 in. 167.6 cm. Weight: 190.6 lb. oz. 86.456 kg. Patient's BMI: 30.8 3. Vital Signs: BP: 161/88 Pulse: 78 Resp: 20 Temp: 02 Sat: 98 ECG Mon: 4. Pain Intensity: 2-3 5. Fall Risk: Dizziness: N Needs help standing or walking: N Fallen in the last 3 months: N Fall risk comments: 1 6. Patient on Blood Thinner: None 7. History of Hypertension: Y 8. Opioid Therapy greater than 6 weeks: Y Opiate Contract Signed: 03/14/16 9. Risk Assessment Tool Provided: MOD-6 10. Functional Assessment Tool: 11. Recreational Drug Use: Never Drug Type: Tobacco Use: Never Smoker Tobacco Type: Amount or Packs/day: How Many Years: Alcohol Use: Past use Frequency: Quant:
--- NOTE | 2021-05-07 14:27 | HPC ---
[facility] [place] [address] PAIN MANAGEMENT CONSULTATION Name: ADALBERTO BECKER Room #: REG [facility]#: [id number] Admission: 05/06/21 Attend Phys: Erica Puentes Discharge: Date of : 58 Report #: [id number] THIS REPORT FOR: cc: JEFFERY OSBORNE Physician not on staff Erica Puentes ~ cc: Doug Jason DO DATE OF SERVICE: 05/06/2021 CHIEF COMPLAINT: Neck pain, upper extremity pain and paresthesias and left knee pain. HISTORY OF PRESENT ILLNESS: This is a pleasant 60-year-old gentleman who returns to the pain clinic today for renewal of his medications. Today, the patient is reporting a pain score of 2-3 in his cervical region. He believes that it is well controlled with his current medication therapy. Today, he is complaining of left knee discomfort. He reports having osteoarthritic issues in his left knee in the past that did require surgery. 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 He does believe that rest is beneficial in helping relieve some of that discomfort. He denies any swelling in that left knee. He describes his neck pain as an aching, constant dull sensation that is worse with activity as well. Today, he is requesting refills of his oxycodone 10/325 medications. He denies constipation or daytime somnolence as a result of his medication therapy. ALLERGIES: EGGS. No known drug allergies. CURRENT LIST OF MEDICATIONS: Meloxicam 7.5 mg b.i.d., Percocet 10/325 every 4 hours p.r.n., Lyrica 75 mg at bedtime, allopurinol, fish oil. PQRS: 1. He has osteoarthritic changes in his neck and lower extremities. Denies any rheumatoid arthritis. Height is 5 feet 6 inches, weight is 190, BMI is 30. 2. Vital signs 161/88, pulse is 78, respirations 20, oxygen sat is 98%. 3. Pain score is 2-3. 4. Denies dizziness, does not need help walking or standing, has not fallen in the last 3 months. 5. The patient is not on any blood thinners, does have a history of hypertension. 6. Opioid therapy is greater than 6 weeks; therefore, an opioid signed contract is on the chart. 7. Risk assessment is moderate. Functional assessment is 40/70. 8. Recreational drug use, he denies. He is not a smoker and does not drink alcohol. According to the prescription monitoring system, the patient is filling [address] [address] PAIN MANAGEMENT CONSULTATION Name: EUGENIOADALBERTO Oksana Room #: REG [facility] Margaret#: [id number] Admission: 05/06/21 Attend Phys: Erica Puentes Discharge: Date of : 58 Report #: [id number] appropriately. He is due to fill his medications later this week. Morphine mEq is 75 MMEs. There is a prescription urine drug screen on the chart that is appropriate for his medication. PHYSICAL EXAMINATION: GENERAL: This is alert and orientated, well-developed, well-nourished 60-year-old gentleman who appears his stated age, rating his pain score today at 2-3. He is a good historian. HEENT: Normocephalic, atraumatic. Extraocular eye muscles are intact. He is wearing a mask. His speech is fluent. EXTREMITIES: No clubbing, no cyanosis, no edema. He has tenderness in his left knee that is worse with activity and ambulation. MUSCULOSKELETAL: Upper extremity strength is symmetrical at 5/5. Cervical provocation testing is met with slight increase in pain. Sensation is intact. Cervical radicular symptoms follow the C6-7 and C7 dermatomal distribution, greater on the right than the left. IMPRESSION: 1. Cervical radiculopathy. 2. Failed cervical spine surgery. 3. Opioid dependency. 4. Chronic intractable pain. 5. Osteoarthritis affecting multiple joints, right knee bothersome. 6. Complex medical management utilizing scheduled opioid medications. We reviewed the fact that opiate medications are being used to provide analgesia adequate to support activities of daily living, not attempting to achieve a specific pain score on the 0-10 Visual Analog Scale. The current opiate medications are providing sufficient analgesia to allow the patient to participate in activities of daily living. The patient is not exhibiting any aberrant behavior suggestive of drug diversion. The patient is not having any adverse reactions to medications. The patient is not suffering from daytime somnolence or mental acuity changes. The patient is managing opiate-induced constipation with appropriate lkau-vbc-qvjsbvx agents and dietary considerations. The patient was counseled on concern for caution with operating a motor vehicle while using opiate medications. A physical exam was performed and the patient's functional status was evaluated. All patients with back pain were advised against the bed rest greater than 4 days and were advised to return to normal activities. Pain score assessment was noted and the treatment plan was reviewed with the patient. All current medications, both prescribed and OTC were reviewed and reconciled on the electronic medical record. Tobacco screening was accomplished and smoking cessation was advised when indicated. BMI was noted and diet/exercise modification was recommended for all patients following outside normal parameters. [address] [address] PAIN MANAGEMENT CONSULTATION Name: ADALBERTO BECKER Room #: [facility]#: [id number] Admission: 05/06/21 Attend Phys: Erica Puentes Discharge: Date of : 58 Report #: [id number] I reviewed with the patient today their responsibilities to safeguard prescription medications, reviewed their responsibility to utilize medications only as prescribed by the physician. They are to seek and receive pain medications only from 1 physician group ( [facility]). They are to use 1 pharmacy and keep the clinic informed if they change pharmacies. Their responsibilities include making followup visits in a timely fashion and to avoid abrupt discontinuation of medication usage. Their responsibilities further include bringing their medications (bottles from the pharmacy with residual pills) to the visit for possible confirmation of pill counts and the patient understands it is their responsibility to submit to random drug screens to ensure both that the medications prescribed are present, and that no other controlled substances are present. All prescriptions provided today were generated electronically. PLAN: 1. We discussed treatment options with the patient today. The patient feels the oxycodone is beneficial in controlling his pain. He would like to fill his medications this week due to going out of town to settle his father's estate this weekend. I explained that he will be able to pick these up on Thursday that will be 28 days from his last script. He did have an early refill in March due to have another in the family, which required an early refill. 2. The patient continues meloxicam on an as-needed basis. I encouraged him to continue this. This will help with his arthritic joints. 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 The patient does not have any GI side effects from his meloxicam and he does not need that prescription filled today. Time spent in consultation, reviewing recent studies and clinical notes, physician reports, physical examination and correlation of findings and medical documentation to determine possible treatment options, 14 minutes. Time spent in preparation for appointment, reviewing prescription monitoring system, reviewing previous records and proposed treatment options and current medications, 5 minutes. Time spent preparing and sending electronic prescriptions and collaborating with Dr. Doug Jason, documentation of visit and plan of treatment, 6 minutes. Total time spent 25 minutes. <ELECTRONICALLY SIGNED> By: Erica Puentes 05/07/21 1427 0825 0905 Erica Puentes /nt
== END ==
LOC: PAIN 07:02
PROVIDERS: ATTEND Clinical Nurse Specialist Adult Health
DX: G89.29 Other chronic pain (principal); M54.12 Radiculopathy, cervical region; M17.11 Unilateral primary osteoarthritis, right knee; F11.20 Opioid dependence, uncomplicated; Z79.899 Other long term (current) drug therapy

== ENCOUNTER → 2021-06-25 | Outpatient (CLI) | payer BC, OTHER ==
[~2021-06-25] VITALS: Ht 167.6 cm; Wt 87.2 kg
[2021-06-25 08:43] VITALS: BP 161/80
--- NOTE | 2021-06-25 08:51 | NUR ---
Pain Clinic Assessment: 1. History of Osteoarthritis: NECK History of Rheumatoid Arthritis: DENIES 2. Height: 5 ft. 6 in. 167.6 cm. Weight: 192.2 lb. oz. 87.181 kg. Patient's BMI: 31.0 3. Vital Signs: BP: 161/80 Pulse: 77 Resp: 16 Temp: 02 Sat: 100 ECG Mon: 4. Pain Intensity: 2-3 5. Fall Risk: Dizziness: N Needs help standing or walking: N Fallen in the last 3 months: N Fall risk comments: 1 6. Patient on Blood Thinner: None 7. History of Hypertension: Y 8. Opioid Therapy greater than 6 weeks: Y Opiate Contract Signed: 03/14/16 9. Risk Assessment Tool Provided: MOD-6 10. Functional Assessment Tool: 11. Recreational Drug Use: Never Drug Type: Tobacco Use: Never Smoker Tobacco Type: Amount or Packs/day: How Many Years: Alcohol Use: Past use Frequency: Quant:
--- NOTE | 2021-06-25 14:13 | HPC ---
[facility] [place] [address] [place] [address] PAIN MANAGEMENT CONSULTATION Name: ADALBERTO BECKER [facility] [id number] Admission: 06/25/21 Attend Phys: Doug Jason DO Discharge: Date of : 58 Report #: [id number] THIS REPORT FOR: cc: Arnie Whipple,Doug Alfaro DO ~ cc: Arnie Whipple DATE OF SERVICE: 06/25/2021 REFERRING PHYSICIAN: Dr. Arnie Whipple. CHIEF COMPLAINT: Neck pain, upper extremity pain with paresthesias and chronic left knee pain. HISTORY OF PRESENT ILLNESS: As you know, the patient is a very pleasant 60-year-old male returning in followup visit for medication management. He is placing his pain today at 2-3/10. The patient begins by stating his pain begins in his neck and radiates to his right arm and shoulder, which is constant in nature. He also is experiencing continued left knee pain due to osteoarthritis. He describes the pain as aching and constant in its presentation; exacerbated with certain activities; improves with medications, rest and heat and cold compresses and repositioning. He returns today in followup visit stating that without the medications, he would not be able to participate in his daily activities and his work activities. He is requesting refills to be provided today. He is denying side effects of sleepiness, disorientation, confusion, mental slowing or constipation with their use. He is very pleased with response to treatment and wishing to continue current oral medication management. ALLERGIES: No known drug allergies. CURRENT MEDICATIONS: Percocet 10/325 one tab every 6 hours p.r.n. for pain, meloxicam 7.5 mg b.i.d., pregabalin 75 mg b.i.d., allopurinol 100 mg once a day, omega-3 fish oil 1 tab per day. SOCIAL HISTORY: The patient denies tobacco, alcohol, IV or illicit drug use. He is working, not receiving workmen's compensation, unaccompanied today. IMAGING: There is no new imaging available. PHYSICAL EXAMINATION: VITAL SIGNS: Blood pressure 161/80, pulse 77, respiratory rate 16 and unlabored. The patient 100% on room air. Height 5 feet 6 inches tall, weight 192.2 pounds, BMI calculated 31.0. GENERAL: Well-developed, well-nourished, well-hydrated 60-year-old male, appearing stated age, pain is rated today 2-3/10. HEENT: Normocephalic, atraumatic. Pupils equal, [place] [address] PAIN MANAGEMENT CONSULTATION Name: ADALBERTO BECKER Room #: REG [facility].#: [id number] Admission: 06/25/21 Attend Phys: Doug Jason DO Discharge: Date of : 58 Report #: [id number] Extraocular muscles are intact. He is wearing a mask in compliance with COVID-19 regulations. EXTREMITIES: Show no clubbing, no cyanosis and no edema. MUSCULOSKELETAL: Upper extremity strength equal and symmetrical 5/5. Muscle bulk and tone is equal and symmetrical. Sensation is intact. Cervical radicular dermatomal pain along the C6-C7 dermatome on the right. No atrophy noted in the musculature. Cervical provocation testing met with slight increase in neck pain. Active and passive range of motion of the left knee is met with slight increase in pain. Anterior and posterior drawer tests are negative. ASSESSMENT: 1. Cervical radiculopathy. 2. Failed cervical spine surgery. 3. Chronic knee pain secondary to osteoarthritis. 4. Opioid dependency. 5. Complex medication management utilizing scheduled medications. PLAN: 1. The patient returns today in followup visit, complaining of pain levels of about 2-3/10. He states overall he is doing very well with current medication dosing. The combination of oxycodone, tramadol and meloxicam does appear to be effective in treating his symptoms. He states that the symptoms he is experiencing is tolerable in nature. He can continue to participate in daily activities and is noticing no decrease in function when on the medication, but does notice that he is unable to do certain activities if the medication is not present. He returns today requesting refill on medications. He is denying side effects with its use. 2. We reviewed the fact that opiate medications are being used to provide analgesia adequate to support activities of daily living, not attempting to achieve a specific pain score on the 0-10 Visual Analog Scale. The current opiate medications are providing sufficient analgesia to allow the patient to participate in activities of daily living. The patient is not exhibiting any aberrant behavior suggestive of drug diversion. The patient is not having any adverse reactions to medications. The patient is not suffering from daytime somnolence or mental acuity changes. The patient is managing opiate-induced constipation with appropriate zabv-isx-hkozpbo agents and dietary considerations. The patient was counseled on concern for caution with operating a motor vehicle while using opiate medications. A physical exam was performed and the patient's functional status was evaluated. All patients with back pain were advised against the bed rest greater than 4 days and were advised to return to normal activities. Pain score assessment was noted and the treatment plan was reviewed with the patient. All current medications, both prescribed and OTC were reviewed and reconciled on the electronic medical record. Tobacco screening was accomplished and smoking cessation was advised when indicated. BMI was noted and diet/exercise [facility] [address] [place] [address] PAIN MANAGEMENT CONSULTATION Name: ADALBERTO BECKER Room #: [facility].#: [id number] Admission: 06/25/21 Attend Phys: Doug Jason DO Discharge: Date of : 58 Report #: [id number] modification was recommended for all patients following outside normal parameters. I reviewed with the patient today their responsibilities to safeguard prescription medications, reviewed their responsibility to utilize medications only as prescribed by the physician. They are to seek and receive pain medications only from 1 physician group ( [facility]). They are to use 1 pharmacy and keep the clinic informed if they change pharmacies. Their responsibilities include making followup visits in a timely fashion and to avoid abrupt discontinuation of medication usage. Their responsibilities further include bringing their medications (bottles from the pharmacy with residual pills) to the visit for possible confirmation of pill counts and the patient understands it is their responsibility to submit to random drug screens to ensure both that the medications prescribed are present, and that no other controlled substances are present. All prescriptions provided today were generated electronically. 3. The patient was provided a prescription of Percocet / one tab p.o. q. 5 hours p.r.n. for pain. I have given the patient #150, releasing today and 4 weeks from today, 2 months' worth of medication. We did discuss that his MMEs are equating to about 75, which is elevated in the current dosing regimen of no more than 90 morphine equivalents based on CDC's recommendations. The patient appears to be tolerating the medication. He continues to work and participate in daily activities, would recommend continuing the treatment. 4. The patient was provided prescription of meloxicam 7.5 mg 1 tab p.o. b.i.d., I have given the patient #60 tablets and multiple refills. 5. We will see the patient back in followup visit in 2 months for medication management, he can follow up with myself or nurse practitioner, Erica Puentes. <ELECTRONICALLY SIGNED> By: Doug Jason DO 06/25/21 1413 0850 1052 Doug Jason DO /nt
== END ==
LOC: PAIN 08:31
PROVIDERS: ATTEND Anesthesiology Pain Medicine
DX: M54.12 Radiculopathy, cervical region (principal); M96.1 Postlaminectomy syndrome, not elsewhere classified; M25.562 Pain in left knee; M19.90 Unspecified osteoarthritis, unspecified site; F11.20 Opioid dependence, uncomplicated; Z79.899 Other long term (current) drug therapy

== ENCOUNTER → 2021-08-27 | Outpatient (CLI) | payer BC, OTHER ==
[~2021-08-27] VITALS: Ht 167.6 cm; Wt 87.8 kg
[2021-08-27 08:09] VITALS: BP 133/91
--- NOTE | 2021-08-27 08:21 | NUR ---
Pain Clinic Assessment: 1. History of Osteoarthritis: NECK History of Rheumatoid Arthritis: DENIES 2. Height: 5 ft. 6 in. 167.6 cm. Weight: 193.6 lb. oz. 87.816 kg. Patient's BMI: 31.3 3. Vital Signs: BP: 133/91 Pulse: 80 Resp: 14 Temp: 02 Sat: 100 ECG Mon: 4. Pain Intensity: 2 5. Fall Risk: Dizziness: N Needs help standing or walking: N Fallen in the last 3 months: N Fall risk comments: 1 6. Patient on Blood Thinner: None 7. History of Hypertension: Y 8. Opioid Therapy greater than 6 weeks: Y Opiate Contract Signed: 03/14/16 9. Risk Assessment Tool Provided: MOD-6 10. Functional Assessment Tool: 11. Recreational Drug Use: Never Drug Type: Tobacco Use: Never Smoker Tobacco Type: Amount or Packs/day: How Many Years: Alcohol Use: Past use Frequency: Quant:
== END ==
LOC: PAIN 08-20 08:32
PROVIDERS: ATTEND Clinical Nurse Specialist Adult Health
DX: M54.12 Radiculopathy, cervical region (principal); M96.1 Postlaminectomy syndrome, not elsewhere classified; M79.629 Pain in unspecified upper arm; F11.20 Opioid dependence, uncomplicated; Z86.16 Personal history of COVID-19; Z79.899 Other long term (current) drug therapy